=== PATIENT | female | born 1960 | race Caucasian/White ===

== ENCOUNTER 2018-08-10 18:20 | Observation (INO) ==
[2018-08-10] MEDS ORDERED: Ipratropium/Albuterol Neb 3 ML IH ONE ×2 (18:42→18:53)
[2018-08-10] MEDS ORDERED: predniSONE 20 MG TABLET PO ONE (18:42)
--- NOTE | 2018-08-10 19:03 | Emergency Department Note ---
Disposition Clinical Impression: Acute exacerbation of chronic obstructive airways disease, HOCM (hypertrophic obstructive cardiomyopathy), Dyspnea on exertion Disposition: Admitted As Inpatient Condition: Good Forms: ED Satisfaction Letter Time of Disposition: 21:10 SOB HPI - General Chief Complaint: ED Shortness of Breath/Dyspnea Stated Complaint: ERICK Time Seen by Provider: 08/10/18 18:35 Source: patient, family Limitations: no limitations Nursing Notes Reviewed: Yes Vital Signs Reviewed: Yes - History of Present Illness 57-year-old female history of COPD no home oxygen supplementation, CAD s/p stent presents to the emergency department for shortness of breath. She reports dyspnea on exertion. This is been ongoing for approximately 3 weeks. She was admitted at that time initially and had issues with hypoxia. She states her echocardiogram revealed a thickened septum. Upon review she had LVOT. She was recently evaluated a week ago for similar symptoms and discharge home. I saw h er at this time in she looks the same. She has reports of left lower leg swelling that was negative for deep vein thrombosis. She also had a CT imaging of her chest that did not reveal pulmonary embolism. She denies any fever or cough. She does not have a controller inhaler. She only takes DuoNeb and albuterol. She continues to smoke. Denies any chest pain or syncope. She currently finished her steroids. Pt Subjective Complaint: shortness of breath - Related Data Home Medications Medication Instructions Recorded Confirmed Albuterol Sulfate [Proair 2 puff IH Q4H PRN 04/26/15 08/10/18 Respiclick] Cyclobenzaprine [Flexeril] 10 mg PO BID 01/12/16 08/10/18 Gabapentin [Neurontin] 600 mg PO TID 01/12/16 08/10/18 Albuterol Neb [Proventil Neb] 3 ml IH TID PRN 05/29/16 08/10/18 Furosemide [Lasix] 40 - 80 mg PO BID PRN 02/07/17 08/10/18 Potassium Chloride [K-Tab ER] 20 meq PO BID PRN 02/07/17 08/10/18 Hydrocodone/Acetaminophen [[place] 1 tab PO Q6H PRN 07/28/18 08/10/18 5-325 Tablet] Magnesium Oxide [Magnesium] 250 mg PO DAILY 07/28/18 08/10/18 Aspirin [Adult Aspirin] 81 mg PO DAILY 08/10/18 08/10/18 Previous Rx's Medication Instructions Recorded Atorvastatin [Lipitor] 20 mg PO HS #30 tablet 07/31/18 Metoprolol XL (24 HR) Succ [Toprol 25 mg PO DAILY #30 tab.er.24h 07/31/18 Xl] Allergies Allergy/AdvReac Type Severity Reaction Status Date / Time Penicillins Allergy Severe See Verified 07/27/18 16:50 Comments Sulfa (Sulfonamide Allergy Nausea Verified 07/27/18 16:50 Antibiotics) ibuprofen AdvReac See Verified 07/27/18 16:50 Comments mirtazapine [From Remeron] AdvReac Seizure Verified 07/27/18 16:50 All systems ED: reviewed and negative except as stated. Review of Systems: As Per HPI Constitutional: Denies: fever, chills ENT ED: Denies: congestion Cardiovascular: Reports: dyspnea on exertion. Denies: chest pain Respiratory: Reports: cough, dyspnea Gastrointestinal: Denies: abdominal pain, nausea, vomiting Genitourinary: Denies: dysuria Musculoskeletal: Denies: back pain Integumentary: Denies: rash, abrasion Neurological: Denies: headache, weakness, numbness Endocrine: Reports: fatigue Past Medical History - Past Medical History Attestation: Yes The following information was validated with the patient. Source: patient Medical history: Reports: cancer, COPD, coronary artery disease, hyperlipidemia, hypertension, myocardial infarction Surgical history: Reports: angioplasty/stent, appendectomy, cholecystectomy, hysterectomy, orthopedic, other Psychiatric history: Reports: anxiety, depression TAX ADVISOR history: Reports: non-contributory - Social History Smoking Status: Current every day smoker Smokeless Tobacco Status: No Alcohol use: Reports: none Drug use: Reports: none Physical Exam - General Limitations: no limitations General appearance: alert, in distress (Moderate respiratory distress, dyspnea at rest with conversation), obese - Head Head exam: atraumatic, normocephalic, normal inspection - Chest Chest inspection: Present: normal inspection, symmetric chest wall rise - Respiratory Respiratory exam: Present: respiratory distress, wheezes, prolonged expiratory phase - Expanded Respiratory Exam Location: wheezes: Left, Right - Cardiovascular Cardiovascular exam: Present: regular rate, normal rhythm, normal heart sounds, other (no murmur with Valsalva) - Expanded Cardiovascular Exam Peripheral pulses: 2+: radial (R), radial (L) - Abdominal Exam Abdominal exam: Present: soft, Non-Tender, normal bowel sounds. Absent: tenderness, distention, guarding, rebound, rigidity - Extremities Exam Extremities exam: Present: normal inspection, full ROM, pedal edema (L > R), calf tenderness. Absent: tenderness - Back Exam Back exam: Present: normal inspection, full ROM. Absent: tenderness - Neurological Exam Neurological exam: Present: alert, oriented X3 - Psychiatric Psychiatric exam: Present: normal affect, anxious - Skin Skin exam: Present: warm, dry, intact, normal color. Absent: rash, cyanosis, diaphoresis Course Course Narrative: Patient presents with dyspnea on exertion and now at rest. She does continue to smoke. Recently evaluated 2 times for similar symptoms 1 requiring admission. She reports a thickened septum which revealed on her echocardiogram LVOT. She does not have a murmur on auscultation at bedside. Chest pain workup initiated including COPD exacerbation treatment as she has diffuse wheezing bilaterally. - Reevaluation(s) Reevaluation #1: Patient has significant improvement of her symptoms with a breathing treatment. Her chest x-ray did not reveal any pulmonary infiltrates. Troponin less than 0.03. Her labs or otherwise unremarkable. I discussed with cardiology on disposition including outpatient follow-up. Given her persistent symptoms it would benefit her to control other comorbidities including her COPD. At this time patient will be admitted for her COPD exacerbation after steroid in breathing treatments and have cardiology consulted regarding her LVOT. Patient is agreeable to this plan. - Consultations Consultation #1: Spoke to the on-call mirror framer Dr. Owen discussing prior ECHO 07/28 with 29 mmHg max gradient. Given symptoms and repeat ED visit may require admission for prompt cardiology consultation. Otherwise if significantly better may be ok to discharge home with outpatient follow-up. She is currently 96% on room air. Time: 19:35 Vital Signs Temperature 97.9 F 08/10/18 18:33 Pulse Rate 97 08/10/18 18:33 Respiratory Rate 18 08/10/18 18:33 Blood Pressure 155/72 08/10/18 18:33 O2 Sat by Pulse Oximetry 95 08/10/18 18:33 Temperature 98.5 F 08/10/18 20:50 Pulse Rate 106 08/10/18 20:50 Respiratory Rate 22 08/10/18 20:50 Blood Pressure 137/90 08/10/18 20:50 O2 Sat by Pulse Oximetry 93 08/10/18 20:55 Oxygen Delivery Oxygen Delivery Room Air Shortness of Breath/Dyspnea - MDM Narrative Medical decision making narrative: Patient was discussed with my attending physician who agrees with ED management and final disposition. They independently evaluated the patient. Please refer to their attestation to this encounter for additional information. This note was generated by [employer] voice recognition software and as a result grammatical or spelling errors may occur using this program. - Medical Records Medical records reviewed: Yes I reviewed the patient's medical records. - Lab Data Lab results reviewed: Yes I reviewed the patient's lab results. Result diagrams: 08/10/18 18:57 08/10/18 18:57 Lab Results 08/10/18 08/10/18 08/10/18 Range/Units 18:57 18:57 18:57 WBC 9.4 (4.3-11.1) K/mcL RBC 4.48 (3.82-4.97) M/mcL Hgb 14.3 (11.5-15.4) g/dL Hct 43.2 (35.3-44.9) % MCV 96.4 (83.0-100.0) fL MCH 31.9 (28.0-33.3) pg MCHC 33.1 (31.6-35.5) g/dL RDW 15.0 H (11.5-14.5) % Plt Count 83 L (140-400) K/mcL MPV 11.6 (9.4-12.4) fL Immature Gran % 0.3 (0-4) % Seg Neutrophils % 70.4 % Lymphocytes % 18.8 % Monocytes % 7.9 % Eosinophils % 2.0 % Basophils % 0.6 % Neutrophils # 6.6 (1.6-8.9) K/mcL Lymphocytes # 1.8 (0.6-4.6) K/mcL Monocytes # 0.7 (0.0-1.3) K/mcL Eosinophils # 0.2 (0.0-0.6) K/mcL Basophils # 0.1 (0.0-0.2) K/mcL Platelet Estimate Decreased L (Normal) Sodium 141 (136-145) mEq/L Potassium 3.9 (3.5-5.1) mEq/L Chloride 107 (98-107) mEq/L Carbon Dioxide 26 (23-29) mEq/L BUN 11 (6-20) mg/dL Creatinine 0.62 (0.60-1.20) mg/dL Est GFR ( Amer) > 60 (> 60) Est GFR (Non-Af Amer) > 60 (> 60) BUN/Creatinine Ratio 18 (6-26) Glucose 134 H (70-105) mg/dL Calculated Osmolality 293 (280-300) Calcium 9.4 (8.6-10.3) mg/dL Troponin I < 0.03 (< 0.04) ng/mL B-Natriuretic Peptide 72 (Less than 100) pg/mL - Radiology Data Radiology results reviewed: Yes I reviewed the patient's radiology results. Chest X-Ray 08/10/18 18:42 IMPRESSION: No acute pulmonary process. D/ / 08/10/2018 19:44:20 Rene Ramos MD / jose Interpreting Provider: Rene Ramos MD - EKG Data EKG attestation: Yes I reviewed and interpreted this EKG. EKG results narrative: EKG performed 1847 normal sinus rhythm 96 beats per minute, normal axis, early R wave progression, no ST elevation or depression, no LVH or Q waves. Compared to prior EKG performed 07/28/2017 with similar consistent findings concerning for a right ventricular conduction delay. No acute ischemic changes.
[2018-08-10 19:11] LABS: Basophils # 0.1 K/mcL (0.0-0.2); Basophils % 0.6 %; Eosinophils # 0.2 K/mcL (0.0-0.6); Hematocrit 43.2 % (35.3-44.9); Hemoglobin 14.3 g/dL (11.5-15.4); Immature Granulocytes % 0.3 % (0-4); Lymphocytes # 1.8 K/mcL (0.6-4.6); Lymphocytes % 18.8 %; Mean Corpuscular HGB Conc 33.1 g/dL (31.6-35.5); Mean Corpuscular Hemoglobin 31.9 pg (28.0-33.3); Mean Corpuscular Volume 96.4 fL (83.0-100.0); Mean Platelet Volume 11.6 fL (9.4-12.4); Monocytes % 7.9 %; Neutrophils # 6.6 K/mcL (1.6-8.9); Red Blood Count 4.48 M/mcL (3.82-4.97); Segmented Neutrophils % 70.4 %
[2018-08-10 19:12] LABS: Monocytes # 0.7 K/mcL (0.0-1.3); Platelet Count 83 K/mcL (140-400)
--- NOTE | 2018-08-10 19:25 | Emergency Department Note ---
Disposition Clinical Impression: Acute exacerbation of chronic obstructive airways disease Disposition: Still a Patient Forms: ED Satisfaction Letter General Adult HPI - General Chief complaint: ED Shortness of Breath/Dyspnea Stated complaint: ERICK Time Seen by Provider: 08/10/18 18:35 Source: patient, family Limitations: no limitations Nursing Notes Reviewed: Yes Vital Signs Reviewed: Yes - History of Present Illness HPI Narrative: ED ATTESTATION NOTE: I examined this patient and my medical decision-making was reviewed with the Resident Physician/AUTO PORTER/PA/Student. I have personally performed a face to face evaluation on this patient & I agree with the documented findings, disposition and treatment plan as described except to the extent set forth below. Patient was seen with emergency medicine resident Dr. Shine Willams please see copy of his note for details of this encounter Briefly: 49-year-old female smoker COPD no home O2 recently worked up for PE which a CT was negative consumed increasing cough shortness of breath some sputum denies fevers chills or anterior chest pain. Patient get DuoNeb steroids chest x-ray and screening labs. Disposition pending. Pain Scale: 4 - Related Data Home Medications Medication Instructions Recorded Confirmed Albuterol Sulfate [Proair 2 puff IH Q4H PRN 04/26/15 07/28/18 Respiclick] Fluticasone/Salmeterol [Advair 1 puff IH DAILY 04/26/15 07/28/18 250-50 Diskus] Cyclobenzaprine [Flexeril] 10 mg PO BID 01/12/16 07/28/18 Gabapentin [Neurontin] 600 mg PO TID 01/12/16 07/28/18 Albuterol Neb [Proventil Neb] 3 ml IH TID PRN 05/29/16 07/28/18 Furosemide [Lasix] 40 - 80 mg PO BID PRN 02/07/17 07/28/18 Potassium Chloride [K-Tab ER] 20 meq PO BID PRN 02/07/17 07/28/18 Hydrocodone/Acetaminophen [[place] 1 tab PO Q6H PRN 07/28/18 07/28/18 5-325 Tablet] Magnesium Oxide [Magnesium] 250 mg PO DAILY 07/28/18 07/28/18 Previous Rx's Medication Instructions Recorded Atorvastatin [Lipitor] 20 mg PO HS #30 tablet 07/31/18 Metoprolol XL (24 HR) Succ [Toprol 25 mg PO DAILY #30 tab.er.24h 07/31/18 Xl] predniSONE [PredniSONE] 40 mg PO DAILY #10 tablet 07/31/18 Allergies Allergy/AdvReac Type Severity Reaction Status Date / Time Penicillins Allergy Severe See Verified 07/27/18 16:50 Comments Sulfa (Sulfonamide Allergy Nausea Verified 07/27/18 16:50 Antibiotics) ibuprofen AdvReac See Verified 07/27/18 16:50 Comments mirtazapine [From Remeron] AdvReac Seizure Verified 07/27/18 16:50 Past Medical History - Past Medical History Medical history: Reports: cancer, COPD, coronary artery disease, hyperlipidemia, hypertension, myocardial infarction Surgical history: Reports: angioplasty/stent, appendectomy, cholecystectomy, hysterectomy, orthopedic, other Psychiatric history: Reports: anxiety, depression SKIN CARE SPECIALIST history: Reports: non-contributory - Social History Smoking Status: Current every day smoker Smokeless Tobacco Status: No Alcohol use: Reports: none Drug use: Reports: none Physical Exam - General Limitations: no limitations General appearance: alert, in distress (Moderate respiratory distress, dyspnea at rest with conversation), obese Course Vital Signs Temperature 97.9 F 08/10/18 18:33 Pulse Rate 97 08/10/18 18:33 Respiratory Rate 18 08/10/18 18:33 Blood Pressure 155/72 08/10/18 18:33 O2 Sat by Pulse Oximetry 95 08/10/18 18:33 Temperature 97.9 F 08/10/18 18:33 Pulse Rate 97 08/10/18 18:33 Respiratory Rate 18 08/10/18 18:33 Blood Pressure 155/72 08/10/18 18:33 O2 Sat by Pulse Oximetry 95 08/10/18 18:33 Oxygen Delivery Oxygen Delivery Room Air Medical Decision Making - Lab Data Result diagrams: 08/10/18 18:57 Lab Results 08/10/18 Range/Units 18:57 WBC 9.4 (4.3-11.1) K/mcL RBC 4.48 (3.82-4.97) M/mcL Hgb 14.3 (11.5-15.4) g/dL Hct 43.2 (35.3-44.9) % MCV 96.4 (83.0-100.0) fL MCH 31.9 (28.0-33.3) pg MCHC 33.1 (31.6-35.5) g/dL RDW 15.0 H (11.5-14.5) % Plt Count 83 L (140-400) K/mcL MPV 11.6 (9.4-12.4) fL
[2018-08-10 19:34] LABS: BUN/Creatinine Ratio 18 (6-26); Blood Urea Nitrogen 11 mg/dL (6-20); Calcium 9.4 mg/dL (8.6-10.3); Carbon Dioxide 26 mEq/L (23-29); Chloride 107 mEq/L (98-107); Glucose 134 mg/dL (70-105); Osmolality,Calculated 293 (280-300); Potassium 3.9 mEq/L (3.5-5.1); Sodium 141 mEq/L (136-145); Troponin I < 0.03 ng/mL (< 0.04); eGFR For Non-African Americans > 60 (> 60)
[2018-08-10 19:35] LABS: Platelet Estimate Decreased (Normal)
[2018-08-10] MEDS ORDERED: Naloxone 0.4 MG/ML INJ IVP PRN (21:54)
--- NOTE | 2018-08-10 22:31 | Internal Med History&Physical ---
Date of Encounter: 08/10/18 Time of Encounter: 21:56 Internal Medicine - H&P: HPI Chief complaint: Chest Pain/SOB History of present illness: Ms. Flores is a 57 year old female with past medical history of COPD, hypothyroidism, CAD with 2 stents, HOCM who presented to the ED complaining of progressive shortness of breath over the past 3 weeks and chest pain. Patient r eports dyspnea at rest and with exertion. No fever or chills. She does have a nonproductive cough at baseline but denies it being any worse. Has also noted lower extremity swelling more predominantly on the left leg. She reports intermittent right midsternal stabbing chest pain radiating to her right arm and back occurring at rest and with exertion. No other aggravating or alleviating factors. Patient states she sleeps in a reclining position with 2 pillows and is unable to lay flat. No reports of PND. Patient currently takes Lasix as needed but was recently instructed not to take it. Patient was recently discharged on the for evaluation of chest pain and COPD exacerbation. She does have a history of hypertrophic obstructive cardiomyopathy. Repeat echo at that time was concerning for worsening LVOT obstruction. She was seen by cardiology and patient was started on Toprol and instructed to take Lasix only with a 3 pound weight gain. Patient was again seen in the hospital on the for similar presentation. At the time left lower extremity duplex was negative for DVT and CTA was negative for PE. On arrival patient was mildly hypoxemic with saturations between 88 and 90 on room air which responded to 2 L nasal cannula. Blood pressure stable. Mildly tachycardic between 97 and 106. Laboratory workup was otherwise relatively unremarkable including negative troponin. Chest x-ray showed no acute pulmonary process. Patient received DuoNeb's and steroids. Case was discussed with cardiology who will reevaluate in the morning. Past Med Surg Social Fam HX - Past Medical History Medical history: cancer, COPD, coronary artery disease, hyperlipidemia, hypertension, myocardial infarction Additional medical history: cad, cvd, tachycardia. pneumonia 3 weeks ago. SMOKER. [place]. HEART STENTS. HYPOKALEMIA. THROMBOCYTOPENIA. CKD Psychiatric history: anxiety, depression - Past Surgical History Surgical History: angioplasty/stent, appendectomy, cholecystectomy, hysterectomy, orthopedic, other Additional surgical history: mi. hemorrhoid. lasik. right shoulder x 3. blad sarah sling - Social History Smoking Status: Current every day smoker Smokeless Tobacco Status: No Alcohol use: none Drug use: none - Family History Mother Living Status: Hx Family Cardiac Disorders: Yes Hx Family Endocrine Disorder: Yes (diabetes) Father Living Status: Hx Family Cardiac Disorders: Yes (CAD) Hx Family Respiratory Disorders: Yes Internal Medicine - H&P: Meds Albuterol Sulfate [Proair Respiclick] 2 puff IH Q4H PRN 04/26/15 [History] Cyclobenzaprine [Flexeril] 10 mg PO BID 01/12/16 [History] Gabapentin [Neurontin] 600 mg PO TID 01/12/16 [History] Albuterol Neb [Proventil Neb] 3 ml IH TID PRN 05/29/16 [History] Furosemide [Lasix] 40 - 80 mg PO BID PRN 02/07/17 [History] Potassium Chloride [K-Tab ER] 20 meq PO BID PRN 02/07/17 [History] Hydrocodone/Acetaminophen [[place] 5-325 Tablet] 1 tab PO Q6H PRN 07/28/18 [History] Magnesium Oxide [Magnesium] 250 mg PO DAILY 07/28/18 [History] Atorvastatin [Lipitor] 20 mg PO HS #30 tablet 07/31/18 [Rx] Metoprolol XL (24 HR) Succ [Toprol Xl] 25 mg PO DAILY #30 tab.er.24h 07/31/18 [Rx] Aspirin [Adult Aspirin] 81 mg PO DAILY 08/10/18 [History] Allergy/AdvReac Type Severity Reaction Status Date / Time Penicillins Allergy Severe See Verified 07/27/18 16:50 Comments Sulfa (Sulfonamide Allergy Nausea Verified 07/27/18 16:50 Antibiotics) ibuprofen AdvReac See Verified 07/27/18 16:50 Comments mirtazapine [From Remeron] AdvReac Seizure Verified 07/27/18 16:50 All Systems PM: A 10-system review of systems was performed and is negative for pertinent findings except as documented above in the HPI. - Constitutional Constitutional: no chills, no fever(s), no night sweats - EENT Eyes: no change in vision, no discharge, no pain, no photophobia Ears: no ear discharge, no ear pain, no tinnitus Nose, mouth and throat: no dysphagia, no nasal discharge, no neck pain, no sore throat - Cardiovascular Cardiovascular ROS IM: no chest pain, no diaphoresis, no dyspnea, no lightheadedness, no palpitations, no syncope - Respiratory Respiratory: no cough, no dyspnea, no wheezing, no excessive phlegm production - Gastrointestinal Gastrointestinal: no abdominal pain, no diarrhea, no hematemesis, no hematochezia, no melena, no nausea, no vomiting - Genitourinary Genitourinary: no change in urinary stream, no dysuria, no flank pain, no hematuria - Musculoskeletal Musculoskeletal ROS IM: no numbness, no tingling - Integumentary Integumentary IM: no rash, no unusual bruising - Neurological Neurological ROS: no confusion, no convulsions, no focal weakness, no numbness, no tingling, no tremor(s) - Hematologic/Lymphatic Hematologic/Lymphatic: no easy bruising - Constitutional Vitals: Temp Pulse Resp BP Pulse Ox 98.5 F 106 22 137/90 93 08/10/18 20:50 08/10/18 20:50 08/10/18 20:50 08/10/18 20:50 08/10/18 20:55 Exam: General: Alert and oriented Skin:Normal color, no rash, no lesions. HEENT:EOM, pupils equal, round and reactive. Cardiovascular:Normal S1 & S2, no rubs, murmurs or gallops. No JVD. Pulse regular. Lungs:Normal breath sounds, no wheezes or crackles. Abdomen:Soft, non-tender, no rigidity. Extremities:No deformity, no edema or tenderness, no joint swelling or clubbing. Neurological:Normal cognition and motor skills. Pulses:Carotid and radial pulses normal +2. Rest of the physical exam is non contributory Internal Med - H&P Results - Labs CBC & Chem 7: 08/11/18 05:59 08/11/18 05:59 Labs: Short CBC 08/10/18 Range/Units 18:57 WBC 9.4 (4.3-11.1) K/mcL Hgb 14.3 (11.5-15.4) g/dL Hct 43.2 (35.3-44.9) % Plt Count 83 L (140-400) K/mcL Neutrophils # 6.6 (1.6-8.9) K/mcL BMP 08/10/18 18:57 Sodium 141 Potassium 3.9 Chloride 107 Carbon Dioxide 26 BUN 11 Creatinine 0.62 Glucose 134 H Calcium 9.4 Cardiac Enzymes 08/10/18 Range/Units 18:57 Troponin I < 0.03 (< 0.04) ng/mL - Impressions ITS Impressions Chest X-Ray 08/10/18 18:42 IMPRESSION: No acute pulmonary process. D/ / 08/10/2018 19:44:20 Rene Ramos MD / jose Interpreting Provider: Rene Ramos MD - Assessment and Plan (1) Acute respiratory failure with hypoxia Current Visit: No Status: Acute Assessment and plan: Patient presents with shortness of breath of the past 3 weeks. On arrival patient patient saturating between 88-90% on room air. Responded to 2 L nasal cannula. Chest CTA was performed on the which was negative for PE. Chest x-ray on this admission showed no acute pulmonary process. Suspect secondary to COPD exacerbation plus or minus CHF exacerbation. -Continue with 2Oxygen support -Treat for COPD exacerbation -Given patient's history of HOCM, will hold off Lasix for now and wait for cardiology to assess. (2) Acute exacerbation of chronic obstructive airways disease Current Visit: Yes Status: Acute Assessment and plan: Patient presents with progressive shortness of breath for the past 3 weeks. No reports of worsening cough, fever or chills. Chest x-ray showed no acute pulmonary process. Patient was found to be mildly hypoxemic on arrival saturating between 88-90% on room air. Responded to 2 L nasal cannula. Bilateral wheezing and decreased aeration noted on lung examination. Suspect mild COPD exacerbation. -Duo nebs -Steroids -Start patient on azithromycin (3) HOCM (hypertrophic obstructive cardiomyopathy) Current Visit: Yes Status: Chronic Assessment and plan: History of hypertrophic obstructive cardiomyopathy. Repeat echoon 07/28 concerning for worsening LVOT obstruction. She was seen by cardiology and patient was started on Toprol and instructed to take Lasix only with a 3 pound weight gain. Presents again with intermittent right midsternal stabbing chest pain radiating to her right arm and back occurring at rest and with exertion. -Appreciate cardiology recommendations. -continue with BB (4) Chest pain Current Visit: No Status: Acute Assessment and plan: Patient presents with intermittent right midsternal stabbing chest pain radiating to her right arm and back occurring at rest and with exertion. Previous history of coronary artery disease status post stents. Negative troponin 1. EKG shows no ischemic changes. Patient evaluated for similar presentation by cardiology during last admission. Medical management and outpatient follow-up was advised. Low suspicion for ACS at this time. -We will give loading dose of aspirin -Trend troponin -Appreciate cardiology recommendations continue ASA, Statin, BB Qualifiers: Chest pain type: unspecified Qualified Code(s): R07.9 - Chest pain, unspecified (5) Lower extremity edema Current Visit: Yes Status: Acute Assessment and plan: She reports bilateral lower extremity edema with left greater than right. Venous duplex was performed in the ED on the which was negative for DVT. Patient is taking Lasix as needed and was instructed by cardiology to take if she develops a 3 pound weight gain or more. Patient does have 2+ pitting edema more prominently on the left leg. Given patient's history of HOCM will await cardiology evaluation before treating. (6) DVT prophylaxis Current Visit: Yes Status: Acute Assessment and plan: subCutaneous heparin - Time Spent With Patient Total time spent is greater than 50% in coordination of care (as documented) at patient's floor/unit and/or counseling patient:
[2018-08-10] MEDS: Azithromycin 500 MG in D5% in Water 250 ML IVPB SCH (23:33)
[2018-08-11] MEDS ORDERED: Aspirin 325 MG TABLET PO ONE (04:13)
[2018-08-11] MEDS ORDERED: *HR* HYDROcodone/Acet 5/325 mg TABLET PO PRN (04:21)
[2018-08-11] MEDS: *HR* Heparin 5,000 UNIT/ML VIAL SQ SCH ×3 (05:03→20:58)
[2018-08-11 06:48] LABS: Mean Platelet Volume 12.3 fL (9.4-12.4)
[2018-08-11 06:49] LABS: Hematocrit 44.5 % (35.3-44.9); Hemoglobin 14.7 g/dL (11.5-15.4); Immature Platelets 9.8 % (1.1-6.1); Mean Corpuscular Hemoglobin 31.7 pg (28.0-33.3); Mean Corpuscular Volume 95.9 fL (83.0-100.0); Red Blood Count 4.64 M/mcL (3.82-4.97); Red Cell Distribution Width 14.8 % (11.5-14.5)
[2018-08-11 07:09] LABS: BUN/Creatinine Ratio 20 (6-26); Blood Urea Nitrogen 12 mg/dL (6-20); Calcium 9.6 mg/dL (8.6-10.3); Carbon Dioxide 24 mEq/L (23-29); Chloride 106 mEq/L (98-107); Glucose 111 mg/dL (70-105); Osmolality,Calculated 290 (280-300); Potassium 4.6 mEq/L (3.5-5.1); Sodium 140 mEq/L (136-145); Troponin I < 0.03 ng/mL (< 0.04); eGFR For Non-African Americans > 60 (> 60)
[2018-08-11] MEDS: Gabapentin 300 MG CAPSULE PO SCH ×3 (08:36→20:58)
[2018-08-11] MEDS: Magnesium Oxide 400 MG TABLET PO SCH (08:36)
[2018-08-11] MEDS: Metoprolol XL (24 HR) Succ 25 MG TAB.ER.24H PO SCH (08:36)
[2018-08-11] MEDS: Aspirin Enteric Coated 81 MG Tablet PO SCH (08:37)
--- NOTE | 2018-08-11 10:30 | Internal Med Progress Note ---
<Jose Gonzalez - Last Filed: 08/11/18 10:52> Hospitalist Progress Note - Encounter Date of Encounter: 08/11/18 Time of Encounter: 10:26 - Subjective Interval History: Ms. Flores is a 57 year old female with past medical history of COPD not on home O2, hypothyroidism on synthroid, CAD with 2 stents on meoprolol, statin, aspirin, HOCM who presented to the ED complaining of progressive shortness of breath over the past 3 weeks and chest pain. Patient reports dyspnea at rest and with exertion. No fever or chills. She does have a nonproductive cough at baseline but denies it being any worse. Intermittent right midsternal stabbing chest pain radiating to her right arm and back occurring at rest and with exertion is 6/10. No other aggravating or alleviating factors. Patient states she sleeps in a reclining position with 2 pillows and is unable to lay flat. No reports of PND. Does admit to worsening LE edema. Patient used to take Lasix as needed but was recently instructed not to take it, unsure of reasoning. She was discharged recently for similar symptoms. She does have a history of hypertrophic obstructive cardiomyopathy. Repeat echo at this visit was concerning for worsening LVOT obstruction. She was seen by cardiology and started on Toprol. Patient was again seen in the hospital on the for similar presentation. At the time left lower extremity duplex was negative for DVT and CTA was negative for PE. - Exam Vitals: Temp Pulse Resp BP Pulse Ox 97.9 F 82 18 103/66 94 08/11/18 06:52 08/11/18 06:52 08/11/18 06:52 08/11/18 06:52 08/11/18 06:52 Exam: General: Alert and oriented Skin:Normal color, no rash, no lesions. HEENT:EOM, pupils equal, round and reactive. Cardiovascular:Normal S1 & S2, no rubs, murmurs or gallops. No JVD. Pulse regular. Lungs:diffuse wheezing bilaterally. No crackles or rales Abdomen:Soft, non-tender, no rigidity. Extremities:No deformity, 2+ pitting edema BL lower extremity Neurological:Normal cognition and motor skills. Pulses:Carotid and radial pulses normal +2. Rest of the physical exam is non contributory - Assessment and Plan (1) Chest pain Current Visit: Yes Status: Acute Assessment and Plan: 57F PMHx COPD, hypothyroidism, CAD with 2 stents, high BMI presents with chest pain Blood work unremarkable except for low potassium, we will replenish EKG reviewed and no acute changes Troponin negative x 3 last echo less than 2 weeks ago demonstrated evidence of LVOT obstruction, systolic anterior motion of the anterior leaflet of the mitral valve. Continue cardiac monitoring Cardiology has been consulted. Patient is unable to tolerate stress test and it is recommended for her to obtain MRI of the heart at [facility] Continue ASA, metoprolol, O2 as needed for SPO2 > 90. Patient has borderline low BP, will hold nitro for now. [place] 5 as needed for pain. Recent TSH, lipid panel WNL. (2) Acute exacerbation of chronic obstructive airways disease Current Visit: Yes Status: Acute Assessment and Plan: Patient not on home O2. Currently satting well on 2L NC. She is also an active smoker, history of CAD, HOCM. Improved with 60mg prednisone at the emergency department Encouraged smoking cessation CXR without acute process Continue with Nuonebs as needed Prednisone 40mg PO BID O2 for SPO2 > 90% Will consider LABA prior to patient's discharge. (3) HOCM (hypertrophic obstructive cardiomyopathy) Current Visit: Yes Status: Chronic Assessment and Plan: History of HOCM. Patient cannot tolerate stress test. Will continue cardiac monitoring. Cardio consulted and recommendations appreciated. (4) DVT prophylaxis Current Visit: No Status: Acute Assessment and Plan: SubQ heparin (5) Morbid obesity Current Visit: No Status: Chronic Assessment and Plan: Encouraged lifestyle modifications including diet and exercise. Follow up outpatient. DVT Prophylaxis: subq heparin - Time Spent with Patient Total time spent is greater than 50% in coordination of care (as documented) at patient's floor/unit and/or counseling patient: Greater than 35 minutes Plan of Care Discussed with: patient Internal Medicine: Result - Labs CBC & Chem 7: 08/11/18 05:59 08/11/18 05:59 Labs: Short CBC 08/10/18 08/11/18 Range/Units 18:57 05:59 WBC 9.4 6.9 (4.3-11.1) K/mcL Hgb 14.3 14.7 (11.5-15.4) g/dL Hct 43.2 44.5 (35.3-44.9) % Plt Count 83 L 86 L (140-400) K/mcL Neutrophils # 6.6 (1.6-8.9) K/mcL BMP 08/10/18 08/11/18 18:57 05:59 Sodium 141 140 Potassium 3.9 4.6 Chloride 107 106 Carbon Dioxide 26 24 BUN 11 12 Creatinine 0.62 0.60 Glucose 134 H 111 H Calcium 9.4 9.6 Cardiac Enzymes 08/10/18 08/11/18 Range/Units 18:57 05:59 Troponin I < 0.03 < 0.03 (< 0.04) ng/mL - Impressions Impressions Chest X-Ray 08/10/18 18:42 IMPRESSION: No acute pulmonary process. D/ / 08/10/2018 19:44:20 Rene Ramos MD / jose Interpreting Provider: Rene Ramos MD Consult Discharge Plan - Plan Referrals: Nicolette Renteria CNP [Primary Care Provider] - (APPT W/R) <Darrian Sylvester - Last Filed: 08/11/18 15:52> Hospitalist Progress Note - Encounter Date of Encounter: 08/11/18 - Exam Vitals: Temp Pulse Resp BP Pulse Ox 98.1 F 80 17 130/68 95 08/11/18 11:12 08/11/18 11:12 08/11/18 11:12 08/11/18 11:12 08/11/18 11:12 - Assessment and Plan (1) Chest pain Current Visit: Yes Status: Acute (2) Acute respiratory failure with hypoxia Current Visit: No Status: Acute (3) HOCM (hypertrophic obstructive cardiomyopathy) Current Visit: Yes Status: Chronic (4) Acute exacerbation of chronic obstructive airways disease Current Visit: Yes Status: Acute (5) Lower extremity edema Current Visit: Yes Status: Acute (6) DVT prophylaxis Current Visit: Yes Status: Acute - Time Spent with Patient Total time spent is greater than 50% in coordination of care (as documented) at patient's floor/unit and/or counseling patient: Internal Medicine: Result - Labs CBC & Chem 7: 08/11/18 05:59 08/11/18 05:59 Labs: Short CBC 08/10/18 08/11/18 Range/Units 18:57 05:59 WBC 9.4 6.9 (4.3-11.1) K/mcL Hgb 14.3 14.7 (11.5-15.4) g/dL Hct 43.2 44.5 (35.3-44.9) % Plt Count 83 L 86 L (140-400) K/mcL Neutrophils # 6.6 (1.6-8.9) K/mcL BMP 08/10/18 08/11/18 18:57 05:59 Sodium 141 140 Potassium 3.9 4.6 Chloride 107 106 Carbon Dioxide 26 24 BUN 11 12 Creatinine 0.62 0.60 Glucose 134 H 111 H Calcium 9.4 9.6 Cardiac Enzymes 08/10/18 08/11/18 Range/Units 18:57 05:59 Troponin I < 0.03 < 0.03 (< 0.04) ng/mL - Impressions Impressions Chest X-Ray 08/10/18 18:42 IMPRESSION: No acute pulmonary process. D/ / 08/10/2018 19:44:20 Rene Ramos MD / jose Interpreting Provider: Rene Ramos MD - Attending Attestation I examined this patient and my medical decision-making was reviewed with the Resident Physician Dr. Gonzalez. I agree with the documented findings, disposition and treatment plan as described except to the extent set forth below. Ms. Flores is a 57 year old female with past medical history of COPD, hypothyroidism, CAD with 2 stents, chronic diastolic CHF, morbid obesity and HO CM who presented to the ED complaining of progressive shortness of breath over the past 3 weeks, diffuse wheezing and chest pain. Patient reports dyspnea at rest and with exertion. She does have a nonproductive cough. She also noted lower extremity swelling more predominantly on the left leg. She reports intermittent right midsternal stabbing chest pain radiating to her right arm and back occurring at rest and with exertion. No other aggravating or alleviating factors. In the ER patient was mildly hypoxemic with saturations between 88 and 90 on room air which responded to 2 L nasal cannula. She was admitted in the hospital and placed on night monitor. Patient still have diffuse wheezing and moderate to severe dyspnea on exertion, shortness of breath. Her serial troponin came back as negative. She denied any active CP now. No cough. Gen: A, A< O x3 Chest: Dimisnihed BS b/l ,severe wheezing, no crackles, no rales Heart: S1S2+ RRR No murmurs a/p 1. Acute hypoxic respiratory failure 2. Acute COPD exacerbation Started on high dose systemic steroids continue frequent bronchodilator therapy try to wean her off the oxygen as she tolerates may need home O2 eval 3. Chest pain 4. HCOM 5. Chronic diastolic CHF serial troponin's were negative cardiology recommend out pt MRI of heart Also recommend to send her home on event monitor out pt f/u with Card <Jose Gonzalez - Last Filed: 08/11/18 10:52> (1) Chest pain Qualifiers: Chest pain type: unspecified Qualified Code(s): R07.9 - Chest pain, unspecified <Darrian Sylvester - Last Filed: 08/11/18 15:52> (1) Chest pain Qualifiers: Chest pain type: unspecified Qualified Code(s): R07.9 - Chest pain, unspecified
[2018-08-11] MEDS ORDERED: Furosemide 40 MG TABLET PO PRN (11:04)
--- NOTE | 2018-08-11 13:19 | Cardiology Consult Note ---
<Nicolette Taylor - Last Filed: 08/11/18 13:27> Date of Encounter: 08/11/18 Time of Encounter: 09:00 Assessment and Plan (1) HOCM (hypertrophic obstructive cardiomyopathy) Current Visit: Yes Status: Chronic Patient has a known history of HOCM Last echo 07/28/18-LVEF 65-70%, mild left ventricular diastolic dysfunction, LVOT obstruction with a max gradient 29 mmHg and systolic anterior motion of the anterior leaflet of mitral valve. Normal left ventricular chamber size, wall thickness and function. Moderate LVH, normal right ventricular structure and function, mild aortic stenosis. Patient to be further evaluated with event monitor for 2 weeks on discharge Follow-up outpatient with [place] [facility]ology to arrange for cardiac MRI which will take place at [facility] for possible placement of defibrillator Patient advised to quit smoking Lasix to be decreased from 80 mg when necessary to 40 mg when necessary, only to be taken if greater than 3 pound weight gain, in order to do cautious, gentle diuresis Cardiology to sign off at this time, please reconsult as necessary, all questions and have been addressed and answered, follow-up has been arranged. (2) Chest pain Current Visit: Yes Status: Acute Patient has complaint of intermittent chest pain EKG showed normal sinus rhythm, heart rate 96, normal axis, right ventricular conduction delay, IA 138, QRS 91, QT 352, QTC 445. Troponins negative times 2 BNP 72 Continue aspirin, atorvastatin, metoprolol XL 25 mg daily Qualifiers: Chest pain type: unspecified Qualified Code(s): R07.9 - Chest pain, unspecified (3) COPD exacerbation Current Visit: No Status: Acute Patient presents with progressive shortness of breath Diffuse wheezes bilaterally Patient was 80-90% oxygen saturation on arrival Patient is status post steroids Continue DuoNeb, azithromycin Oxygen support as necessary (4) DVT prophylaxis Current Visit: No Status: Acute Subcutaneous heparin Discussion w patient/family: The assessment and plan as outlined above was discussed with the patient and/or family members who expressed understanding and agreement. All questions were answered. Thank you for involving us in the care of your patient. Please call with any questions. History of Present Illness Consult date: 08/11/18 Consult reason: LVOT obstruction Chief complaint: Shortness of breath History of present illness: Ms. Flores is a 57 year old female presenting with complaint of shortness of breath over the past 1 month that has been progressive. She has a past medical history coronary artery disease with prior IN and 2 stents placed at [facility] as well as [facility] both in 2005. She also has past medical history of HOCM, hyperlipidemia, hypertension, hypothyroidism, COPD, and is a current smoker. She states that her shortness of breath has been progressive over the past 3 weeks she was recently seen by cardiology who added Toprol and told her to take Lasix when necessary whenever she gained more than 3 pounds to avoid excessive diuresis. She also admits to nonproductive cough, lower extremity edema and intermittent chest pain that is not worsened by exertion. S he had an echo on 07/28/18 which showed LVEF 65-70% with mild left ventricular diastolic dysfunction, LVOT obstruction with maximum gradient 29 mmHg, systolic anterior motion of anterior leaflet of mitral valve, normal left ventricular chamber size, wall thickness, and function, moderate LVH. Past Med Surg Social Fam HX - Past Medical History Medical history: cancer, COPD, coronary artery disease, hyperlipidemia, hypertension, myocardial infarction, other Additional medical history: THYROID DIS Psychiatric history: anxiety, depression - Past Surgical History Surgical History: appendectomy, cholecystectomy, hysterectomy Additional surgical history: mi. hemorrhoid. lasik. right shoulder x 3. bladder sling - Social History Smoking Status: Current every day smoker Packs per day: .10 Smokeless Tobacco Status: No Alcohol use: none Drug use: none - Family History Mother Living Status: Hx Family Cardiac Disorders: Yes Hx Family Endocrine Disorder: Yes (diabetes) Father Living Status: Hx Family Cardiac Disorders: Yes (CAD) Hx Family Respiratory Disorders: Yes Medications and Allergies Cyclobenzaprine [Flexeril] 10 mg PO BID 01/12/16 [History] Gabapentin [Neurontin] 600 mg PO TID 01/12/16 [History] Albuterol Neb [Proventil Neb] 3 ml IH Q4-6H PRN 05/29/16 [History] Furosemide [Lasix] 80 mg PO QAM PRN 02/07/17 [History] Potassium Chloride [K-Tab ER] 20 meq PO BID PRN 02/07/17 [History] Hydrocodone/Acetaminophen [[place] 5-325 Tablet] 1 tab PO Q6H PRN 07/28/18 [History] Magnesium Oxide [Magnesium] 250 mg PO DAILY 07/28/18 [History] Atorvastatin [Lipitor] 20 mg PO HS #30 tablet 07/31/18 [Rx] Metoprolol XL (24 HR) Succ [Toprol Xl] 25 mg PO DAILY #30 tab.er.24h 07/31/18 [Rx] Aspirin [Adult Aspirin] 81 mg PO DAILY 08/10/18 [History] Albuterol Sulfate [Proair Hfa] 2 puff IH Q4H PRN 08/11/18 [History] Allergy/AdvReac Type Severity Reaction Status Date / Time Penicillins Allergy Severe See Verified 07/27/18 16:50 Comments Sulfa (Sulfonamide Allergy Nausea Verified 07/27/18 16:50 Antibiotics) ibuprofen AdvReac See Verified 07/27/18 16:50 Comments mirtazapine [From Remeron] AdvReac Seizure Verified 07/27/18 16:50 All Systems Review: The remainder of the systems were reviewed and are negative - Constitutional Constitutional: no chills, no fever(s) - EENT Eyes: no loss of vision Nose, mouth and throat: no dysphagia - Cardiovascular Cardiovascular: chest pain at rest, dyspnea at rest, dyspnea on exertion, leg edema, no radiating jaw, neck or arm pain, no orthopnea, no palpitations, no syncope - Respiratory Respiratory: cough, dyspnea - Gastrointestinal Gastrointestinal: no abdominal pain, no constipation, no diarrhea - Genitourinary Genitourinary: no dysuria, no hematuria - Musculoskeletal Musculoskeletal: no arthralgias, no myalgias - Integumentary Integumentary: no rash - Neurological Neurological: no focal weakness, no syncope - Psychiatric Psychiatric: no anxiety, no depression - Hematological/Lymphatic Hematologic/Lymphatic: no easy bleeding, no easy bruising Physical Examination Vital Signs, Last 4 Hours Temp Pulse Resp BP Pulse Ox 08/11/18 11:12 98.1 F 80 17 130/68 95 General: Conversant, No Apparent Distress HEENT: Atraumatic, Normocephaly, Mucus Membranes Moist Neck: No JVD, Normal carotid pulses Cardiac: Reg Rate and Rhythm, Normal S1 and S2, No Murmur Lungs: Other (Diffuse wheezes bilaterally) Neuro: Alert and responsive, No focal deficits noted Abdomen: Soft, Non-Tender Skin: No rashes noted on visualized skin Musculoskeletal: No Chest Wall Tenderness Extremities: No Clubbing, No Cyanosis, Normal Pulses, Other (1+ pitting edema) Results 08/11/18 05:59 08/11/18 05:59 Lab Results 08/10/18 08/10/18 08/10/18 18:57 18:57 18:57 WBC 9.4 Hgb 14.3 Hct 43.2 Plt Count 83 L Sodium 141 Potassium 3.9 Chloride 107 Carbon Dioxide 26 BUN 11 Creatinine 0.62 Glucose 134 H Calcium 9.4 Troponin I < 0.03 B-Natriuretic Peptide 72 08/11/18 08/11/18 05:59 05:59 WBC 6.9 Hgb 14.7 Hct 44.5 Plt Count 86 L Sodium 140 Potassium 4.6 Chloride 106 Carbon Dioxide 24 BUN 12 Creatinine 0.60 Glucose 111 H Calcium 9.6 Troponin I < 0.03 B-Natriuretic Peptide Consult Discharge Plan - Plan Referrals: Nicolette Renteria, [employer]UM DYEING MACHINE OPERATOR [Primary Care Provider] - (APPT W/R) <Jermaine Jeong A - Last Filed: 08/11/18 16:19> Date of Encounter: 08/11/18 - Attending Attestation I have personally performed a face to face evaluation on this patient. I have reviewed and agree with the documented findings and care plan as documented by the DRUM DYEING MACHINE OPERATOR. History and Exam by me shows: 57-year-old pleasant female current everyday smoker, with history of HCM, admitted for COPD exacerbation and atypical chest pain. Recent echo had shown worsening of LVOT gradient as well as interventricular septum of 1.5 cm AAOX3 in NAD at the bedside Hemodynamically stable Cardiopulmonary exam revealed S1, S2, no murmur; diffuse expiratory wheezes Rhythm reviewed - sinus rhythm, no acute ST T changes Impression/plan: She cannot undergo exercise or pharmacological stress test at this time due to active COPD, and she states she can walk more than 3 steps before getting short of breath. For risk stratification for SCD, she will need cardiac MRI with [facility]. Event monitor to evaluate for nonsustained VT. Continue beta masood, cautious diuresis. She was instructed to follow-up with our office as soon as she is discharged from the hospital so we can arrange for the CMR. Thanks, Jermaine Jeong MD [facility] Assessment and Plan Discussion w patient/family: The assessment and plan as outlined above was discussed with the patient and/or family members who expressed understanding and agreement. All questions were answered. Thank you for involving us in the care of your patient. Please call with any questions. History of Present Illness History of present illness: Ms. Flores is a 57 year old female All Systems Review: The remainder of the systems were reviewed and are negative Results 08/11/18 05:59 08/11/18 05:59 Lab Results 08/10/18 08/10/18 08/10/18 18:57 18:57 18:57 WBC 9.4 Hgb 14.3 Hct 43.2 Plt Count 83 L Sodium 141 Potassium 3.9 Chloride 107 Carbon Dioxide 26 BUN 11 Creatinine 0.62 Glucose 134 H Calcium 9.4 Troponin I < 0.03 B-Natriuretic Peptide 72 08/11/18 08/11/18 05:59 05:59 WBC 6.9 Hgb 14.7 Hct 44.5 Plt Count 86 L Sodium 140 Potassium 4.6 Chloride 106 Carbon Dioxide 24 BUN 12 Creatinine 0.60 Glucose 111 H Calcium 9.6 Troponin I < 0.03 B-Natriuretic Peptide
[2018-08-11] MEDS: Ipratropium/Albuterol Neb 3 ML IH PRN ×2 (16:21→21:15)
[2018-08-11] MEDS ORDERED: predniSONE 20 MG TABLET PO SCH (17:00)
[2018-08-11] MEDS: Furosemide 40 MG TABLET PO SCH (17:26)
[2018-08-11] MEDS: Budesonide/Formoterol 80/4.5 MDI IH SCH (21:14)
[2018-08-11 21:39] LABS: Bilirubin,Urine Negative (Negative); Blood,Urine Negative (Negative); Clarity,Urine Clear (Clear); Color,Urine Yellow (Yellow); Glucose,Urine (UA) Normal (Normal); Ketones,Urine Negative (Negative); Leukocyte Esterase,Urine Negative (Negative); Nitrite,Urine Negative (Negative); PH,Urine 6.5 pH Units (5.0-8.0); Protein,Urine Negative (Neg-Trace); Specific Gravity,Urine 1.011 (1.010-1.025); Urobilinogen,Urine Normal (Normal)
[2018-08-11] MEDS: Azithromycin 500 MG in D5% in Water 250 ML IVPB SCH (23:07)
[2018-08-11] MEDS: MethylPREDNISolone 40 MG/ML VIAL IVP SCH (23:08)
[2018-08-12] MEDS: *HR* Heparin 5,000 UNIT/ML VIAL SQ SCH (05:52)
[2018-08-12 07:46] VITALS: BP 129/73
[2018-08-12] MEDS: Ipratropium/Albuterol Neb 3 ML IH PRN (07:47)
[2018-08-12] MEDS: Budesonide/Formoterol 80/4.5 MDI IH SCH (07:47)
[2018-08-12] MEDS: MethylPREDNISolone 40 MG/ML VIAL IVP SCH (07:48)
[2018-08-12] MEDS: Aspirin Enteric Coated 81 MG Tablet PO SCH (07:49)
[2018-08-12] MEDS: Magnesium Oxide 400 MG TABLET PO SCH (07:49)
[2018-08-12] MEDS: Metoprolol XL (24 HR) Succ 25 MG TAB.ER.24H PO SCH (07:49)
[2018-08-12] MEDS: Furosemide 40 MG TABLET PO SCH (07:49)
[2018-08-12] MEDS: Gabapentin 300 MG CAPSULE PO SCH (07:49)
--- NOTE | 2018-08-12 10:49 | Discharge Summary ---
- NOTES TO OUTPATIENT PROVIDER Notes to Outpatient Provider: Follow up with PCP in one week. f/u with Cardiology in 1-2 weeks. Please f/u with Cardiology about event monitor. Please take your as needed Lasix 40mg only instead of 80 mg when necessary. Also take only if you have greater than 3 pound weight gain, in order to do cautious, gentle diuresis Orders not resulted at time of discharge: Pending orders 08/11/18 11:31 ECG event monitor 2 weeks [ECG] Routine Date of Encounter: 08/12/18 Time of Encounter: 10:42 - Discharge Diagnosis (1) Chest pain Priority: Primary Status: Acute Qualifiers: Chest pain type: unspecified Qualified Code(s): R07.9 - Chest pain, unspecified (2) Acute respiratory failure with hypoxia Priority: Primary Status: Acute (3) HOCM (hypertrophic obstructive cardiomyopathy) Priority: Secondary Status: Chronic (4) Acute exacerbation of chronic obstructive airways disease Priority: Secondary Status: Acute (5) Lower extremity edema Priority: Secondary Status: Acute (6) DVT prophylaxis Priority: Secondary Status: Acute Hospital course: Ms. Flores is a 57 year old female with past medical history of COPD, hypothyroidism, CAD with 2 stents, chronic diastolic CHF, morbid obesity and HOCM who presented to the ED complaining of progressive shortness of breath over the past 3 weeks, diffuse wheezing and chest pain. Patient reports dyspnea at rest and with exertion. She does have a nonproductive cough. She also noted lower extremity swelling more predominantly on the left leg. She reports intermittent right midsternal stabbing chest pain radiating to her right arm and back occurring at rest and with exertion. No other aggravating or alleviating factors. In the ER patient was mildly hypoxemic with saturations between 88 and 90 on room air which responded to 2 L nasal cannula. She was admitted in the hospital and placed on director of cardiac cath lab. Her serial troponin came back as negative. She denied any active CP now. Patient was you monitor by senior sales assistant who recommended to discharge her home on event monitor and need outpatient follow-up for MRI of the heart. Also recommend, lasix to be decreased from 80 mg when necessary to 40 mg when necessary, only to be taken if greater than 3 pound weight gain, in order to do cautious, gentle diuresisShe does have severe COPD exacerbation and acute hypoxic respiratory failure. She was started on high-dose IV steroids, Symbicort and frequent bronchodilator therapy. Her symptoms improved now, she seems to be back to baseline. However she does need O2 continuously 2 lit at resting and ambulation. Will arrange for home O2. - Time Spent with Patient Total time spent providing and/or coordinating discharge services: - Discharge Medications Prescriptions: No Action Cyclobenzaprine [Flexeril] 10 mg PO BID Gabapentin [Neurontin] 600 mg PO TID Albuterol Neb [Proventil Neb] 3 ml IH Q4-6H PRN PRN Reason: Wheezing Furosemide [Lasix] 80 mg PO QAM PRN PRN Reason: SWELLING Potassium Chloride [K-Tab ER] 20 meq PO BID PRN PRN Reason: ONLY WITH LASIX Hydrocodone/Acetaminophen [[place] 5-325 Tablet] 1 tab PO Q6H PRN PRN Reason: Pain Magnesium Oxide [Magnesium] 250 mg PO DAILY Atorvastatin [Lipitor] 20 mg PO HS #30 tablet Metoprolol XL (24 HR) Succ [Toprol Xl] 25 mg PO DAILY #30 tab.er.24h Aspirin [Adult Aspirin] 81 mg PO DAILY Albuterol Sulfate [Proair Hfa] 2 puff IH Q4H PRN PRN Reason: Shortness Of Breath Home Medications: Cyclobenzaprine [Flexeril] 10 mg PO BID 01/12/16 [History] Gabapentin [Neurontin] 600 mg PO TID 01/12/16 [History] Albuterol Neb [Proventil Neb] 3 ml IH Q4-6H PRN 05/29/16 [History] Furosemide [Lasix] 80 mg PO QAM PRN 02/07/17 [History] Potassium Chloride [K-Tab ER] 20 meq PO BID PRN 02/07/17 [History] Hydrocodone/Acetaminophen [[place] 5-325 Tablet] 1 tab PO Q6H PRN 07/28/18 [History] Magnesium Oxide [Magnesium] 250 mg PO DAILY 07/28/18 [History] Atorvastatin [Lipitor] 20 mg PO HS #30 tablet 07/31/18 [Rx] Metoprolol XL (24 HR) Succ [Toprol Xl] 25 mg PO DAILY #30 tab.er.24h 07/31/18 [Rx] Aspirin [Adult Aspirin] 81 mg PO DAILY 08/10/18 [History] Albuterol Sulfate [Proair Hfa] 2 puff IH Q4H PRN 08/11/18 [History] Allergies/Adverse Reactions: Allergy/AdvReac Type Severity Reaction Status Date / Time Penicillins Allergy Severe See Verified 07/27/18 16:50 Comments Sulfa (Sulfonamide Allergy Nausea Verified 07/27/18 16:50 Antibiotics) ibuprofen AdvReac See Verified 07/27/18 16:50 Comments mirtazapine [From Remeron] AdvReac Seizure Verified 07/27/18 16:50 Date of admission: 08/10/18 21:41 Primary care physician: Nicolette Renteria CNP Consults: 08/10/18 21:02 Consult to Cardiology [CONS] Stat Comment: Consulting Provider: Cardiology Sandy Reason for Consult: LVOT Time Notified: 21:05 Call Completed: Yes 08/11/18 15:38 Consult to Nurse Navigator [CONS] Routine Comment: COPD, CHF - Constitutional Vitals: Temp Pulse Resp BP Pulse Ox 97.9 F 88 18 129/73 96 08/12/18 07:43 08/12/18 07:43 08/12/18 07:49 08/12/18 07:43 08/12/18 09:28 General appearance: Present: A&O X 3, no acute distress, answers questions appropriately Exam: a - Head Head exam: Present: atraumatic, normal inspection - Neck Neck exam general surgery: Present: supple - Respiratory Respiratory exam: Present: decreased breath sounds, wheezes. Absent: rales, respiratory distress, rhonchi - Cardiovascular Cardiovascular exam: Present: RRR, +S1, +S2. Absent: tachycardia - GI/Abdominal GI/Abdominal exam: Present: normal bowel sounds, soft. Absent: rebound, rigid, tenderness - Extremities Exam Extremities exam: Absent: calf tenderness, pedal edema, tenderness - Back Exam Back exam: Absent: CVA tenderness (L), CVA tenderness (R) - Neurological Exam Neurological exam: Present: alert, oriented X3 - Psychiatric Psychiatric exam: Present: normal affect, normal mood - Skin Skin exam: Absent: rash - Patient Status Disposition: Home, Self-Care Condition: Good Overall status at discharge: patient is back to baseline - Discharge Instructions Follow Up With: Kameron Reich CNP [Advanced Practice Nurse] - 08/21/18 2:30 pm Renteria,Nicolette L, [employer] [Primary Care Provider] - 08/18/18 1:00 pm () - Diet and Activity Activity: increase activity as tolerated, wear oxygen at all times Diet: low salt diet
== END 2018-08-12 12:40 | disposition home or self-care (01) ==
LOC: 3BNU 18:20 → EMEROOARM 18:20 → SUATTDRO 21:41 → 3BNU 22:19
PROVIDERS: ADMIT Internal Medicine; ATTEND Family Medicine

== ENCOUNTER 2019-03-02 15:15 | Inpatient (IN) ==
[2019-03-02] MEDS ORDERED: 0.9 % Sodium Chloride 1,000 ML IVC ONE ×2 (16:10→17:01)
[2019-03-02] MEDS ORDERED: Ipratropium/Albuterol Neb 3 ML IH ONE (16:23)
[2019-03-02] MEDS ORDERED: Aspirin 81 MG TAB.CHEW PO ONE (16:23)
[2019-03-02] MEDS ORDERED: methylPREDNISolone 125 MG/2 ML VIAL IVP ONE (16:24)
[2019-03-02 16:53] LABS: Basophils % 0.1 %; Hematocrit 46.2 % (35.3-44.9); Hemoglobin 16.2 g/dL (11.5-15.4); Immature Granulocytes % 0.5 % (0-4); Lymphocytes # 0.6 K/mcL (0.6-4.6); Lymphocytes % 5.8 %; Mean Corpuscular HGB Conc 35.1 g/dL (31.6-35.5); Mean Corpuscular Hemoglobin 32.2 pg (28.0-33.3); Mean Corpuscular Volume 91.8 fL (83.0-100.0); Mean Platelet Volume 12.6 fL (9.4-12.4); Monocytes # 0.5 K/mcL (0.0-1.3); Monocytes % 4.4 %; Neutrophils # 9.5 K/mcL (1.6-8.9); Platelet Count 105 K/mcL (140-400); Red Blood Count 5.03 M/mcL (3.82-4.97); Red Cell Distribution Width 14.4 % (11.5-14.5); Segmented Neutrophils % 89.2 %; White Blood Count 10.6 K/mcL (4.3-11.1)
[2019-03-02 17:14] LABS: Magnesium 1.7 mg/dL (1.6-2.6)
[2019-03-02 17:15] LABS: BUN/Creatinine Ratio 14 (6-26); Blood Urea Nitrogen 14 mg/dL (6-20); Calcium 10.1 mg/dL (8.6-10.3); Carbon Dioxide 23 mEq/L (23-29); Chloride 104 mEq/L (98-107); Glucose 264 mg/dL (70-105); Osmolality,Calculated 296 (280-300); Potassium 4.2 mEq/L (3.5-5.1); Sodium 138 mEq/L (136-145); eGFR For African Americans > 60 (> 60); eGFR For Non-African Americans 56 (> 60)
[2019-03-02 17:16] LABS: Troponin I < 0.03 ng/mL (< 0.04)
[2019-03-02 17:28] LABS: Thyroid Stimulating Hormone 0.024 mcIU/mL (0.340-5.600)
[2019-03-02] MEDS: Nitroglycerin 0.4 MG TAB.SUBL SL SCH ×2 (18:00→19:19)
[2019-03-02] MEDS ORDERED: *HR* LORazepam 2 MG/ML VIAL IVP ONE (18:26)
[2019-03-02] MEDS ORDERED: Furosemide 40 MG TABLET PO PRN (20:23)
[2019-03-02] MEDS ORDERED: GuaiFENesin Liq 200 MG/10 ML UDC PO PRN (20:24)
[2019-03-02] MEDS ORDERED: ALPRAZolam 0.5 MG TABLET PO ONE (20:25)
[2019-03-02] MEDS ORDERED: Ringers Solution, Lactated 1,000 ML IVC SCH (21:30)
[2019-03-02] MEDS: Budesonide/Formoterol 80/4.5 1 PUFF INH IH SCH (21:53)
[2019-03-02] MEDS: Levalbuterol Neb 1.25 MG/3 ML IH SCH (21:53)
[2019-03-02] MEDS: Ipratropium Neb 0.5 MG NEBULIZER IH SCH (21:53)
[2019-03-02] MEDS: *HR* Heparin 5,000 UNIT/ML VIAL SQ SCH (22:34)
[2019-03-02] MEDS: Gabapentin 300 MG CAPSULE PO PRN (22:56)
[2019-03-03] MEDS: Ondansetron 4 MG/2 ML VIAL IVP PRN ×2 (00:17→06:33)
[2019-03-03 02:46] LABS: VBG HCO3 16 mEq/L (21-27); VBG PCO2 21 mmHg (41-51); VBG PH 7.49 pH Units (7.32-7.42); VBG PO2 141 mmHg (25-50)
[2019-03-03] MEDS: Levalbuterol Neb 1.25 MG/3 ML IH SCH ×2 (03:51→10:41)
[2019-03-03] MEDS: Ipratropium Neb 0.5 MG NEBULIZER IH SCH ×2 (03:51→10:40)
[2019-03-03 04:30] LABS: Troponin I < 0.03 ng/mL (< 0.04)
[2019-03-03 04:46] LABS: Triiodothyronine (T3) Free 3.24 pg/mL (2.50-3.90)
[2019-03-03 04:50] LABS: Triiodothyronine (T3) Total 1.08 ng/mL (0.87-1.78)
[2019-03-03] MEDS: *HR* Heparin 5,000 UNIT/ML VIAL SQ SCH ×3 (06:18→21:30)
[2019-03-03] MEDS ORDERED: Metoprolol XL (24 HR) Succ 25 MG TAB.ER.24H PO SCH (09:00)
[2019-03-03] MEDS: Aspirin Enteric Coated 81 MG Tablet PO SCH (09:26)
[2019-03-03] MEDS: Magnesium Oxide 400 MG TABLET PO SCH (09:26)
[2019-03-03] MEDS: MethylPREDNISolone 40 MG/ML VIAL IVP SCH ×2 (09:27→16:09)
[2019-03-03 10:19] LABS: Mean Corpuscular HGB Conc 33.9 g/dL (31.6-35.5); Red Cell Distribution Width 14.6 % (11.5-14.5)
[2019-03-03 10:21] LABS: Hemoglobin 14.9 g/dL (11.5-15.4); Immature Platelets 10.4 % (1.1-6.1); Mean Corpuscular Hemoglobin 32.2 pg (28.0-33.3); Mean Platelet Volume 12.3 fL (9.4-12.4); Red Blood Count 4.63 M/mcL (3.82-4.97); White Blood Count 17.7 K/mcL (4.3-11.1)
[2019-03-03 10:32] LABS: BUN/Creatinine Ratio 16 (6-26); Blood Urea Nitrogen 13 mg/dL (6-20); Calcium 9.2 mg/dL (8.6-10.3); Carbon Dioxide 23 mEq/L (23-29); Chloride 103 mEq/L (98-107); Glucose 390 mg/dL (70-105); Osmolality,Calculated 298 (280-300); Potassium 4.5 mEq/L (3.5-5.1); Sodium 136 mEq/L (136-145); eGFR For African Americans > 60 (> 60); eGFR For Non-African Americans > 60 (> 60)
[2019-03-03] MEDS: Budesonide/Formoterol 80/4.5 1 PUFF INH IH SCH ×2 (10:41→19:44)
[2019-03-03 11:44] LABS: Adenovirus Not Detected (Not Detect); Bordetella Pertussis Not Detected (Not Detect); Chlamydophila pneumoniae Not Detected (Not Detect); Coronavirus 229E Not Detected (Not Detect); Coronavirus HKU1 Not Detected (Not Detect); Coronavirus NL63 Not Detected (Not Detect); Coronavirus OC43 Not Detected (Not Detect); Human Metapneumovirus Not Detected (Not Detect); Human Rhinovirus/Enterovirus Not Detected (Not Detect); Influenza A Subtype 2009 H1 Not Detected (Not Detect); Influenza A Untypeable Not Detected (Not Detect); Influenza B Not Detected (Not Detect); Mycoplasma pneumoniae Not Detected (Not Detect); Parainfluenza Virus 1 Not Detected (Not Detect); Parainfluenza Virus 2 Not Detected (Not Detect); Parainfluenza Virus 3 Not Detected (Not Detect); Parainfluenza Virus 4 Not Detected (Not Detect); Respiratory Syncytial Virus Not Detected (Not Detect)
[2019-03-03] MEDS ORDERED: Furosemide 40 MG/4 ML VIAL IVP ONE (11:58)
[2019-03-03] MEDS ORDERED: Ipratropium/Albuterol Neb 3 ML IH SCH ×2 (12:00)
[2019-03-03] MEDS: levoFLOXacin 750 MG/150 ML 750 MG/150 ML BAG IVPB SCH (12:43)
[2019-03-03] MEDS: Ipratropium/Albuterol Neb 3 ML IH SCH ×3 (16:25→23:55)
[2019-03-03] MEDS: Acetaminophen 325 MG TABLET PO PRN (17:39)
[2019-03-03] MEDS: Gabapentin 300 MG CAPSULE PO PRN (21:30)
[2019-03-04] MEDS: MethylPREDNISolone 40 MG/ML VIAL IVP SCH ×3 (01:04→20:52)
[2019-03-04 01:31] LABS: Hematocrit 45.5 % (35.3-44.9); Hemoglobin 15.6 g/dL (11.5-15.4); Mean Corpuscular HGB Conc 34.3 g/dL (31.6-35.5); Mean Corpuscular Hemoglobin 32.5 pg (28.0-33.3); Mean Corpuscular Volume 94.8 fL (83.0-100.0); Mean Platelet Volume 13.2 fL (9.4-12.4); Red Cell Distribution Width 14.6 % (11.5-14.5); White Blood Count 16.1 K/mcL (4.3-11.1)
[2019-03-04 01:33] LABS: Platelet Count 75 K/mcL (140-400)
[2019-03-04 01:48] LABS: BUN/Creatinine Ratio 20 (6-26); Blood Urea Nitrogen 17 mg/dL (6-20); Calcium 9.8 mg/dL (8.6-10.3); Carbon Dioxide 28 mEq/L (23-29); Chloride 99 mEq/L (98-107); Glucose 454 mg/dL (70-105); Osmolality,Calculated 301 (280-300); Potassium 4.9 mEq/L (3.5-5.1); Sodium 135 mEq/L (136-145); eGFR For African Americans > 60 (> 60); eGFR For Non-African Americans > 60 (> 60)
[2019-03-04] MEDS: Ipratropium/Albuterol Neb 3 ML IH SCH ×2 (03:54→07:28)
[2019-03-04] MEDS: *HR* Heparin 5,000 UNIT/ML VIAL SQ SCH ×3 (05:19→20:51)
[2019-03-04 05:49] LABS: Bilirubin,Urine Negative (Negative); Blood,Urine Negative (Negative); Clarity,Urine Clear (Clear); Color,Urine Yellow (Yellow); Glucose,Urine (UA) >=1000 mg/dL (Normal); Ketones,Urine Negative (Negative); Leukocyte Esterase,Urine Negative (Negative); Nitrite,Urine Negative (Negative); PH,Urine 6.5 pH Units (5.0-8.0); Protein,Urine Negative (Neg-Trace); Specific Gravity,Urine > 1.030 (1.010-1.025); Urobilinogen,Urine Normal (Normal)
[2019-03-04] MEDS: Budesonide/Formoterol 80/4.5 1 PUFF INH IH SCH ×2 (07:28→22:05)
[2019-03-04] MEDS ORDERED: Dextrose Gel 15 GM/37.5 ML TUBE PO PRN ×2 (07:55)
[2019-03-04] MEDS ORDERED: D5% in Water 1,000 ML IVC PRN (07:55)
[2019-03-04] MEDS ORDERED: *HR* Dextrose 50 % in Water (Syg) 50 ML SYRINGE IVP PRN (07:55)
[2019-03-04] MEDS: Aspirin Enteric Coated 81 MG Tablet PO SCH (08:27)
[2019-03-04] MEDS: Metoprolol XL (24 HR) Succ 25 MG TAB.ER.24H PO SCH (08:29)
[2019-03-04] MEDS: Magnesium Oxide 400 MG TABLET PO SCH (08:29)
[2019-03-04] MEDS: levoFLOXacin 750 MG/150 ML 750 MG/150 ML BAG IVPB SCH (08:30)
[2019-03-04] MEDS: Levalbuterol Neb 1.25 MG/3 ML IH SCH ×3 (10:54→22:05)
[2019-03-04] MEDS: Insulin LISPRO 300 UNITS/3 ML VIAL SQ SCH ×2 (12:17→17:55)
[2019-03-04] MEDS ORDERED: 0.9 % Sodium Chloride 1,000 ML IVC SCH (12:30)
[2019-03-04] MEDS ORDERED: Metoprolol XL (24 HR) Succ 25 MG TAB.ER.24H PO ONE (15:59)
[2019-03-04] MEDS: Gabapentin 300 MG CAPSULE PO PRN (17:59)
[2019-03-04] MEDS ORDERED: Insulin DETEMIR 100 UNIT/ML X5UNITS SQ SCH (21:00)
[2019-03-05] MEDS: Levalbuterol Neb 1.25 MG/3 ML IH SCH ×4 (04:34→22:23)
[2019-03-05] MEDS: *HR* Heparin 5,000 UNIT/ML VIAL SQ SCH ×3 (05:51→20:51)
[2019-03-05 06:04] LABS: Hematocrit 44.2 % (35.3-44.9); Mean Corpuscular Volume 95.1 fL (83.0-100.0); Red Blood Count 4.65 M/mcL (3.82-4.97)
[2019-03-05 06:05] LABS: Hemoglobin 14.9 g/dL (11.5-15.4); Immature Platelets 12.5 % (1.1-6.1); Mean Corpuscular HGB Conc 33.7 g/dL (31.6-35.5); Mean Platelet Volume 12.3 fL (9.4-12.4); Red Cell Distribution Width 14.7 % (11.5-14.5)
[2019-03-05 06:06] LABS: VBG HCO3 31 mEq/L (21-27); VBG PCO2 60 mmHg (41-51); VBG PH 7.33 pH Units (7.32-7.42); VBG PO2 48 mmHg (25-50)
[2019-03-05 06:31] LABS: BUN/Creatinine Ratio 20 (6-26); Blood Urea Nitrogen 16 mg/dL (6-20); Calcium 9.5 mg/dL (8.6-10.3); Carbon Dioxide 32 mEq/L (23-29); Chloride 102 mEq/L (98-107); Glucose 190 mg/dL (70-105); Osmolality,Calculated 294 (280-300); Potassium 4.4 mEq/L (3.5-5.1); Sodium 139 mEq/L (136-145); eGFR For African Americans > 60 (> 60); eGFR For Non-African Americans > 60 (> 60)
[2019-03-05] MEDS: Magnesium Oxide 400 MG TABLET PO SCH (08:29)
[2019-03-05] MEDS: Aspirin Enteric Coated 81 MG Tablet PO SCH (08:29)
[2019-03-05] MEDS: Gabapentin 300 MG CAPSULE PO PRN (08:29)
[2019-03-05] MEDS: MethylPREDNISolone 40 MG/ML VIAL IVP SCH (08:30)
[2019-03-05] MEDS: Metoprolol XL (24 HR) Succ 25 MG TAB.ER.24H PO SCH (08:30)
[2019-03-05] MEDS: levoFLOXacin 750 MG/150 ML 750 MG/150 ML BAG IVPB SCH (08:36)
[2019-03-05] MEDS: Insulin LISPRO 300 UNITS/3 ML VIAL SQ SCH ×3 (08:36→17:57)
[2019-03-05 09:18] LABS: Estimated Average Glucose 131 mg/dl
[2019-03-05] MEDS: Budesonide/Formoterol 80/4.5 1 PUFF INH IH SCH ×2 (10:59→22:22)
[2019-03-05] MEDS: Acetaminophen 325 MG TABLET PO PRN (20:51)
[2019-03-06] MEDS: Levalbuterol Neb 1.25 MG/3 ML IH SCH ×2 (04:38→22:48)
[2019-03-06] MEDS: *HR* Heparin 5,000 UNIT/ML VIAL SQ SCH ×3 (05:12→21:18)
[2019-03-06] MEDS: Aspirin Enteric Coated 81 MG Tablet PO SCH (09:10)
[2019-03-06] MEDS: levoFLOXacin 750 MG/150 ML 750 MG/150 ML BAG IVPB SCH (09:10)
[2019-03-06] MEDS: Metoprolol XL (24 HR) Succ 25 MG TAB.ER.24H PO SCH (09:10)
[2019-03-06] MEDS: MethylPREDNISolone 40 MG/ML VIAL IVP SCH (09:11)
[2019-03-06] MEDS: Magnesium Oxide 400 MG TABLET PO SCH (09:11)
[2019-03-06] MEDS: Insulin LISPRO 300 UNITS/3 ML VIAL SQ SCH ×3 (09:11→16:48)
[2019-03-06] MEDS: Budesonide/Formoterol 80/4.5 1 PUFF INH IH SCH ×2 (10:12→22:47)
[2019-03-06] MEDS ORDERED: Milk and Molasses Enema 200 ML RC ONE (20:11)
[2019-03-06] MEDS: Insulin DETEMIR 100 UNIT/ML X5UNITS SQ SCH (21:18)
[2019-03-07] MEDS: *HR* Heparin 5,000 UNIT/ML VIAL SQ SCH ×3 (04:15→20:41)
[2019-03-07] MEDS: Levalbuterol Neb 1.25 MG/3 ML IH SCH ×4 (04:33→22:54)
[2019-03-07] MEDS: Magnesium Oxide 400 MG TABLET PO SCH (09:00)
[2019-03-07] MEDS: Insulin LISPRO 300 UNITS/3 ML VIAL SQ SCH ×3 (09:00→17:12)
[2019-03-07] MEDS: Aspirin Enteric Coated 81 MG Tablet PO SCH (09:00)
[2019-03-07] MEDS: MethylPREDNISolone 40 MG/ML VIAL IVP SCH (09:00)
[2019-03-07] MEDS: Metoprolol XL (24 HR) Succ 25 MG TAB.ER.24H PO SCH (09:00)
[2019-03-07] MEDS: Budesonide/Formoterol 80/4.5 1 PUFF INH IH SCH ×2 (10:05→22:54)
[2019-03-07] MEDS: Furosemide 20 MG/2 ML VIAL IVP SCH (13:07)
[2019-03-07] MEDS: Insulin DETEMIR 100 UNIT/ML X5UNITS SQ SCH (20:41)
[2019-03-08] MEDS: Levalbuterol Neb 1.25 MG/3 ML IH SCH ×4 (05:00→22:01)
[2019-03-08] MEDS: *HR* Heparin 5,000 UNIT/ML VIAL SQ SCH ×3 (06:52→20:33)
[2019-03-08 07:10] LABS: Mean Corpuscular Volume 93.4 fL (83.0-100.0)
[2019-03-08 07:12] LABS: Hematocrit 42.7 % (35.3-44.9); Hemoglobin 14.7 g/dL (11.5-15.4); Immature Platelets 13.7 % (1.1-6.1); Mean Corpuscular HGB Conc 34.4 g/dL (31.6-35.5); Mean Corpuscular Hemoglobin 32.2 pg (28.0-33.3); Red Blood Count 4.57 M/mcL (3.82-4.97); Red Cell Distribution Width 14.6 % (11.5-14.5)
[2019-03-08 07:26] LABS: Alanine Aminotransferase 24 Units/L (7-52); Albumin 2.9 g/dL (3.5-5.7); Alkaline Phosphatase 81 Units/L (34-104); Aspartate Amino Transferase 25 Units/L (13-39); BUN/Creatinine Ratio 32 (6-26); Bilirubin,Total 0.8 mg/dL (0.3-1.0); Blood Urea Nitrogen 21 mg/dL (6-20); Carbon Dioxide 32 mEq/L (23-29); Chloride 100 mEq/L (98-107); Globulin 2.8 g/dL (2.4-3.5); Glucose 97 mg/dL (70-105); Osmolality,Calculated 289 (280-300); Potassium 3.9 mEq/L (3.5-5.1); Sodium 138 mEq/L (136-145); Total Protein 5.7 g/dL (6.4-8.9); eGFR For African Americans > 60 (> 60); eGFR For Non-African Americans > 60 (> 60)
[2019-03-08] MEDS: Insulin LISPRO 300 UNITS/3 ML VIAL SQ SCH ×3 (09:19→17:02)
[2019-03-08] MEDS: Metoprolol XL (24 HR) Succ 25 MG TAB.ER.24H PO SCH (10:03)
[2019-03-08] MEDS: Aspirin Enteric Coated 81 MG Tablet PO SCH (10:04)
[2019-03-08] MEDS: Magnesium Oxide 400 MG TABLET PO SCH (10:04)
[2019-03-08] MEDS: Furosemide 20 MG/2 ML VIAL IVP SCH (10:04)
[2019-03-08] MEDS: Budesonide/Formoterol 80/4.5 1 PUFF INH IH SCH ×2 (10:43→22:01)
[2019-03-08] MEDS ORDERED: Perflutren Lipid Microsphere 1.3 ML in 0.9 % Sodium Chloride 8.7 ML IVP ONE (11:39)
[2019-03-08] MEDS: MethylPREDNISolone 40 MG/ML VIAL IVP SCH ×2 (16:01→22:56)
[2019-03-08] MEDS: Insulin DETEMIR 100 UNIT/ML X5UNITS SQ SCH (20:34)
[2019-03-09] MEDS: Levalbuterol Neb 1.25 MG/3 ML IH SCH (03:47)
[2019-03-09] MEDS: *HR* Heparin 5,000 UNIT/ML VIAL SQ SCH (06:20)
[2019-03-09 06:25] LABS: Hemoglobin 15.4 g/dL (11.5-15.4); Mean Platelet Volume 13.6 fL (9.4-12.4)
[2019-03-09 06:26] LABS: Hematocrit 45.6 % (35.3-44.9); Immature Platelets 19.2 % (1.1-6.1); Mean Corpuscular HGB Conc 33.8 g/dL (31.6-35.5); Mean Corpuscular Volume 94.6 fL (83.0-100.0); Red Blood Count 4.82 M/mcL (3.82-4.97); Red Cell Distribution Width 14.5 % (11.5-14.5); White Blood Count 9.7 K/mcL (4.3-11.1)
[2019-03-09 06:50] LABS: Alanine Aminotransferase 30 Units/L (7-52); Albumin 3.2 g/dL (3.5-5.7); Alkaline Phosphatase 95 Units/L (34-104); Aspartate Amino Transferase 30 Units/L (13-39); BUN/Creatinine Ratio 28 (6-26); Blood Urea Nitrogen 23 mg/dL (6-20); Calcium 9.3 mg/dL (8.6-10.3); Carbon Dioxide 28 mEq/L (23-29); Chloride 94 mEq/L (98-107); Globulin 3.1 g/dL (2.4-3.5); Glucose 296 mg/dL (70-105); Osmolality,Calculated 293 (280-300); Potassium 4.2 mEq/L (3.5-5.1); Sodium 134 mEq/L (136-145); Total Protein 6.3 g/dL (6.4-8.9); eGFR For African Americans > 60 (> 60); eGFR For Non-African Americans > 60 (> 60)
[2019-03-09 08:16] VITALS: BP 155/61
[2019-03-09] MEDS: Metoprolol XL (24 HR) Succ 25 MG TAB.ER.24H PO SCH (09:09)
[2019-03-09] MEDS: Aspirin Enteric Coated 81 MG Tablet PO SCH (09:09)
[2019-03-09] MEDS: Magnesium Oxide 400 MG TABLET PO SCH (09:09)
[2019-03-09] MEDS: Furosemide 20 MG/2 ML VIAL IVP SCH (09:10)
[2019-03-09] MEDS: MethylPREDNISolone 40 MG/ML VIAL IVP SCH (09:10)
== END 2019-03-09 10:10 | disposition home or self-care (01) | DRG 191 ==
LOC: 3BNU 15:15 → EMEROOARM 15:15 → SUATTDRO 19:52 → 3BNU 21:29 → SUATTDRO 03-03 12:18
PROVIDERS: ADMIT Internal Medicine; ATTEND Internal Medicine

== ENCOUNTER 2019-03-13 12:00 | Inpatient (IN) ==
[2019-03-13] MEDS ORDERED: Ipratropium/Albuterol Neb 3 ML IH ONE (12:33)
[2019-03-13 13:10] LABS: Basophils # 0.1 K/mcL (0.0-0.2); Basophils % 0.4 %; Eosinophils # 0.2 K/mcL (0.0-0.6); Eosinophils % 1.2 %; Hematocrit 43.4 % (35.3-44.9); Hemoglobin 14.1 g/dL (11.5-15.4); Immature Granulocytes % 1.2 % (0-4); Lymphocytes % 14.2 %; Mean Corpuscular HGB Conc 32.5 g/dL (31.6-35.5); Mean Corpuscular Hemoglobin 32.4 pg (28.0-33.3); Mean Corpuscular Volume 99.8 fL (83.0-100.0); Mean Platelet Volume 13.1 fL (9.4-12.4); Monocytes # 1.4 K/mcL (0.0-1.3); Monocytes % 10.1 %; Red Blood Count 4.35 M/mcL (3.82-4.97); Red Cell Distribution Width 14.7 % (11.5-14.5); Segmented Neutrophils % 72.9 %; White Blood Count 13.7 K/mcL (4.3-11.1)
[2019-03-13 13:23] LABS: Platelet Count 60 K/mcL (140-400)
[2019-03-13] MEDS ORDERED: predniSONE 20 MG TABLET PO ONE (13:51)
[2019-03-13] MEDS ORDERED: Cefepime HCl 1,000 MG in Water for inj. (sterile) 10 ML IVP STA (13:52)
[2019-03-13] MEDS ORDERED: Azithromycin 500 MG in 0.9 % Sodium Chloride 250 ML IVPB ONE (13:56)
[2019-03-13 15:01] LABS: BUN/Creatinine Ratio 19 (6-26); Blood Urea Nitrogen 14 mg/dL (6-20); Calcium 9.4 mg/dL (8.6-10.3); Carbon Dioxide 29 mEq/L (23-29); Chloride 100 mEq/L (98-107); Glucose 140 mg/dL (70-105); Osmolality,Calculated 289 (280-300); Potassium 3.6 mEq/L (3.5-5.1); Sodium 138 mEq/L (136-145); eGFR For African Americans > 60 (> 60); eGFR For Non-African Americans > 60 (> 60)
[2019-03-13] MEDS: Furosemide 40 MG/4 ML VIAL IVP SCH ×2 (17:14→21:13)
[2019-03-13] MEDS: Nystatin SUSP 5 ML UD.LIQ PO SCH ×2 (17:14→21:13)
[2019-03-13] MEDS: Metoprolol XL (24 HR) Succ 25 MG TAB.ER.24H PO SCH (17:15)
[2019-03-13 18:35] LABS: Adenovirus Not Detected (Not Detect); Bordetella Pertussis Not Detected (Not Detect); Chlamydophila pneumoniae Not Detected (Not Detect); Coronavirus 229E Not Detected (Not Detect); Coronavirus HKU1 Not Detected (Not Detect); Coronavirus NL63 Not Detected (Not Detect); Coronavirus OC43 Not Detected (Not Detect); Human Metapneumovirus Not Detected (Not Detect); Human Rhinovirus/Enterovirus Not Detected (Not Detect); Influenza A Subtype 2009 H1 Not Detected (Not Detect); Influenza A Untypeable Not Detected (Not Detect); Influenza B Not Detected (Not Detect); Mycoplasma pneumoniae Not Detected (Not Detect); Parainfluenza Virus 1 Not Detected (Not Detect); Parainfluenza Virus 2 Not Detected (Not Detect); Parainfluenza Virus 3 Not Detected (Not Detect); Parainfluenza Virus 4 Not Detected (Not Detect); Respiratory Syncytial Virus Not Detected (Not Detect)
[2019-03-13] MEDS ORDERED: Acetaminophen 325 MG TABLET PO ONE (21:09)
[2019-03-13] MEDS: Gabapentin 300 MG CAPSULE PO PRN (21:12)
[2019-03-13] MEDS: Budesonide/Formoterol 80/4.5 1 PUFF INH IH SCH (22:42)
[2019-03-14] MEDS: Albuterol 2.5 MG/3 ML NEBULIZER IH PRN ×2 (00:10→16:01)
[2019-03-14 02:38] LABS: Eosinophils % 0.1 %
[2019-03-14 02:40] LABS: Basophils % 0.3 %; Hemoglobin 15.4 g/dL (11.5-15.4); Immature Granulocytes % 1.2 % (0-4); Immature Platelets 20.2 % (1.1-6.1); Lymphocytes # 0.8 K/mcL (0.6-4.6); Mean Corpuscular HGB Conc 33.5 g/dL (31.6-35.5); Mean Corpuscular Hemoglobin 32.2 pg (28.0-33.3); Mean Corpuscular Volume 96.2 fL (83.0-100.0); Mean Platelet Volume 14.1 fL (9.4-12.4); Monocytes # 1.1 K/mcL (0.0-1.3); Monocytes % 7.1 %; Red Blood Count 4.78 M/mcL (3.82-4.97); Red Cell Distribution Width 14.8 % (11.5-14.5); Segmented Neutrophils % 86.3 %
[2019-03-14 02:44] LABS: Basophils # 0.1 K/mcL (0.0-0.2); Platelet Count 63 K/mcL (140-400)
[2019-03-14 02:59] LABS: BUN/Creatinine Ratio 22 (6-26); Blood Urea Nitrogen 18 mg/dL (6-20); Calcium 9.6 mg/dL (8.6-10.3); Carbon Dioxide 29 mEq/L (23-29); Chloride 96 mEq/L (98-107); Glucose 156 mg/dL (70-105); Osmolality,Calculated 287 (280-300); Sodium 136 mEq/L (136-145); eGFR For African Americans > 60 (> 60); eGFR For Non-African Americans > 60 (> 60)
[2019-03-14] MEDS: Budesonide/Formoterol 80/4.5 1 PUFF INH IH SCH ×2 (07:34→20:54)
[2019-03-14] MEDS ORDERED: Metoprolol XL (24 HR) Succ 25 MG TAB.ER.24H PO SCH (09:00)
[2019-03-14] MEDS: Gabapentin 300 MG CAPSULE PO PRN ×3 (09:26→21:17)
[2019-03-14] MEDS: Nystatin SUSP 5 ML UD.LIQ PO SCH ×4 (09:26→21:16)
[2019-03-14] MEDS: Metoprolol XL (24 HR) Succ 25 MG TAB.ER.24H PO SCH (09:26)
[2019-03-14] MEDS: Aspirin Enteric Coated 81 MG Tablet PO SCH (09:26)
[2019-03-14] MEDS: Magnesium Oxide 400 MG TABLET PO SCH (09:26)
[2019-03-14] MEDS: Furosemide 40 MG/4 ML VIAL IVP SCH ×2 (09:27→18:00)
[2019-03-14] MEDS: Fluconazole 100 MG TABLET PO SCH (09:36)
[2019-03-15] MEDS: Budesonide/Formoterol 80/4.5 1 PUFF INH IH SCH ×2 (07:42→20:19)
[2019-03-15] MEDS ORDERED: Ondansetron 4 MG/2 ML VIAL IVP PRN (09:35)
[2019-03-15 10:37] LABS: Basophils % 0.4 %
[2019-03-15 10:39] LABS: Basophils # 0.1 K/mcL (0.0-0.2); Eosinophils # 0.3 K/mcL (0.0-0.6); Eosinophils % 2.2 %; Hematocrit 44.4 % (35.3-44.9); Hemoglobin 14.7 g/dL (11.5-15.4); Immature Platelets 18.7 % (1.1-6.1); Lymphocytes # 2.3 K/mcL (0.6-4.6); Lymphocytes % 17.3 %; Mean Corpuscular HGB Conc 33.1 g/dL (31.6-35.5); Mean Corpuscular Hemoglobin 32.2 pg (28.0-33.3); Mean Corpuscular Volume 97.4 fL (83.0-100.0); Mean Platelet Volume 12.9 fL (9.4-12.4); Monocytes # 1.5 K/mcL (0.0-1.3); Monocytes % 11.3 %; Neutrophils # 9.1 K/mcL (1.6-8.9); Red Blood Count 4.56 M/mcL (3.82-4.97); Segmented Neutrophils % 67.8 %; White Blood Count 13.4 K/mcL (4.3-11.1)
[2019-03-15 10:40] LABS: Platelet Count 63 K/mcL (140-400)
[2019-03-15 10:45] LABS: BUN/Creatinine Ratio 20 (6-26); Blood Urea Nitrogen 18 mg/dL (6-20); Calcium 9.3 mg/dL (8.6-10.3); Carbon Dioxide 36 mEq/L (23-29); Chloride 97 mEq/L (98-107); Glucose 105 mg/dL (70-105); Osmolality,Calculated 288 (280-300); Potassium 4.2 mEq/L (3.5-5.1); Sodium 138 mEq/L (136-145); eGFR For African Americans > 60 (> 60); eGFR For Non-African Americans > 60 (> 60)
[2019-03-15] MEDS: Aspirin Enteric Coated 81 MG Tablet PO SCH (11:00)
[2019-03-15] MEDS: Magnesium Oxide 400 MG TABLET PO SCH (11:01)
[2019-03-15] MEDS: Fluconazole 100 MG TABLET PO SCH (11:01)
[2019-03-15] MEDS: Metoprolol XL (24 HR) Succ 25 MG TAB.ER.24H PO SCH (11:01)
[2019-03-15] MEDS: Furosemide 40 MG/4 ML VIAL IVP SCH ×2 (11:04→18:21)
[2019-03-15] MEDS: Nystatin SUSP 5 ML UD.LIQ PO SCH ×4 (11:04→20:42)
[2019-03-16 06:32] LABS: Hematocrit 41.2 % (35.3-44.9); Hemoglobin 13.7 g/dL (11.5-15.4); Immature Platelets 17.7 % (1.1-6.1); Mean Corpuscular HGB Conc 33.3 g/dL (31.6-35.5); Mean Corpuscular Hemoglobin 31.9 pg (28.0-33.3); Mean Platelet Volume 13.7 fL (9.4-12.4); Red Blood Count 4.29 M/mcL (3.82-4.97); Red Cell Distribution Width 14.8 % (11.5-14.5); White Blood Count 9.9 K/mcL (4.3-11.1)
[2019-03-16 06:56] LABS: BUN/Creatinine Ratio 26 (6-26); Blood Urea Nitrogen 18 mg/dL (6-20); Calcium 8.9 mg/dL (8.6-10.3); Carbon Dioxide 32 mEq/L (23-29); Chloride 95 mEq/L (98-107); Glucose 216 mg/dL (70-105); Osmolality,Calculated 290 (280-300); Potassium 3.7 mEq/L (3.5-5.1); Sodium 136 mEq/L (136-145); eGFR For African Americans > 60 (> 60); eGFR For Non-African Americans > 60 (> 60)
[2019-03-16] MEDS: Budesonide/Formoterol 80/4.5 1 PUFF INH IH SCH (07:55)
[2019-03-16] MEDS: Magnesium Oxide 400 MG TABLET PO SCH (08:34)
[2019-03-16] MEDS: Fluconazole 100 MG TABLET PO SCH (08:35)
[2019-03-16] MEDS: Aspirin Enteric Coated 81 MG Tablet PO SCH (08:35)
[2019-03-16] MEDS: Metoprolol XL (24 HR) Succ 25 MG TAB.ER.24H PO SCH (08:35)
[2019-03-16] MEDS: Furosemide 40 MG/4 ML VIAL IVP SCH (08:36)
[2019-03-16] MEDS: Nystatin SUSP 5 ML UD.LIQ PO SCH (08:37)
[2019-03-16 11:47] VITALS: BP 124/77
== END 2019-03-16 12:57 | disposition home or self-care (01) | DRG 291 ==
LOC: 3BNU 12:00 → EMEROOARM 12:00 → SUATTDRO 15:39 → 3BNU 15:55
PROVIDERS: ADMIT Internal Medicine; ATTEND Internal Medicine

== ENCOUNTER 2019-05-16 07:29 | Inpatient (IN) ==
[2019-05-16] MEDS ORDERED: Isovue-370 500 ML BOTTLE IVP ONE (08:11)
[2019-05-16] MEDS ORDERED: *HR* FentaNYL (PF) 100 MCG/2 ML VIAL IVP ONE (08:13)
[2019-05-16] MEDS ORDERED: Ondansetron 4 MG/2 ML VIAL IVP ONE (08:17)
[2019-05-16 08:37] LABS: Eosinophils % 0.2 %
[2019-05-16 08:39] LABS: Basophils % 0.2 %; Hematocrit 49.3 % (35.3-44.9); Hemoglobin 16.4 g/dL (11.5-15.4); Immature Granulocytes % 0.7 % (0-4); Immature Platelets 8.4 % (1.1-6.1); Lymphocytes # 0.8 K/mcL (0.6-4.6); Lymphocytes % 4.4 %; Mean Corpuscular HGB Conc 33.3 g/dL (31.6-35.5); Mean Corpuscular Hemoglobin 31.6 pg (28.0-33.3); Mean Platelet Volume 12.3 fL (9.4-12.4); Monocytes # 0.4 K/mcL (0.0-1.3); Monocytes % 2.4 %; Neutrophils # 16.2 K/mcL (1.6-8.9); Red Blood Count 5.19 M/mcL (3.82-4.97); Segmented Neutrophils % 92.1 %; White Blood Count 17.6 K/mcL (4.3-11.1)
[2019-05-16] MEDS ORDERED: Ipratropium/Albuterol Neb 3 ML IH ONE (08:39)
[2019-05-16 08:45] LABS: Platelet Count 83 K/mcL (140-400)
[2019-05-16 09:06] LABS: BUN/Creatinine Ratio 14 (6-26); Blood Urea Nitrogen 11 mg/dL (6-20); Calcium 9.9 mg/dL (8.6-10.3); Carbon Dioxide 26 mEq/L (23-29); Chloride 102 mEq/L (98-107); Glucose 167 mg/dL (70-105); Osmolality,Calculated 291 (280-300); Potassium 4.1 mEq/L (3.5-5.1); Sodium 139 mEq/L (136-145); eGFR For African Americans > 60 (> 60); eGFR For Non-African Americans > 60 (> 60)
[2019-05-16 09:07] LABS: Troponin I < 0.03 ng/mL (< 0.04)
[2019-05-16] MEDS ORDERED: methylPREDNISolone 125 MG/2 ML VIAL IVP ONE (09:13)
[2019-05-16] MEDS ORDERED: Aminoglycoside Consult 1 EACH MC ONE (09:40)
[2019-05-16] MEDS ORDERED: *HR* LORazepam 2 MG/ML VIAL IVP ONE (09:43)
[2019-05-16] MEDS ORDERED: Cefepime HCl 2,000 MG in Water for inj. (sterile) 20 ML IVP ONE (10:43)
[2019-05-16] MEDS: 0.9 % Sodium Chloride 1,000 ML IVC SCH ×2 (11:04→12:00)
[2019-05-16] MEDS: Dexmedetomidine HCl 400 MCG/100 ML MLS IVC SCH ×2 (12:04→19:20)
[2019-05-16] MEDS ORDERED: Levalbuterol Neb 1.25 MG/3 ML ONE (12:51)
[2019-05-16 13:13] LABS: ABG Base Excess -6 mEq/L (-2 to 3); ABG HCO3 23 mEq/L (21-27); ABG Oxygen Saturation 96 % (95-98); ABG PCO2 57 mmHg (35-45); ABG PH 7.21 pH Units (7.32-7.45); ABG PO2 98 mmHg (85-104); ABG TCO2 25 mEq/L (20-26); Blood Gas Pressure Support 5 cm H2O
[2019-05-16] MEDS ORDERED: *HR* FentaNYL (PF) 1,000 MCG/20 ML VIAL ONE (14:22)
[2019-05-16] MEDS ORDERED: Naloxone 0.4 MG/ML INJ IVP PRN (14:23)
[2019-05-16] MEDS ORDERED: Acetaminophen 325 MG TABLET PO PRN (14:23)
[2019-05-16] MEDS ORDERED: 0.9 % Sodium Chloride 1,000 ML IVC ONE (14:23)
[2019-05-16] MEDS ORDERED: Artificial Tears SOLN 15 ML BOTTLE BOTH EYES PRN (14:23)
[2019-05-16] MEDS: FentaNYL (PF) 1,000 MCG in 0.9 % Sodium Chloride 80 ML IVC SCH (14:27)
[2019-05-16] MEDS ORDERED: Albuterol 2.5 MG/3 ML NEBULIZER IH PRN (14:38)
[2019-05-16] MEDS ORDERED: *HR* Midazolam HCl 5 MG/5 ML VIAL IVP ONE ×2 (14:44→14:46)
[2019-05-16] MEDS ORDERED: Vancomycin (wt based) 1,000 MG VIAL IVPB SCH (15:00)
[2019-05-16 15:28] LABS: Bilirubin,Urine Negative (Negative); Blood,Urine Negative (Negative); Clarity,Urine Clear (Clear); Color,Urine Yellow (Yellow); Glucose,Urine (UA) Normal (Normal); Ketones,Urine Negative (Negative); Leukocyte Esterase,Urine Negative (Negative); Nitrite,Urine Negative (Negative); Protein,Urine Trace mg/dL (Neg-Trace); Specific Gravity,Urine > 1.030 (1.010-1.025); Urobilinogen,Urine Normal (Normal)
[2019-05-16] MEDS: Norepinephrine 4 MG in 0.9 % Sodium Chloride 250 ML IVC SCH (16:11)
[2019-05-16] MEDS: Artificial Tears SOLN 15 ML BOTTLE BOTH EYES SCH ×3 (16:12→23:14)
[2019-05-16] MEDS: Ipratropium/Albuterol Neb 3 ML IH SCH ×3 (16:22→23:01)
[2019-05-16] MEDS: Azithromycin 500 MG in 0.9 % Sodium Chloride 250 ML IVPB SCH (16:25)
[2019-05-16 16:29] LABS: ABG Base Excess -7 mEq/L (-2 to 3); ABG HCO3 21 mEq/L (21-27); ABG Oxygen Saturation 94 % (95-98); ABG PCO2 53 mmHg (35-45); ABG PH 7.21 pH Units (7.32-7.45); ABG PO2 89 mmHg (85-104); ABG TCO2 23 mEq/L (20-26); Blood Gas Modality AF; Blood Gas VT 450 cc
[2019-05-16 16:39] LABS: INR 1.6; Prothrombin Time 18.1 Seconds (9.4-12.1)
[2019-05-16 16:55] LABS: Adenovirus Not Detected (Not Detect); Chlamydophila pneumoniae Not Detected (Not Detect); Coronavirus 229E Not Detected (Not Detect); Coronavirus HKU1 DETECTED (Not Detect); Coronavirus NL63 Not Detected (Not Detect); Coronavirus OC43 Not Detected (Not Detect); Human Metapneumovirus Not Detected (Not Detect); Human Rhinovirus/Enterovirus Not Detected (Not Detect); Influenza A Subtype 2009 H1 Not Detected (Not Detect); Influenza B Not Detected (Not Detect); Mycoplasma pneumoniae Not Detected (Not Detect); Parainfluenza Virus 1 Not Detected (Not Detect); Parainfluenza Virus 2 Not Detected (Not Detect); Parainfluenza Virus 3 Not Detected (Not Detect); Parainfluenza Virus 4 Not Detected (Not Detect); Respiratory Syncytial Virus Not Detected (Not Detect)
[2019-05-16 16:59] LABS: Bordetella Pertussis DETECTED (Not Detect)
[2019-05-16 17:04] LABS: Alanine Aminotransferase 25 Units/L (7-52); Albumin 2.5 g/dL (3.5-5.7); Albumin/Globulin Ratio 1.1 (1.1-2.2); Alkaline Phosphatase 50 Units/L (34-104); Aspartate Amino Transferase 22 Units/L (13-39); Bilirubin,Direct 0.6 mg/dL (0.0-0.2); Bilirubin,Indirect 1.2 mg/dL (0.0-1.0); Bilirubin,Total 1.8 mg/dL (0.3-1.0); Globulin 2.2 g/dL (2.4-3.5); Total Protein 4.7 g/dL (6.4-8.9)
[2019-05-16 17:11] LABS: Troponin I < 0.03 ng/mL (< 0.04)
[2019-05-16] MEDS: methylPREDNISolone 125 MG/2 ML VIAL IVP SCH (17:20)
[2019-05-16] MEDS ORDERED: Cefepime HCl 2,000 MG in 0.9 % Sodium Chloride Mini Bag 100 ML IVPB SCH (19:00)
[2019-05-16] MEDS: Chlorhexidine Rinse 15 ML MOUTHWASH MM SCH (19:50)
[2019-05-16 20:49] LABS: ABG Base Excess -7 mEq/L (-2 to 3); ABG HCO3 21 mEq/L (21-27); ABG Oxygen Saturation 93 % (95-98); ABG PCO2 49 mmHg (35-45); ABG PH 7.24 pH Units (7.32-7.45); ABG PO2 80 mmHg (85-104); ABG TCO2 23 mEq/L (20-26); Blood Gas Modality AF; Blood Gas VT 450 cc
[2019-05-17] MEDS: FentaNYL (PF) 1,000 MCG in 0.9 % Sodium Chloride 80 ML IVC SCH ×3 (00:57→18:32)
[2019-05-17] MEDS: Dexmedetomidine HCl 400 MCG/100 ML MLS IVC SCH ×5 (01:04→21:50)
[2019-05-17] MEDS: Cefepime HCl 2,000 MG in Water for inj. (sterile) 20 ML IVPB SCH ×3 (03:17→17:48)
[2019-05-17] MEDS: Artificial Tears SOLN 15 ML BOTTLE BOTH EYES SCH ×6 (03:17→23:48)
[2019-05-17 03:34] LABS: Mean Corpuscular Hemoglobin 31.7 pg (28.0-33.3)
[2019-05-17 03:36] LABS: Basophils % 0.3 %; Hematocrit 42.4 % (35.3-44.9); Hemoglobin 13.8 g/dL (11.5-15.4); Immature Granulocytes % 1.1 % (0-4); Immature Platelets 7.5 % (1.1-6.1); Lymphocytes # 0.4 K/mcL (0.6-4.6); Lymphocytes % 3.4 %; Mean Corpuscular HGB Conc 32.5 g/dL (31.6-35.5); Mean Corpuscular Volume 97.2 fL (83.0-100.0); Mean Platelet Volume 12.5 fL (9.4-12.4); Monocytes # 0.4 K/mcL (0.0-1.3); Monocytes % 3.7 %; Neutrophils # 10.4 K/mcL (1.6-8.9); Red Blood Count 4.36 M/mcL (3.82-4.97); Red Cell Distribution Width 15.5 % (11.5-14.5); Segmented Neutrophils % 91.5 %; White Blood Count 11.4 K/mcL (4.3-11.1)
[2019-05-17 03:37] LABS: Platelet Count 55 K/mcL (140-400)
[2019-05-17] MEDS: Ipratropium/Albuterol Neb 3 ML IH SCH ×5 (03:50→19:44)
[2019-05-17 03:56] LABS: BUN/Creatinine Ratio 23 (6-26); Blood Urea Nitrogen 21 mg/dL (6-20); Calcium 8.2 mg/dL (8.6-10.3); Carbon Dioxide 20 mEq/L (23-29); Chloride 111 mEq/L (98-107); Glucose 219 mg/dL (70-105); Magnesium 1.6 mg/dL (1.6-2.6); Osmolality,Calculated 300 (280-300); Potassium 4.6 mEq/L (3.5-5.1); Sodium 140 mEq/L (136-145); eGFR For African Americans > 60 (> 60); eGFR For Non-African Americans > 60 (> 60)
[2019-05-17 04:01] LABS: Platelet Estimate Marked Decrease (Normal)
[2019-05-17 04:38] LABS: Acinetobacter baumannii by PCR Not Detected (Not Detect); Candida albicans by PCR Not Detected (Not Detect); Candida glabrata by PCR Not Detected (Not Detect); Candida krusei by PCR Not Detected (Not Detect); Candida parapsilosis by PCR Not Detected (Not Detect); Candida tropicalis by PCR Not Detected (Not Detect); Enterobacter cloacae Cmplx PCR Not Detected (Not Detect); Enterobacteriaceae by PCR Not Detected (Not Detect); Enterococcus by PCR Not Detected (Not Detect); Escherichia coli by PCR Not Detected (Not Detect); Klebsiella oxytoca by PCR Not Detected (Not Detect); Klebsiella pneumoniae by PCR Not Detected (Not Detect); Proteus by PCR Not Detected (Not Detect); Pseudomonas aeruginosa by PCR Not Detected (Not Detect); Serratia marcescens by PCR Not Detected (Not Detect); Staphylococcus aureus by PCR Not Detected (Not Detect); Staphylococcus by PCR Not Detected (Not Detect); Streptococcus agalactiae(B)PCR Not Detected (Not Detect); Streptococcus pneumoniae PCR DETECTED (Not Detect); Streptococcus pyogenes (A) PCR Not Detected (Not Detect)
[2019-05-17 05:48] LABS: ABG Base Excess -8 mEq/L (-2 to 3); ABG HCO3 20 mEq/L (21-27); ABG Oxygen Saturation 93 % (95-98); ABG PCO2 48 mmHg (35-45); ABG PH 7.23 pH Units (7.32-7.45); ABG PO2 81 mmHg (85-104); ABG TCO2 22 mEq/L (20-26); Blood Gas VT 450 cc
[2019-05-17] MEDS: methylPREDNISolone 125 MG/2 ML VIAL IVP SCH (05:58)
[2019-05-17] MEDS: Pantoprazole 40 MG VIAL IVP SCH (07:28)
[2019-05-17] MEDS: Chlorhexidine Rinse 15 ML MOUTHWASH MM SCH ×2 (07:28→20:12)
[2019-05-17] MEDS ORDERED: Perflutren Lipid Microsphere 1.3 ML in 0.9 % Sodium Chloride 8.7 ML IVP ONE (08:21)
[2019-05-17] MEDS ORDERED: *HR* Succinylcholine 200 MG/10 ML VIAL IVP ONE (08:47)
[2019-05-17] MEDS ORDERED: *HR* Etomidate 40 MG/20 ML VIAL IVP ONE (08:47)
[2019-05-17 14:48] LABS: ABG Base Excess -5 mEq/L (-2 to 3); ABG HCO3 23 mEq/L (21-27); ABG Oxygen Saturation 94 % (95-98); ABG PCO2 55 mmHg (35-45); ABG PH 7.24 pH Units (7.32-7.45); ABG PO2 86 mmHg (85-104); ABG TCO2 25 mEq/L (20-26); Blood Gas Modality AF; Blood Gas VT 450 cc
[2019-05-17] MEDS: MethylPREDNISolone 40 MG/ML VIAL IVP SCH ×2 (15:25→23:48)
[2019-05-17] MEDS: Azithromycin 500 MG in 0.9 % Sodium Chloride 250 ML IVPB SCH (15:25)
[2019-05-17] MEDS: *HR* Heparin 5,000 UNIT/ML VIAL SQ SCH ×2 (15:27→20:12)
[2019-05-17] MEDS: Norepinephrine 4 MG in 0.9 % Sodium Chloride 250 ML IVC SCH (23:48)
[2019-05-18] MEDS: Ipratropium/Albuterol Neb 3 ML IH SCH ×7 (00:04→23:34)
[2019-05-18] MEDS: FentaNYL (PF) 1,000 MCG in 0.9 % Sodium Chloride 80 ML IVC SCH ×3 (01:47→21:24)
[2019-05-18] MEDS: Dexmedetomidine HCl 400 MCG/100 ML MLS IVC SCH ×5 (02:18→22:15)
[2019-05-18] MEDS: Cefepime HCl 2,000 MG in Water for inj. (sterile) 20 ML IVPB SCH ×3 (03:00→20:05)
[2019-05-18] MEDS: Artificial Tears SOLN 15 ML BOTTLE BOTH EYES SCH ×5 (03:11→20:06)
[2019-05-18 04:15] LABS: BUN/Creatinine Ratio 40 (6-26); Blood Urea Nitrogen 32 mg/dL (6-20); Calcium 9.2 mg/dL (8.6-10.3); Carbon Dioxide 21 mEq/L (23-29); Chloride 111 mEq/L (98-107); Glucose 170 mg/dL (70-105); Magnesium 2.1 mg/dL (1.6-2.6); Osmolality,Calculated 299 (280-300); Phosphorous 2.9 mg/dL (2.7-4.5); Potassium 4.2 mEq/L (3.5-5.1); Sodium 139 mEq/L (136-145); eGFR For African Americans > 60 (> 60); eGFR For Non-African Americans > 60 (> 60)
[2019-05-18 04:18] LABS: ABG Base Excess -4 mEq/L (-2 to 3); ABG HCO3 22 mEq/L (21-27); ABG Oxygen Saturation 80 % (95-98); ABG PCO2 43 mmHg (35-45); ABG PH 7.32 pH Units (7.32-7.45); ABG PO2 48 mmHg (85-104); ABG TCO2 23 mEq/L (20-26); Blood Gas VT 430 cc
[2019-05-18 04:24] LABS: Hematocrit 39.7 % (35.3-44.9); Hemoglobin 13.4 g/dL (11.5-15.4); Immature Platelets 10.1 % (1.1-6.1); Mean Corpuscular HGB Conc 33.8 g/dL (31.6-35.5); Mean Corpuscular Hemoglobin 31.6 pg (28.0-33.3); Mean Corpuscular Volume 93.6 fL (83.0-100.0); Mean Platelet Volume 13.2 fL (9.4-12.4); Monocytes # 0.6 K/mcL (0.0-1.3); Red Blood Count 4.24 M/mcL (3.82-4.97); Red Cell Distribution Width 15.6 % (11.5-14.5); White Blood Count 9.3 K/mcL (4.3-11.1)
[2019-05-18 04:40] LABS: Platelet Count 47 K/mcL (140-400)
[2019-05-18 05:08] LABS: Anisocytosis 1+ (Not Present); Lymphocytes # 0.2 K/mcL (0.6-4.6); Neutrophils # 8.6 K/mcL (1.6-8.9)
[2019-05-18 05:09] LABS: Platelet Estimate Decreased (Normal)
[2019-05-18 05:55] LABS: ABG Base Excess -2 mEq/L (-2 to 3); ABG HCO3 23 mEq/L (21-27); ABG Oxygen Saturation 96 % (95-98); ABG PCO2 38 mmHg (35-45); ABG PH 7.38 pH Units (7.32-7.45); ABG PO2 85 mmHg (85-104); ABG TCO2 24 mEq/L (20-26); Blood Gas Modality ASSIST CONTROL; Blood Gas VT 430 cc
[2019-05-18] MEDS: *HR* Heparin 5,000 UNIT/ML VIAL SQ SCH (06:05)
[2019-05-18] MEDS: Chlorhexidine Rinse 15 ML MOUTHWASH MM SCH ×2 (07:26→20:05)
[2019-05-18] MEDS: Pantoprazole 40 MG VIAL IVP SCH (07:27)
[2019-05-18] MEDS: MethylPREDNISolone 40 MG/ML VIAL IVP SCH ×2 (07:27→17:02)
[2019-05-18] MEDS ORDERED: Furosemide 20 MG/2 ML VIAL IVP ONE ×2 (09:07→16:16)
[2019-05-18 09:19] LABS: Albumin 2.7 g/dL (3.5-5.7); Bilirubin,Direct 0.4 mg/dL (0.0-0.2); Bilirubin,Indirect 0.5 mg/dL (0.0-1.0); Bilirubin,Total 0.9 mg/dL (0.3-1.0); Globulin 2.8 g/dL (2.4-3.5); Total Protein 5.5 g/dL (6.4-8.9)
[2019-05-18] MEDS: Norepinephrine 4 MG in 0.9 % Sodium Chloride 250 ML IVC SCH (12:13)
[2019-05-18] MEDS: Azithromycin 500 MG in 0.9 % Sodium Chloride 250 ML IVPB SCH (17:02)
[2019-05-19] MEDS: MethylPREDNISolone 40 MG/ML VIAL IVP SCH ×4 (00:38→23:35)
[2019-05-19] MEDS: Artificial Tears SOLN 15 ML BOTTLE BOTH EYES SCH ×7 (00:38→23:33)
[2019-05-19] MEDS: Cefepime HCl 2,000 MG in Water for inj. (sterile) 20 ML IVPB SCH ×2 (03:19→10:10)
[2019-05-19] MEDS: FentaNYL (PF) 1,000 MCG in 0.9 % Sodium Chloride 80 ML IVC SCH ×4 (03:20→22:10)
[2019-05-19] MEDS: Dexmedetomidine HCl 400 MCG/100 ML MLS IVC SCH ×5 (03:20→23:53)
[2019-05-19] MEDS: Ipratropium/Albuterol Neb 3 ML IH SCH ×6 (03:32→23:21)
[2019-05-19 04:59] LABS: ABG Base Excess 2 mEq/L (-2 to 3); ABG HCO3 24 mEq/L (21-27); ABG Oxygen Saturation 94 % (95-98); ABG PCO2 28 mmHg (35-45); ABG PH 7.54 pH Units (7.32-7.45); ABG PO2 60 mmHg (85-104); ABG TCO2 25 mEq/L (20-26); Blood Gas Modality ASSIST CONTROL; Blood Gas VT 430 cc
[2019-05-19 05:17] LABS: Mean Corpuscular Volume 92.5 fL (83.0-100.0)
[2019-05-19 05:19] LABS: Hematocrit 38.3 % (35.3-44.9); Immature Platelets 8.9 % (1.1-6.1); Mean Corpuscular HGB Conc 33.9 g/dL (31.6-35.5); Mean Corpuscular Hemoglobin 31.4 pg (28.0-33.3); Mean Platelet Volume 13.1 fL (9.4-12.4); Red Blood Count 4.14 M/mcL (3.82-4.97); Red Cell Distribution Width 15.6 % (11.5-14.5); White Blood Count 8.1 K/mcL (4.3-11.1)
[2019-05-19 05:23] LABS: Platelet Count 43 K/mcL (140-400)
[2019-05-19 05:26] LABS: BUN/Creatinine Ratio 49 (6-26); Blood Urea Nitrogen 36 mg/dL (6-20); Calcium 9.4 mg/dL (8.6-10.3); Carbon Dioxide 23 mEq/L (23-29); Chloride 109 mEq/L (98-107); Glucose 189 mg/dL (70-105); Magnesium 2.1 mg/dL (1.6-2.6); Osmolality,Calculated 309 (280-300); Phosphorous 2.7 mg/dL (2.7-4.5); Potassium 3.3 mEq/L (3.5-5.1); Sodium 143 mEq/L (136-145); eGFR For African Americans > 60 (> 60); eGFR For Non-African Americans > 60 (> 60)
[2019-05-19 05:42] LABS: Lymphocytes # 0.3 K/mcL (0.6-4.6); Monocytes # 0.2 K/mcL (0.0-1.3); Neutrophils # 7.3 K/mcL (1.6-8.9); Platelet Estimate Decreased (Normal)
[2019-05-19] MEDS ORDERED: Potassium Chloride 40 MEQ/200 ML BAG IVPB PRN (07:15)
[2019-05-19] MEDS: Pantoprazole 40 MG VIAL IVP SCH (08:05)
[2019-05-19] MEDS: Chlorhexidine Rinse 15 ML MOUTHWASH MM SCH ×2 (08:05→19:52)
[2019-05-19 09:31] LABS: ABG Base Excess -1 mEq/L (-2 to 3); ABG HCO3 24 mEq/L (21-27); ABG Oxygen Saturation 96 % (95-98); ABG PCO2 42 mmHg (35-45); ABG PH 7.37 pH Units (7.32-7.45); ABG PO2 84 mmHg (85-104); ABG TCO2 25 mEq/L (20-26); Blood Gas Modality ASSIST CONTROL; Blood Gas VT 430 cc
[2019-05-19] MEDS: Bisacodyl 10 MG RECTAL SUPPOSITORY RC SCH (09:40)
[2019-05-19] MEDS: Norepinephrine 4 MG in 0.9 % Sodium Chloride 250 ML IVC SCH (10:11)
[2019-05-19 12:57] LABS: Appearance of Body Fluid Cloudy (Clear); Volume of Body Fluid 8 mL
[2019-05-19] MEDS: Azithromycin 500 MG in 0.9 % Sodium Chloride 250 ML IVPB SCH (14:00)
[2019-05-19] MEDS: cefTRIAXone 2,000 MG in Water for inj. (sterile) 20 ML IVP SCH (17:10)
[2019-05-20] MEDS: Ipratropium/Albuterol Neb 3 ML IH SCH ×6 (03:06→23:01)
[2019-05-20] MEDS: Artificial Tears SOLN 15 ML BOTTLE BOTH EYES SCH ×3 (03:31→11:33)
[2019-05-20 03:52] LABS: Basophils % 0.2 %; Red Cell Distribution Width 15.9 % (11.5-14.5)
[2019-05-20 03:54] LABS: Immature Platelets 8.1 % (1.1-6.1); Monocytes % 4.7 %; Segmented Neutrophils % 90.4 %
[2019-05-20 04:00] LABS: Hematocrit 39.3 % (35.3-44.9); Hemoglobin 13.1 g/dL (11.5-15.4); Immature Granulocytes % 0.7 % (0-4); Lymphocytes # 0.2 K/mcL (0.6-4.6); Mean Corpuscular HGB Conc 33.3 g/dL (31.6-35.5); Mean Corpuscular Hemoglobin 32.1 pg (28.0-33.3); Mean Corpuscular Volume 96.3 fL (83.0-100.0); Mean Platelet Volume 12.9 fL (9.4-12.4); Monocytes # 0.3 K/mcL (0.0-1.3); Red Blood Count 4.08 M/mcL (3.82-4.97)
[2019-05-20 04:01] LABS: Neutrophils # 5.4 K/mcL (1.6-8.9); Platelet Count 40 K/mcL (140-400)
[2019-05-20 04:02] LABS: BUN/Creatinine Ratio 51 (6-26); Blood Urea Nitrogen 43 mg/dL (6-20); Calcium 9.3 mg/dL (8.6-10.3); Carbon Dioxide 23 mEq/L (23-29); Chloride 111 mEq/L (98-107); Glucose 172 mg/dL (70-105); Magnesium 2.3 mg/dL (1.6-2.6); Osmolality,Calculated 313 (280-300); Sodium 144 mEq/L (136-145); eGFR For African Americans > 60 (> 60); eGFR For Non-African Americans > 60 (> 60)
[2019-05-20 04:50] LABS: ABG Base Excess 0 mEq/L (-2 to 3); ABG HCO3 24 mEq/L (21-27); ABG Oxygen Saturation 94 % (95-98); ABG PCO2 35 mmHg (35-45); ABG PH 7.45 pH Units (7.32-7.45); ABG PO2 66 mmHg (85-104); ABG TCO2 25 mEq/L (20-26); Blood Gas Modality AF; Blood Gas VT 430 cc
[2019-05-20] MEDS: Dexmedetomidine HCl 400 MCG/100 ML MLS IVC SCH ×6 (06:06→23:32)
[2019-05-20] MEDS: MethylPREDNISolone 40 MG/ML VIAL IVP SCH ×3 (07:15→23:32)
[2019-05-20] MEDS: Chlorhexidine Rinse 15 ML MOUTHWASH MM SCH ×2 (08:03→20:28)
[2019-05-20] MEDS: Pantoprazole 40 MG VIAL IVP SCH (08:03)
[2019-05-20] MEDS: Bisacodyl 10 MG RECTAL SUPPOSITORY RC SCH (08:03)
[2019-05-20] MEDS: Azithromycin 500 MG in 0.9 % Sodium Chloride 250 ML IVPB SCH (14:14)
[2019-05-20] MEDS: cefTRIAXone 2,000 MG in Water for inj. (sterile) 20 ML IVP SCH (17:12)
[2019-05-21] MEDS: Dexmedetomidine HCl 400 MCG/100 ML MLS IVC SCH ×5 (01:49→17:53)
[2019-05-21] MEDS: Ipratropium/Albuterol Neb 3 ML IH SCH ×6 (03:06→23:23)
[2019-05-21 04:21] LABS: Basophils % 0.2 %
[2019-05-21 04:22] LABS: Hematocrit 40.9 % (35.3-44.9); Hemoglobin 13.6 g/dL (11.5-15.4); Immature Granulocytes % 0.6 % (0-4); Immature Platelets 10.5 % (1.1-6.1); Lymphocytes # 0.2 K/mcL (0.6-4.6); Lymphocytes % 3.8 %; Mean Corpuscular HGB Conc 33.3 g/dL (31.6-35.5); Mean Corpuscular Hemoglobin 31.8 pg (28.0-33.3); Mean Corpuscular Volume 95.6 fL (83.0-100.0); Mean Platelet Volume 12.1 fL (9.4-12.4); Monocytes # 0.4 K/mcL (0.0-1.3); Monocytes % 7.2 %; Neutrophils # 4.7 K/mcL (1.6-8.9); Red Blood Count 4.28 M/mcL (3.82-4.97); Red Cell Distribution Width 15.9 % (11.5-14.5); Segmented Neutrophils % 88.2 %; White Blood Count 5.3 K/mcL (4.3-11.1)
[2019-05-21 04:26] LABS: Platelet Count 33 K/mcL (140-400)
[2019-05-21 04:27] LABS: Platelet Estimate Marked Decrease (Normal)
[2019-05-21 04:43] LABS: BUN/Creatinine Ratio 51 (6-26); Blood Urea Nitrogen 52 mg/dL (6-20); Calcium 9.3 mg/dL (8.6-10.3); Carbon Dioxide 25 mEq/L (23-29); Chloride 112 mEq/L (98-107); Glucose 167 mg/dL (70-105); Magnesium 2.4 mg/dL (1.6-2.6); Osmolality,Calculated 312 (280-300); Potassium 4.6 mEq/L (3.5-5.1); Sodium 142 mEq/L (136-145); eGFR For African Americans > 60 (> 60); eGFR For Non-African Americans 56 (> 60)
[2019-05-21] MEDS: Chlorhexidine Rinse 15 ML MOUTHWASH MM SCH ×2 (07:28→20:59)
[2019-05-21] MEDS: Pantoprazole 40 MG VIAL IVP SCH (08:17)
[2019-05-21] MEDS: Bisacodyl 10 MG RECTAL SUPPOSITORY RC SCH (08:17)
[2019-05-21] MEDS: MethylPREDNISolone 40 MG/ML VIAL IVP SCH ×2 (08:17→15:10)
[2019-05-21 10:33] LABS: ABG Base Excess 1 mEq/L (-2 to 3); ABG HCO3 26 mEq/L (21-27); ABG Oxygen Saturation 96 % (95-98); ABG PCO2 40 mmHg (35-45); ABG PH 7.41 pH Units (7.32-7.45); ABG PO2 80 mmHg (85-104); ABG TCO2 27 mEq/L (20-26)
[2019-05-21] MEDS ORDERED: Furosemide 40 MG/4 ML VIAL IVP ONE (11:00)
[2019-05-21 15:44] LABS: Calcium 9.5 mg/dL (8.6-10.3); Potassium 4.8 mEq/L (3.5-5.1)
[2019-05-21] MEDS: cefTRIAXone 2,000 MG in Water for inj. (sterile) 20 ML IVP SCH (17:54)
[2019-05-21] MEDS: Sennosides 8.6 MG TABLET PO SCH (20:53)
[2019-05-22] MEDS: MethylPREDNISolone 40 MG/ML VIAL IVP SCH ×3 (00:20→15:37)
[2019-05-22] MEDS: Dexmedetomidine HCl 400 MCG/100 ML MLS IVC SCH ×2 (00:20→06:53)
[2019-05-22] MEDS: Ipratropium/Albuterol Neb 3 ML IH SCH ×5 (03:24→19:51)
[2019-05-22] MEDS ORDERED: *HR* LORazepam 2 MG/ML VIAL IVP ONE (04:04)
[2019-05-22 04:29] LABS: Basophils % 0.2 %; Mean Corpuscular Hemoglobin 31.2 pg (28.0-33.3); Red Cell Distribution Width 15.9 % (11.5-14.5)
[2019-05-22 04:31] LABS: Hemoglobin 14.1 g/dL (11.5-15.4); Immature Granulocytes % 1.2 % (0-4); Immature Platelets 12.6 % (1.1-6.1); Lymphocytes # 0.2 K/mcL (0.6-4.6); Lymphocytes % 4.1 %; Mean Corpuscular HGB Conc 32.8 g/dL (31.6-35.5); Mean Corpuscular Volume 95.1 fL (83.0-100.0); Mean Platelet Volume 13.8 fL (9.4-12.4); Monocytes # 0.5 K/mcL (0.0-1.3); Red Blood Count 4.52 M/mcL (3.82-4.97); Segmented Neutrophils % 85.5 %; White Blood Count 5.9 K/mcL (4.3-11.1)
[2019-05-22 04:34] LABS: Platelet Count 32 K/mcL (140-400)
[2019-05-22 04:54] LABS: BUN/Creatinine Ratio 49 (6-26); Blood Urea Nitrogen 49 mg/dL (6-20); Calcium 9.7 mg/dL (8.6-10.3); Carbon Dioxide 27 mEq/L (23-29); Chloride 112 mEq/L (98-107); Glucose 163 mg/dL (70-105); Magnesium 2.4 mg/dL (1.6-2.6); Osmolality,Calculated 319 (280-300); Potassium 4.4 mEq/L (3.5-5.1); Sodium 146 mEq/L (136-145); eGFR For African Americans > 60 (> 60); eGFR For Non-African Americans 57 (> 60)
[2019-05-22] MEDS: Bisacodyl 10 MG RECTAL SUPPOSITORY RC SCH (07:54)
[2019-05-22] MEDS: Sennosides 8.6 MG TABLET PO SCH ×2 (07:54→20:03)
[2019-05-22] MEDS: Pantoprazole 40 MG VIAL IVP SCH (07:56)
[2019-05-22] MEDS ORDERED: *HR* LORazepam 2 MG/ML VIAL IVP PRN (09:56)
[2019-05-22] MEDS ORDERED: *HR* Metoprolol 5 MG/5 ML VIAL IVP ONE ×3 (15:10→21:44)
[2019-05-22] MEDS ORDERED: Albuterol 2.5 MG/3 ML NEBULIZER IH PRN (16:14)
[2019-05-22] MEDS ORDERED: Naloxone 0.4 MG/ML INJ IVP PRN (16:14)
[2019-05-22] MEDS: cefTRIAXone 2,000 MG in Water for inj. (sterile) 20 ML IVP SCH (17:22)
[2019-05-22] MEDS ORDERED: Acetaminophen 325 MG TABLET PO PRN (17:32)
[2019-05-22] MEDS: Acetaminophen 325 MG TABLET PO PRN (17:45)
[2019-05-22] MEDS: *HR* LORazepam 2 MG/ML VIAL IVP PRN (21:56)
[2019-05-23] MEDS: Ipratropium/Albuterol Neb 3 ML IH SCH (00:33)
[2019-05-23] MEDS: MethylPREDNISolone 40 MG/ML VIAL IVP SCH ×2 (01:02→07:55)
[2019-05-23 03:26] LABS: VBG HCO3 29 mEq/L (21-27); VBG PCO2 41 mmHg (41-51); VBG PH 7.46 pH Units (7.32-7.42); VBG PO2 89 mmHg (25-50)
[2019-05-23] MEDS: Levalbuterol Neb 1.25 MG/3 ML IH SCH ×5 (04:28→19:50)
[2019-05-23] MEDS: Acetaminophen 325 MG TABLET PO PRN ×2 (07:54→14:58)
[2019-05-23] MEDS: Sennosides 8.6 MG TABLET PO SCH ×2 (07:54→20:27)
[2019-05-23] MEDS: Bisacodyl 10 MG RECTAL SUPPOSITORY RC SCH (07:55)
[2019-05-23 08:31] LABS: Basophils # 0.1 K/mcL (0.0-0.2); Basophils % 0.5 %; Eosinophils # 0.2 K/mcL (0.0-0.6); Hematocrit 45.5 % (35.3-44.9); Hemoglobin 14.8 g/dL (11.5-15.4); Immature Granulocytes % 1.5 % (0-4); Lymphocytes # 1.1 K/mcL (0.6-4.6); Lymphocytes % 7.4 %; Mean Corpuscular HGB Conc 32.5 g/dL (31.6-35.5); Mean Corpuscular Hemoglobin 31.6 pg (28.0-33.3); Mean Corpuscular Volume 97.2 fL (83.0-100.0); Mean Platelet Volume 12.4 fL (9.4-12.4); Monocytes # 1.3 K/mcL (0.0-1.3); Monocytes % 8.7 %; Neutrophils # 12.5 K/mcL (1.6-8.9); Red Blood Count 4.68 M/mcL (3.82-4.97); Red Cell Distribution Width 15.9 % (11.5-14.5); Segmented Neutrophils % 80.9 %; White Blood Count 15.4 K/mcL (4.3-11.1)
[2019-05-23 08:33] LABS: Platelet Count 48 K/mcL (140-400)
[2019-05-23 08:53] LABS: BUN/Creatinine Ratio 44 (6-26); Blood Urea Nitrogen 34 mg/dL (6-20); Calcium 10.1 mg/dL (8.6-10.3); Carbon Dioxide 22 mEq/L (23-29); Chloride 108 mEq/L (98-107); Glucose 138 mg/dL (70-105); Magnesium 1.9 mg/dL (1.6-2.6); Osmolality,Calculated 304 (280-300); Potassium 4.1 mEq/L (3.5-5.1); Sodium 142 mEq/L (136-145); eGFR For African Americans > 60 (> 60); eGFR For Non-African Americans > 60 (> 60)
[2019-05-23] MEDS: cefTRIAXone 2,000 MG in Water for inj. (sterile) 20 ML IVP SCH (16:52)
[2019-05-24] MEDS: Levalbuterol Neb 1.25 MG/3 ML IH SCH ×7 (00:30→23:44)
[2019-05-24 05:33] LABS: Hematocrit 44.3 % (35.3-44.9); Hemoglobin 14.3 g/dL (11.5-15.4); Mean Corpuscular HGB Conc 32.3 g/dL (31.6-35.5); Mean Corpuscular Hemoglobin 31.6 pg (28.0-33.3); Mean Corpuscular Volume 97.8 fL (83.0-100.0); Mean Platelet Volume 13.2 fL (9.4-12.4); Red Blood Count 4.53 M/mcL (3.82-4.97); Red Cell Distribution Width 15.8 % (11.5-14.5)
[2019-05-24 05:35] LABS: Platelet Count 46 K/mcL (140-400); White Blood Count 14.1 K/mcL (4.3-11.1)
[2019-05-24 05:41] LABS: BUN/Creatinine Ratio 35 (6-26); Blood Urea Nitrogen 22 mg/dL (6-20); Carbon Dioxide 28 mEq/L (23-29); Chloride 107 mEq/L (98-107); Glucose 124 mg/dL (70-105); Magnesium 1.6 mg/dL (1.6-2.6); Osmolality,Calculated 301 (280-300); Potassium 3.8 mEq/L (3.5-5.1); Sodium 143 mEq/L (136-145); eGFR For African Americans > 60 (> 60); eGFR For Non-African Americans > 60 (> 60)
[2019-05-24] MEDS: Sennosides 8.6 MG TABLET PO SCH ×2 (08:26→20:02)
[2019-05-24] MEDS: predniSONE 20 MG TABLET PO SCH (08:26)
[2019-05-24] MEDS: Bisacodyl 10 MG RECTAL SUPPOSITORY RC SCH (08:26)
[2019-05-24] MEDS: cefTRIAXone 2,000 MG in Water for inj. (sterile) 20 ML IVP SCH (17:47)
[2019-05-24] MEDS: Acetaminophen 325 MG TABLET PO PRN (18:57)
[2019-05-24] MEDS: Melatonin 3 MG TABLET PO PRN (23:18)
[2019-05-25] MEDS: Levalbuterol Neb 1.25 MG/3 ML IH SCH ×6 (04:11→23:35)
[2019-05-25] MEDS: Ondansetron ODT 4 MG TAB.RAPDIS SL PRN ×3 (04:13→20:08)
[2019-05-25] MEDS ORDERED: Ondansetron ODT 4 MG TAB.RAPDIS SL ONE (06:23)
[2019-05-25] MEDS: Bisacodyl 10 MG RECTAL SUPPOSITORY RC SCH (10:58)
[2019-05-25] MEDS: Sennosides 8.6 MG TABLET PO SCH ×2 (12:24→20:08)
[2019-05-25] MEDS: predniSONE 20 MG TABLET PO SCH (12:24)
[2019-05-25] MEDS: cefTRIAXone 2,000 MG in Water for inj. (sterile) 20 ML IVP SCH (18:26)
[2019-05-25] MEDS: Melatonin 3 MG TABLET PO PRN (20:09)
[2019-05-26] MEDS: *HR* LORazepam 2 MG/ML VIAL IVP PRN ×3 (00:28→15:12)
[2019-05-26] MEDS ORDERED: *HR* Promethazine 25 MG/ML VIAL IVP ONE (00:35)
[2019-05-26] MEDS: *HR* Promethazine 25 MG/ML VIAL IVP PRN (04:20)
[2019-05-26] MEDS: Levalbuterol Neb 1.25 MG/3 ML IH SCH ×6 (04:29→23:40)
[2019-05-26 05:06] LABS: BUN/Creatinine Ratio 37 (6-26); Blood Urea Nitrogen 22 mg/dL (6-20); Carbon Dioxide 30 mEq/L (23-29); Chloride 104 mEq/L (98-107); Glucose 113 mg/dL (70-105); Magnesium 1.8 mg/dL (1.6-2.6); Osmolality,Calculated 298 (280-300); Potassium 4.5 mEq/L (3.5-5.1); Sodium 142 mEq/L (136-145); eGFR For African Americans > 60 (> 60); eGFR For Non-African Americans > 60 (> 60)
[2019-05-26 07:06] LABS: Hematocrit 46.1 % (35.3-44.9); Hemoglobin 14.8 g/dL (11.5-15.4); Mean Corpuscular HGB Conc 32.1 g/dL (31.6-35.5); Mean Corpuscular Hemoglobin 31.8 pg (28.0-33.3); Mean Corpuscular Volume 99.1 fL (83.0-100.0); Mean Platelet Volume 13.4 fL (9.4-12.4); Red Blood Count 4.65 M/mcL (3.82-4.97); Red Cell Distribution Width 15.7 % (11.5-14.5); White Blood Count 26.7 K/mcL (4.3-11.1)
[2019-05-26 07:09] LABS: Platelet Count 57 K/mcL (140-400)
[2019-05-26] MEDS: Bisacodyl 10 MG RECTAL SUPPOSITORY RC SCH (09:23)
[2019-05-26] MEDS: Sennosides 8.6 MG TABLET PO SCH ×2 (09:23→19:47)
[2019-05-26] MEDS: predniSONE 20 MG TABLET PO SCH (09:23)
[2019-05-26] MEDS: MetroNIDAZOLE 500 MG/100 ML 500 MG/100 ML BAG IVPB SCH ×2 (12:13→19:06)
[2019-05-26 17:08] LABS: Eosinophils % 0.4 %; Lymphocytes % 4.5 %; Monocytes % 5.3 %; Red Cell Distribution Width 15.7 % (11.5-14.5)
[2019-05-26 17:10] LABS: Basophils # 0.1 K/mcL (0.0-0.2); Basophils % 0.2 %; Eosinophils # 0.1 K/mcL (0.0-0.6); Hematocrit 44.9 % (35.3-44.9); Hemoglobin 14.7 g/dL (11.5-15.4); Immature Granulocytes % 0.7 % (0-4); Immature Platelets 16.6 % (1.1-6.1); Lymphocytes # 1.1 K/mcL (0.6-4.6); Mean Corpuscular HGB Conc 32.7 g/dL (31.6-35.5); Mean Corpuscular Hemoglobin 31.6 pg (28.0-33.3); Mean Corpuscular Volume 96.6 fL (83.0-100.0); Mean Platelet Volume 13.5 fL (9.4-12.4); Monocytes # 1.3 K/mcL (0.0-1.3); Neutrophils # 22.1 K/mcL (1.6-8.9); Red Blood Count 4.65 M/mcL (3.82-4.97); Segmented Neutrophils % 88.9 %; White Blood Count 24.8 K/mcL (4.3-11.1)
[2019-05-26] MEDS: cefTRIAXone 2,000 MG in Water for inj. (sterile) 20 ML IVP SCH (17:15)
[2019-05-26 17:19] LABS: Platelet Count 60 K/mcL (140-400)
[2019-05-26] MEDS: 0.9 % Sodium Chloride 500 ML IVC SCH (19:06)
[2019-05-26] MEDS ORDERED: *HR* LORazepam 2 MG/ML VIAL IVP ONE (21:18)
[2019-05-27] MEDS: Levalbuterol Neb 1.25 MG/3 ML IH SCH ×5 (04:30→19:47)
[2019-05-27 05:15] LABS: Eosinophils % 0.6 %; Immature Granulocytes % 0.9 % (0-4); Mean Corpuscular Hemoglobin 31.8 pg (28.0-33.3); Red Cell Distribution Width 15.8 % (11.5-14.5)
[2019-05-27 05:16] LABS: Basophils # 0.1 K/mcL (0.0-0.2); Basophils % 0.2 %; Eosinophils # 0.2 K/mcL (0.0-0.6); Hematocrit 43.6 % (35.3-44.9); Hemoglobin 14.2 g/dL (11.5-15.4); Lymphocytes # 1.5 K/mcL (0.6-4.6); Lymphocytes % 5.5 %; Mean Corpuscular HGB Conc 32.6 g/dL (31.6-35.5); Mean Corpuscular Volume 97.5 fL (83.0-100.0); Mean Platelet Volume 13.4 fL (9.4-12.4); Red Blood Count 4.47 M/mcL (3.82-4.97); Segmented Neutrophils % 85.8 %; White Blood Count 26.3 K/mcL (4.3-11.1)
[2019-05-27 05:18] LABS: Monocytes # 1.8 K/mcL (0.0-1.3); Neutrophils # 22.6 K/mcL (1.6-8.9); Platelet Count 55 K/mcL (140-400)
[2019-05-27 05:49] LABS: Platelet Estimate Decreased (Normal)
[2019-05-27 07:31] LABS: BUN/Creatinine Ratio 42 (6-26); Blood Urea Nitrogen 24 mg/dL (6-20); Calcium 9.8 mg/dL (8.6-10.3); Carbon Dioxide 27 mEq/L (23-29); Chloride 104 mEq/L (98-107); Glucose 102 mg/dL (70-105); Magnesium 1.7 mg/dL (1.6-2.6); Osmolality,Calculated 300 (280-300); Potassium 5.1 mEq/L (3.5-5.1); Sodium 143 mEq/L (136-145); eGFR For African Americans > 60 (> 60); eGFR For Non-African Americans > 60 (> 60)
[2019-05-27] MEDS ORDERED: Isovue-370 500 ML BOTTLE IVP ONE (08:35)
[2019-05-27] MEDS: Sennosides 8.6 MG TABLET PO SCH (10:30)
[2019-05-27] MEDS: predniSONE 20 MG TABLET PO SCH (10:31)
[2019-05-27] MEDS: MetroNIDAZOLE 500 MG/100 ML 500 MG/100 ML BAG IVPB SCH ×2 (10:32→18:00)
[2019-05-27] MEDS: Bisacodyl 10 MG RECTAL SUPPOSITORY RC SCH (10:32)
[2019-05-27] MEDS: *HR* Promethazine 25 MG/ML VIAL IVP PRN (14:24)
[2019-05-27] MEDS: *HR* LORazepam 2 MG/ML VIAL IVP PRN ×3 (14:35→20:55)
[2019-05-27] MEDS: 0.9 % Sodium Chloride 500 ML IVC SCH (15:16)
[2019-05-27] MEDS: cefTRIAXone 2,000 MG in Water for inj. (sterile) 20 ML IVP SCH (18:00)
[2019-05-28] MEDS: Levalbuterol Neb 1.25 MG/3 ML IH SCH ×6 (00:08→20:34)
[2019-05-28] MEDS: *HR* LORazepam 2 MG/ML VIAL IVP PRN ×3 (00:39→08:51)
[2019-05-28] MEDS: Melatonin 3 MG TABLET PO PRN (00:39)
[2019-05-28] MEDS: Sennosides 8.6 MG TABLET PO SCH ×2 (00:39→08:45)
[2019-05-28 01:20] LABS: BUN/Creatinine Ratio 38 (6-26); Basophils % 0.2 %; Blood Urea Nitrogen 22 mg/dL (6-20); Calcium 9.9 mg/dL (8.6-10.3); Carbon Dioxide 31 mEq/L (23-29); Chloride 106 mEq/L (98-107); Glucose 124 mg/dL (70-105); Hemoglobin 13.7 g/dL (11.5-15.4); Immature Granulocytes % 0.7 % (0-4); Magnesium 1.7 mg/dL (1.6-2.6); Osmolality,Calculated 299 (280-300); Potassium 4.1 mEq/L (3.5-5.1); Sodium 142 mEq/L (136-145); eGFR For African Americans > 60 (> 60); eGFR For Non-African Americans > 60 (> 60)
[2019-05-28 01:22] LABS: Eosinophils % 0.1 %; Hematocrit 41.3 % (35.3-44.9); Immature Platelets 12.8 % (1.1-6.1); Lymphocytes # 0.5 K/mcL (0.6-4.6); Lymphocytes % 2.3 %; Mean Corpuscular HGB Conc 33.2 g/dL (31.6-35.5); Mean Corpuscular Hemoglobin 31.9 pg (28.0-33.3); Mean Platelet Volume 12.8 fL (9.4-12.4); Monocytes # 1.1 K/mcL (0.0-1.3); Monocytes % 5.3 %; Neutrophils # 18.3 K/mcL (1.6-8.9); Red Cell Distribution Width 15.8 % (11.5-14.5); Segmented Neutrophils % 91.4 %
[2019-05-28 01:23] LABS: Platelet Count 64 K/mcL (140-400)
[2019-05-28] MEDS: 0.9 % Sodium Chloride 500 ML IVC SCH ×3 (05:08→23:45)
[2019-05-28] MEDS: MetroNIDAZOLE 500 MG/100 ML 500 MG/100 ML BAG IVPB SCH ×3 (05:20→17:00)
[2019-05-28] MEDS: *HR* Promethazine 25 MG/ML VIAL IVP PRN (05:47)
[2019-05-28] MEDS: Bisacodyl 10 MG RECTAL SUPPOSITORY RC SCH (08:45)
[2019-05-28] MEDS ORDERED: *HR* HYDROcodone/Acet 5/325 mg TABLET PO PRN (16:47)
[2019-05-28] MEDS: cefTRIAXone 2,000 MG in Water for inj. (sterile) 20 ML IVP SCH (16:55)
[2019-05-28 17:01] LABS: ABG Base Excess 5 mEq/L (-2 to 3); ABG HCO3 30 mEq/L (21-27); ABG Oxygen Saturation 94 % (95-98); ABG PCO2 44 mmHg (35-45); ABG PH 7.43 pH Units (7.32-7.45); ABG PO2 69 mmHg (85-104); ABG TCO2 31 mEq/L (20-26)
[2019-05-28] MEDS ORDERED: *HR* LORazepam 2 MG/ML VIAL IVP PRN (20:50)
[2019-05-28] MEDS ORDERED: NON-FORMULARY MEDICATION 1 EACH EACH (Gabapentin [Neurontin] 600 MG) PO SCH (21:00)
[2019-05-29] MEDS: Levalbuterol Neb 1.25 MG/3 ML IH SCH ×7 (00:02→23:51)
[2019-05-29 01:17] LABS: ABG Base Excess 4 mEq/L (-2 to 3); ABG HCO3 30 mEq/L (21-27); ABG Oxygen Saturation 93 % (95-98); ABG PCO2 49 mmHg (35-45); ABG PH 7.39 pH Units (7.32-7.45); ABG PO2 67 mmHg (85-104); ABG TCO2 31 mEq/L (20-26)
[2019-05-29] MEDS: Gabapentin 100 MG CAPSULE PO SCH ×4 (01:39→21:49)
[2019-05-29] MEDS: MetroNIDAZOLE 500 MG/100 ML 500 MG/100 ML BAG IVPB SCH ×3 (02:34→17:33)
[2019-05-29] MEDS: Haloperidol Lactate 5 MG/ML VIAL IVP ONE (02:36)
[2019-05-29] MEDS: Sennosides 8.6 MG TABLET PO SCH ×2 (02:47→08:32)
[2019-05-29 07:23] LABS: Basophils % 0.2 %; Eosinophils % 0.1 %; Lymphocytes % 1.9 %; Red Cell Distribution Width 16.2 % (11.5-14.5)
[2019-05-29 07:26] LABS: Hematocrit 45.4 % (35.3-44.9); Hemoglobin 14.3 g/dL (11.5-15.4); Immature Granulocytes % 0.9 % (0-4); Immature Platelets 11.2 % (1.1-6.1); Lymphocytes # 0.3 K/mcL (0.6-4.6); Mean Corpuscular HGB Conc 31.5 g/dL (31.6-35.5); Mean Corpuscular Hemoglobin 31.4 pg (28.0-33.3); Mean Corpuscular Volume 99.6 fL (83.0-100.0); Mean Platelet Volume 12.6 fL (9.4-12.4); Monocytes # 0.7 K/mcL (0.0-1.3); Monocytes % 4.2 %; Neutrophils # 14.7 K/mcL (1.6-8.9); Red Blood Count 4.56 M/mcL (3.82-4.97); Segmented Neutrophils % 92.7 %; White Blood Count 15.8 K/mcL (4.3-11.1)
[2019-05-29 07:30] LABS: Platelet Count 59 K/mcL (140-400)
[2019-05-29 07:56] LABS: BUN/Creatinine Ratio 36 (6-26); Blood Urea Nitrogen 21 mg/dL (6-20); Calcium 10.2 mg/dL (8.6-10.3); Carbon Dioxide 29 mEq/L (23-29); Chloride 110 mEq/L (98-107); Glucose 112 mg/dL (70-105); Osmolality,Calculated 316 (280-300); Phosphorous 3.1 mg/dL (2.7-4.5); Sodium 151 mEq/L (136-145); eGFR For African Americans > 60 (> 60); eGFR For Non-African Americans > 60 (> 60)
[2019-05-29] MEDS ORDERED: D5% in 0.45% NACL 1,000 ML IVC SCH ×2 (08:00→12:19)
[2019-05-29] MEDS: Bisacodyl 10 MG RECTAL SUPPOSITORY RC SCH (08:32)
[2019-05-29] MEDS ORDERED: Metoprolol XL (24 HR) Succ 25 MG TAB.ER.24H PO SCH (09:00)
[2019-05-29] MEDS ORDERED: Aspirin Enteric Coated 81 MG Tablet PO SCH (09:00)
[2019-05-29] MEDS ORDERED: Haloperidol Lactate 5 MG/ML VIAL IVP PRN ×2 (09:07→12:19)
[2019-05-29] MEDS ORDERED: Fluconazole 200 MG/100 ML 200 MG/100 ML BAG IVPB SCH (09:15)
[2019-05-29 11:01] LABS: VBG HCO3 30 mEq/L (21-27); VBG PCO2 46 mmHg (41-51); VBG PH 7.43 pH Units (7.32-7.42); VBG PO2 67 mmHg (25-50)
[2019-05-29] MEDS ORDERED: Isovue-370 500 ML BOTTLE IVP ONE (11:05)
[2019-05-29] MEDS ORDERED: *HR* HYDROcodone/Acet 5/325 mg TABLET PO PRN (12:19)
[2019-05-29] MEDS ORDERED: *HR* Promethazine 25 MG/ML VIAL IVP PRN (12:19)
[2019-05-29] MEDS ORDERED: Naloxone 0.4 MG/ML INJ IVP PRN (12:19)
[2019-05-29] MEDS ORDERED: Acetaminophen 325 MG TABLET PO PRN (12:19)
[2019-05-29] MEDS ORDERED: Haloperidol Lactate 5 MG/ML VIAL IVP ONE (12:19)
[2019-05-29] MEDS ORDERED: Melatonin 3 MG TABLET PO PRN (12:19)
[2019-05-29] MEDS: D5% in 0.45% NACL 1,000 ML IVC SCH ×2 (13:41→22:00)
[2019-05-29 13:54] LABS: Bilirubin,Urine Negative (Negative); Blood,Urine Moderate (Negative); Clarity,Urine Clear (Clear); Color,Urine Yellow (Yellow); Glucose,Urine (UA) Normal (Normal); Ketones,Urine Negative (Negative); Leukocyte Esterase,Urine Negative (Negative); Nitrite,Urine Negative (Negative); Protein,Urine Negative (Neg-Trace); Specific Gravity,Urine > 1.030 (1.010-1.025); Urobilinogen,Urine Normal (Normal)
[2019-05-29 13:57] LABS: Bacteria,Urine None Seen per hpf (None-Few); Hyaline Casts,Urine Few per lpf (None-Few); RBC,Urine 30-50 per hpf (0-3); Squamous Epithelial Cell,Urine Many per lpf (None-Few)
[2019-05-29] MEDS ORDERED: *HR* Metoprolol 5 MG/5 ML VIAL IVP PRN (16:57)
[2019-05-29] MEDS ORDERED: cefTRIAXone 2,000 MG in Water for inj. (sterile) 20 ML IVP SCH (18:00)
[2019-05-29 19:23] LABS: Alanine Aminotransferase 25 Units/L (7-52); Albumin 2.5 g/dL (3.5-5.7); Albumin/Globulin Ratio 0.9 (1.1-2.2); Alkaline Phosphatase 64 Units/L (34-104); Aspartate Amino Transferase 25 Units/L (13-39); BUN/Creatinine Ratio 32 (6-26); Bilirubin,Total 1.2 mg/dL (0.3-1.0); Blood Urea Nitrogen 18 mg/dL (6-20); Calcium 9.6 mg/dL (8.6-10.3); Carbon Dioxide 26 mEq/L (23-29); Chloride 112 mEq/L (98-107); Globulin 2.8 g/dL (2.4-3.5); Glucose 116 mg/dL (70-105); Osmolality,Calculated 303 (280-300); Potassium 3.7 mEq/L (3.5-5.1); Sodium 145 mEq/L (136-145); Total Protein 5.3 g/dL (6.4-8.9); eGFR For African Americans > 60 (> 60); eGFR For Non-African Americans > 60 (> 60)
[2019-05-29 19:51] LABS: Hepatitis B Surface Antigen Nonreactive (Nonreactive)
[2019-05-29 20:19] LABS: Hepatitis C Virus Antibody Nonreactive (Nonreactive)
[2019-05-29 20:20] LABS: Hepatitis B Core IgM Nonreactive (Nonreactive)
[2019-05-29 20:21] LABS: Hepatitis A Antibody IgM Nonreactive (Nonreactive)
[2019-05-29] MEDS ORDERED: Sennosides 8.6 MG TABLET PO SCH (21:00)
[2019-05-29] MEDS ORDERED: *HR* Metoprolol 5 MG/5 ML VIAL IVP ONE (21:35)
[2019-05-30] MEDS: MetroNIDAZOLE 500 MG/100 ML 500 MG/100 ML BAG IVPB SCH ×4 (01:33→19:23)
[2019-05-30] MEDS: Levalbuterol Neb 1.25 MG/3 ML IH SCH ×6 (03:27→23:35)
[2019-05-30] MEDS: D5% in 0.45% NACL 1,000 ML IVC SCH ×2 (08:58→13:47)
[2019-05-30] MEDS: Gabapentin 100 MG CAPSULE PO SCH ×3 (08:59→19:34)
[2019-05-30] MEDS ORDERED: Aspirin Enteric Coated 81 MG Tablet PO SCH (09:00)
[2019-05-30] MEDS ORDERED: Fluconazole 200 MG/100 ML 200 MG/100 ML BAG IVPB SCH (09:00)
[2019-05-30 11:52] LABS: Basophils % 0.3 %; Eosinophils % 1.3 %; Hematocrit 39.5 % (35.3-44.9); Hemoglobin 12.7 g/dL (11.5-15.4); Immature Granulocytes % 0.5 % (0-4); Immature Platelets 12.6 % (1.1-6.1); Lymphocytes # 0.6 K/mcL (0.6-4.6); Lymphocytes % 5.6 %; Mean Corpuscular HGB Conc 32.2 g/dL (31.6-35.5); Mean Corpuscular Hemoglobin 31.6 pg (28.0-33.3); Mean Corpuscular Volume 98.3 fL (83.0-100.0); Mean Platelet Volume 13.1 fL (9.4-12.4); Monocytes # 1.2 K/mcL (0.0-1.3); Monocytes % 10.7 %; Neutrophils # 9.1 K/mcL (1.6-8.9); Red Blood Count 4.02 M/mcL (3.82-4.97); Red Cell Distribution Width 16.4 % (11.5-14.5); Segmented Neutrophils % 81.6 %; White Blood Count 11.2 K/mcL (4.3-11.1)
[2019-05-30 12:01] LABS: Eosinophils # 0.2 K/mcL (0.0-0.6); Platelet Count 54 K/mcL (140-400)
[2019-05-30] MEDS ORDERED: Melatonin 3 MG TABLET PO PRN (12:26)
[2019-05-30] MEDS ORDERED: Acetaminophen 325 MG TABLET PO PRN (12:26)
[2019-05-30] MEDS ORDERED: Naloxone 0.4 MG/ML INJ IVP PRN (12:26)
[2019-05-30] MEDS ORDERED: Haloperidol Lactate 5 MG/ML VIAL IVP PRN (12:26)
[2019-05-30 12:56] LABS: Alanine Aminotransferase 26 Units/L (7-52); Albumin 2.3 g/dL (3.5-5.7); Albumin/Globulin Ratio 0.8 (1.1-2.2); Alkaline Phosphatase 67 Units/L (34-104); Aspartate Amino Transferase 27 Units/L (13-39); BUN/Creatinine Ratio 27 (6-26); Bilirubin,Total 1.2 mg/dL (0.3-1.0); Blood Urea Nitrogen 15 mg/dL (6-20); Calcium 9.5 mg/dL (8.6-10.3); Carbon Dioxide 23 mEq/L (23-29); Chloride 114 mEq/L (98-107); Globulin 2.9 g/dL (2.4-3.5); Glucose 108 mg/dL (70-105); Magnesium 1.6 mg/dL (1.6-2.6); Osmolality,Calculated 301 (280-300); Phosphorous 2.3 mg/dL (2.7-4.5); Potassium 3.8 mEq/L (3.5-5.1); Sodium 145 mEq/L (136-145); Total Protein 5.2 g/dL (6.4-8.9); eGFR For African Americans > 60 (> 60); eGFR For Non-African Americans > 60 (> 60)
[2019-05-30] MEDS: *HR* Metoprolol 5 MG/5 ML VIAL IVP PRN ×2 (13:45→23:26)
[2019-05-30] MEDS ORDERED: cefTRIAXone 2,000 MG in Water for inj. (sterile) 20 ML IVP SCH (18:00)
[2019-05-30] MEDS: 0.9 % Sodium Chloride 500 ML IVC SCH (19:23)
[2019-05-30] MEDS: Haloperidol Lactate 5 MG/ML VIAL IVP ONE (19:24)
[2019-05-30] MEDS ORDERED: Nitroglycerin 0.4 MG TAB.SUBL SL ONE (23:25)
[2019-05-30] MEDS: DilTIAZem 50 MG in 0.9 % Sodium Chloride 40 ML IVC SCH (23:50)
[2019-05-30] MEDS: *HR* Promethazine 25 MG/ML VIAL IVP PRN (23:57)
[2019-05-31] MEDS ORDERED: Furosemide 20 MG/2 ML VIAL IVP ONE (00:25)
[2019-05-31] MEDS: Nitroglycerin 0.4 MG TAB.SUBL SL SCH (00:49)
[2019-05-31] MEDS: MetroNIDAZOLE 500 MG/100 ML 500 MG/100 ML BAG IVPB SCH ×3 (01:48→19:37)
[2019-05-31] MEDS: Levalbuterol Neb 1.25 MG/3 ML IH SCH ×7 (03:14→23:56)
[2019-05-31] MEDS: DilTIAZem 50 MG in 0.9 % Sodium Chloride 40 ML IVC SCH ×4 (04:41→20:35)
[2019-05-31 05:40] LABS: Red Cell Distribution Width 16.8 % (11.5-14.5)
[2019-05-31 05:42] LABS: Hematocrit 41.7 % (35.3-44.9); Hemoglobin 13.7 g/dL (11.5-15.4); Immature Platelets 12.7 % (1.1-6.1); Mean Corpuscular HGB Conc 32.9 g/dL (31.6-35.5); Mean Corpuscular Hemoglobin 31.6 pg (28.0-33.3); Mean Corpuscular Volume 96.3 fL (83.0-100.0); Mean Platelet Volume 13.5 fL (9.4-12.4); Red Blood Count 4.33 M/mcL (3.82-4.97); White Blood Count 12.1 K/mcL (4.3-11.1)
[2019-05-31 05:56] LABS: Alanine Aminotransferase 26 Units/L (7-52); Albumin 2.5 g/dL (3.5-5.7); Albumin/Globulin Ratio 0.9 (1.1-2.2); Alkaline Phosphatase 65 Units/L (34-104); Aspartate Amino Transferase 33 Units/L (13-39); BUN/Creatinine Ratio 23 (6-26); Bilirubin,Total 1.4 mg/dL (0.3-1.0); Blood Urea Nitrogen 13 mg/dL (6-20); Calcium 9.7 mg/dL (8.6-10.3); Carbon Dioxide 32 mEq/L (23-29); Chloride 110 mEq/L (98-107); Globulin 2.8 g/dL (2.4-3.5); Glucose 118 mg/dL (70-105); Magnesium 1.5 mg/dL (1.6-2.6); Osmolality,Calculated 301 (280-300); Phosphorous 2.8 mg/dL (2.7-4.5); Potassium 3.5 mEq/L (3.5-5.1); Sodium 145 mEq/L (136-145); Total Protein 5.3 g/dL (6.4-8.9); eGFR For African Americans > 60 (> 60); eGFR For Non-African Americans > 60 (> 60)
[2019-05-31 06:01] LABS: Troponin I 0.04 ng/mL (< 0.04)
[2019-05-31] MEDS: *HR* Promethazine 25 MG/ML VIAL IVP PRN ×2 (06:31→12:39)
[2019-05-31] MEDS ORDERED: Aspirin Enteric Coated 81 MG Tablet PO SCH (09:00)
[2019-05-31] MEDS ORDERED: Fluconazole 200 MG/100 ML 200 MG/100 ML BAG IVPB SCH (09:00)
[2019-05-31] MEDS: Gabapentin 100 MG CAPSULE PO SCH ×3 (09:32→19:38)
[2019-05-31] MEDS: D5% in 0.45% NACL 1,000 ML IVC SCH ×2 (09:43→15:34)
[2019-05-31] MEDS ORDERED: *HR* Dextrose 50 % in Water (Syg) 50 ML SYRINGE IVP PRN ×2 (11:54→12:02)
[2019-05-31] MEDS ORDERED: D5% in Water 1,000 ML IVC PRN ×2 (11:54→12:02)
[2019-05-31] MEDS ORDERED: Dextrose Gel 15 GM/37.5 ML TUBE PO PRN ×4 (11:54→12:02)
[2019-05-31] MEDS ORDERED: D10% in Water 500 ML IVC PRN (11:55)
[2019-05-31] MEDS ORDERED: Insulin LISPRO 300 UNITS/3 ML VIAL SQ SCH (12:00)
[2019-05-31] MEDS ORDERED: Acetaminophen 325 MG TABLET PO PRN (12:02)
[2019-05-31] MEDS ORDERED: *HR* Metoprolol 5 MG/5 ML VIAL IVP PRN (12:02)
[2019-05-31] MEDS ORDERED: Haloperidol Lactate 5 MG/ML VIAL IVP PRN (12:02)
[2019-05-31] MEDS ORDERED: Melatonin 3 MG TABLET PO PRN (12:02)
[2019-05-31] MEDS ORDERED: Naloxone 0.4 MG/ML INJ IVP PRN (12:02)
[2019-05-31] MEDS ORDERED: Lidocaine -MPF 1% 5 ML AMPUL INFILT ONE (14:11)
[2019-05-31] MEDS: Insulin LISPRO 300 UNITS/3 ML VIAL SQ SCH ×2 (15:34→19:36)
[2019-05-31] MEDS ORDERED: Clinimix E 5%-15% SOLUTION 2,000 ML with MVI, adult with vitamin K 10 ML IVC SCH (17:00)
[2019-05-31] MEDS ORDERED: Clinimix E 5%-15% SOLUTION 2,000 ML, Parenteral Amino Acid 10% 0 ML with MVI, adult wi... IVC SCH (17:00)
[2019-05-31] MEDS: cefTRIAXone 2,000 MG in Water for inj. (sterile) 20 ML IVP SCH (17:35)
[2019-06-01] MEDS: Insulin LISPRO 300 UNITS/3 ML VIAL SQ SCH ×6 (01:27→20:36)
[2019-06-01] MEDS: DilTIAZem 50 MG in 0.9 % Sodium Chloride 40 ML IVC SCH ×5 (03:15→22:47)
[2019-06-01] MEDS: Levalbuterol Neb 1.25 MG/3 ML IH SCH ×6 (03:45→20:51)
[2019-06-01 03:49] LABS: Basophils % 0.1 %; Eosinophils # 0.2 K/mcL (0.0-0.6); Eosinophils % 1.6 %; Hematocrit 39.3 % (35.3-44.9); Hemoglobin 12.6 g/dL (11.5-15.4); Immature Granulocytes % 0.8 % (0-4); Immature Platelets 11.6 % (1.1-6.1); Lymphocytes # 0.8 K/mcL (0.6-4.6); Lymphocytes % 8.4 %; Mean Corpuscular HGB Conc 32.1 g/dL (31.6-35.5); Mean Corpuscular Volume 96.8 fL (83.0-100.0); Mean Platelet Volume 13.6 fL (9.4-12.4); Monocytes % 9.9 %; Neutrophils # 7.8 K/mcL (1.6-8.9); Red Blood Count 4.06 M/mcL (3.82-4.97); Red Cell Distribution Width 16.9 % (11.5-14.5); Segmented Neutrophils % 79.2 %; White Blood Count 9.9 K/mcL (4.3-11.1)
[2019-06-01 03:56] LABS: BUN/Creatinine Ratio 31 (6-26); Blood Urea Nitrogen 16 mg/dL (6-20); Calcium 9.6 mg/dL (8.6-10.3); Carbon Dioxide 30 mEq/L (23-29); Chloride 111 mEq/L (98-107); Glucose 177 mg/dL (70-105); Magnesium 1.5 mg/dL (1.6-2.6); Osmolality,Calculated 312 (280-300); Potassium 2.9 mEq/L (3.5-5.1); Sodium 148 mEq/L (136-145); eGFR For African Americans > 60 (> 60); eGFR For Non-African Americans > 60 (> 60)
[2019-06-01 04:16] LABS: Platelet Count 66 K/mcL (140-400)
[2019-06-01] MEDS: MetroNIDAZOLE 500 MG/100 ML 500 MG/100 ML BAG IVPB SCH ×3 (04:25→20:36)
[2019-06-01] MEDS ORDERED: Potassium Chloride 40 MEQ, Lidocaine 1% 2 ML in 0.9 % Sodium Chloride 500 ML IVPB ONE ×2 (07:29→23:35)
[2019-06-01] MEDS: Aspirin Enteric Coated 81 MG Tablet PO SCH (09:18)
[2019-06-01] MEDS: Gabapentin 100 MG CAPSULE PO SCH ×3 (09:18→19:40)
[2019-06-01 09:54] LABS: Serine Protease-3 Antibody 1 AU/mL (0-19)
[2019-06-01] MEDS: D5% in 0.45% NACL 1,000 ML IVC SCH (11:41)
[2019-06-01 11:47] LABS: Triglycerides 134 mg/dL (< 150)
[2019-06-01] MEDS ORDERED: *HR* Heparin 5,000 UNIT/ML VIAL IVP ONE (13:34)
[2019-06-01] MEDS ORDERED: *HR* Heparin 5,000 UNIT/ML VIAL IVP PRN ×2 (13:34)
[2019-06-01] MEDS ORDERED: Potassium Phosphate 44 MEQ in 0.9 % Sodium Chloride 250 ML IVPB ONE (14:02)
[2019-06-01] MEDS: Heparin 25,000 UNIT/250 ML D5W 25,000 UNIT/250 ML IV.SOLN IVC SCH (14:52)
[2019-06-01 15:05] LABS: Heparin anti-factor XA UFH < 0.04 IU/mL (0.30-0.70); INR 1.7; Prothrombin Time 19.6 Seconds (9.4-12.1)
[2019-06-01] MEDS ORDERED: Clinimix E 5%-15% SOLUTION 2,000 ML with MVI, adult with vitamin K 10 ML IVC SCH (17:00)
[2019-06-01 17:19] LABS: APTT (LE Anticoag) 26 sec (32-48); Diluted Russell Viper Venom 32 sec (33-44)
[2019-06-01] MEDS: cefTRIAXone 2,000 MG in Water for inj. (sterile) 20 ML IVP SCH (17:26)
[2019-06-01] MEDS: *HR* Promethazine 25 MG/ML VIAL IVP PRN (21:56)
[2019-06-01 22:21] LABS: Magnesium 1.4 mg/dL (1.6-2.6); Potassium 2.9 mEq/L (3.5-5.1)
[2019-06-02] MEDS: Levalbuterol Neb 1.25 MG/3 ML IH SCH ×7 (00:42→23:25)
[2019-06-02] MEDS: Insulin LISPRO 300 UNITS/3 ML VIAL SQ SCH ×5 (01:04→17:12)
[2019-06-02] MEDS: DilTIAZem 50 MG in 0.9 % Sodium Chloride 40 ML IVC SCH ×4 (02:06→17:09)
[2019-06-02 04:03] LABS: Eosinophils % 0.8 %; Hemoglobin 11.3 g/dL (11.5-15.4); Immature Granulocytes % 1.4 % (0-4); Monocytes % 9.4 %; Nucleated Red Blood Cells 0.2 /100 WBC (0)
[2019-06-02 04:05] LABS: Basophils % 0.3 %; Eosinophils # 0.1 K/mcL (0.0-0.6); Hematocrit 34.9 % (35.3-44.9); Lymphocytes # 0.8 K/mcL (0.6-4.6); Lymphocytes % 7.7 %; Mean Corpuscular HGB Conc 32.4 g/dL (31.6-35.5); Mean Corpuscular Hemoglobin 33.1 pg (28.0-33.3); Mean Corpuscular Volume 102.3 fL (83.0-100.0); Mean Platelet Volume 14.3 fL (9.4-12.4); Red Blood Count 3.41 M/mcL (3.82-4.97); Red Cell Distribution Width 17.2 % (11.5-14.5); Segmented Neutrophils % 80.4 %; White Blood Count 10.9 K/mcL (4.3-11.1)
[2019-06-02 04:06] LABS: Neutrophils # 8.8 K/mcL (1.6-8.9); Platelet Count 72 K/mcL (140-400)
[2019-06-02] MEDS: MetroNIDAZOLE 500 MG/100 ML 500 MG/100 ML BAG IVPB SCH (06:22)
[2019-06-02] MEDS: Heparin 25,000 UNIT/250 ML D5W 25,000 UNIT/250 ML IV.SOLN IVC SCH (07:45)
[2019-06-02] MEDS: D5% in 0.45% NACL 1,000 ML IVC SCH (07:47)
[2019-06-02 08:40] LABS: BUN/Creatinine Ratio 35 (6-26); Blood Urea Nitrogen 24 mg/dL (6-20); Calcium 9.2 mg/dL (8.6-10.3); Carbon Dioxide 28 mEq/L (23-29); Chloride 118 mEq/L (98-107); Glucose 149 mg/dL (70-105); Magnesium 2.2 mg/dL (1.6-2.6); Osmolality,Calculated 319 (280-300); Phosphorous 2.6 mg/dL (2.7-4.5); Sodium 151 mEq/L (136-145); eGFR For African Americans > 60 (> 60); eGFR For Non-African Americans > 60 (> 60)
[2019-06-02] MEDS: Aspirin Enteric Coated 81 MG Tablet PO SCH (10:26)
[2019-06-02] MEDS: Gabapentin 100 MG CAPSULE PO SCH ×3 (10:27→21:06)
[2019-06-02] MEDS ORDERED: Potassium Phosphate 44 MEQ in 0.9 % Sodium Chloride 250 ML IVPB ONE (11:03)
[2019-06-02] MEDS ORDERED: D10% in Water 500 ML IVC PRN (11:38)
[2019-06-02] MEDS ORDERED: D5% in Water 1,000 ML IVC SCH (13:15)
[2019-06-02] MEDS: *HR* Promethazine 25 MG/ML VIAL IVP PRN (15:49)
[2019-06-02] MEDS ORDERED: Clinimix E 5%-15% SOLUTION 2,000 ML with MVI, adult with vitamin K 10 ML IVC SCH (17:00)
[2019-06-02] MEDS ORDERED: *HR* Vasopressin 20 UNIT/ML VIAL ONE (23:32)
[2019-06-02] MEDS ORDERED: *HR* Propofol 200 MG/20 ML VIAL IVP ONE (23:35)
[2019-06-02] MEDS ORDERED: Lidocaine HCL 4 ML Topical Solution (Laryng-O-Jet Kit Sterile Pak) TP ONE (23:35)
[2019-06-02] MEDS ORDERED: *HR* Succinylcholine 200 MG/10 ML VIAL IVP ONE (23:35)
[2019-06-02] MEDS ORDERED: Lidocaine -MPF 2% 2 ML VIAL ONE (23:36)
[2019-06-02] MEDS ORDERED: *HR* Rocuronium Bromide 50 MG/5 ML VIAL ONE (23:38)
[2019-06-03] MEDS ORDERED: Dexamethasone 4 MG/ML VIAL ONE ×2 (00:22→20:19)
[2019-06-03] MEDS ORDERED: Ondansetron 4 MG/2 ML VIAL ONE ×2 (00:22→20:19)
[2019-06-03] MEDS ORDERED: Racepinephrine Neb 0.5 ML VIAL IH ONE (00:25)
[2019-06-03] MEDS: Insulin LISPRO 300 UNITS/3 ML VIAL SQ SCH ×6 (02:43→23:33)
[2019-06-03 02:48] LABS: BUN/Creatinine Ratio 37 (6-26); Blood Urea Nitrogen 33 mg/dL (6-20); Calcium 9.2 mg/dL (8.6-10.3); Carbon Dioxide 31 mEq/L (23-29); Chloride 111 mEq/L (98-107); Glucose 162 mg/dL (70-105); Magnesium 2.1 mg/dL (1.6-2.6); Osmolality,Calculated 315 (280-300); Phosphorous 4.6 mg/dL (2.7-4.5); Potassium 4.4 mEq/L (3.5-5.1); Sodium 147 mEq/L (136-145); eGFR For African Americans > 60 (> 60); eGFR For Non-African Americans > 60 (> 60)
[2019-06-03] MEDS: Pantoprazole 40 MG in 0.9 % Sodium Chloride Mini Bag 100 ML IVC SCH ×2 (03:54→09:32)
[2019-06-03] MEDS: Levalbuterol Neb 1.25 MG/3 ML IH SCH ×6 (04:00→23:49)
[2019-06-03] MEDS: Heparin 25,000 UNIT/250 ML D5W 25,000 UNIT/250 ML IV.SOLN IVC SCH ×2 (07:46→10:36)
[2019-06-03] MEDS: Aspirin Enteric Coated 81 MG Tablet PO SCH (09:32)
[2019-06-03] MEDS: Gabapentin 100 MG CAPSULE PO SCH ×3 (09:32→23:34)
[2019-06-03] MEDS: *HR* Metoprolol 5 MG/5 ML VIAL IVP SCH ×2 (12:54→19:03)
[2019-06-03] MEDS: D5 IVC SCH ×2 (13:32→23:33)
[2019-06-03] MEDS: PANTOPRAZOLE IVC SCH ×2 (13:32→23:33)
[2019-06-03] MEDS: WATER IVC SCH ×2 (13:32→23:33)
[2019-06-03] MEDS: DilTIAZem 125 MG in D5% in Water 100 ML IVC SCH (14:59)
[2019-06-03] MEDS ORDERED: Clinimix 5%-20% SOLUTION 2,000 ML with MVI, adult with vitamin K 10 ML, Sodium Acetat... IVC SCH (17:00)
[2019-06-03] MEDS ORDERED: Heparin 1,000 UNITS/500 mL 500 ML ONE (19:08)
[2019-06-03] MEDS ORDERED: Lidocaine -MPF 2% 2 ML VIAL ONE ×2 (19:33→20:19)
[2019-06-03] MEDS ORDERED: *HR* Succinylcholine 200 MG/10 ML VIAL IVP ONE (20:19)
[2019-06-03] MEDS ORDERED: *HR* FentaNYL (PF) 100 MCG/2 ML VIAL ONE ×2 (20:20→22:04)
[2019-06-03] MEDS ORDERED: *HR* Propofol 200 MG/20 ML VIAL IVP ONE (20:20)
[2019-06-03] MEDS ORDERED: CefOXitin 1,000 MG VIAL ONE (20:34)
[2019-06-03] MEDS ORDERED: *HR* Vasopressin 20 UNIT/ML VIAL ONE (20:36)
[2019-06-03] MEDS ORDERED: Acetaminophen IV 1,000 MG/100 ML INFUS..BTL ONE (20:36)
[2019-06-03] MEDS ORDERED: *HR* Rocuronium Bromide 50 MG/5 ML VIAL ONE ×2 (20:42→21:53)
[2019-06-03] MEDS ORDERED: CefOXitin 2,000 MG VIAL ONE (20:52)
[2019-06-03] MEDS ORDERED: *HR* PHENYLEPHRINE 1,000 MCG/10 ML SYRINGE IVP ONE (21:07)
[2019-06-03] MEDS ORDERED: *HR* HYDROMORPHONE 2 MG/ML VIAL ONE (22:55)
[2019-06-03] MEDS ORDERED: Artificial Tears SOLN 15 ML BOTTLE BOTH EYES PRN (23:27)
[2019-06-03] MEDS ORDERED: Naloxone 0.4 MG/ML INJ IVP PRN (23:27)
[2019-06-03] MEDS ORDERED: *HR* HYDROmorphone (PF) 1 MG/ML SYRINGE IVP PRN (23:32)
[2019-06-04] MEDS ORDERED: ceFAZolin 3,000 MG in 0.9 % Sodium Chloride 100 ML IVPB SCH ×2 (00:24→00:30)
[2019-06-04] MEDS: Heparin 25,000 UNIT/250 ML D5W 25,000 UNIT/250 ML IV.SOLN IVC SCH (00:51)
[2019-06-04] MEDS: Insulin LISPRO 300 UNITS/3 ML VIAL SQ SCH ×7 (00:51→23:44)
[2019-06-04] MEDS: *HR* Metoprolol 5 MG/5 ML VIAL IVP SCH ×5 (00:57→23:41)
[2019-06-04] MEDS: MetroNIDAZOLE 500 MG/100 ML 500 MG/100 ML BAG IVPB SCH ×4 (00:57→23:44)
[2019-06-04] MEDS: Artificial Tears SOLN 15 ML BOTTLE BOTH EYES SCH ×6 (00:57→20:29)
[2019-06-04] MEDS: PANTOPRAZOLE IVC SCH ×4 (02:28→14:24)
[2019-06-04] MEDS: WATER IVC SCH ×4 (02:28→14:24)
[2019-06-04] MEDS: D5 IVC SCH ×4 (02:28→14:24)
[2019-06-04] MEDS: Levalbuterol Neb 1.25 MG/3 ML IH SCH ×6 (03:26→23:42)
[2019-06-04] MEDS: FentaNYL (PF) 1,000 MCG in 0.9 % Sodium Chloride 80 ML IVC SCH ×2 (03:26→21:55)
[2019-06-04 03:55] LABS: Basophils % 0.3 %; Lymphocytes % 5.5 %; Mean Corpuscular HGB Conc 30.5 g/dL (31.6-35.5); Mean Corpuscular Volume 102.1 fL (83.0-100.0); Nucleated Red Blood Cells 0.3 /100 WBC (0)
[2019-06-04 03:57] LABS: Basophils # 0.1 K/mcL (0.0-0.2); Hematocrit 39.4 % (35.3-44.9); Immature Granulocytes % 0.8 % (0-4); Immature Platelets 14.8 % (1.1-6.1); Mean Corpuscular Hemoglobin 31.1 pg (28.0-33.3); Mean Platelet Volume 14.1 fL (9.4-12.4); Monocytes # 1.3 K/mcL (0.0-1.3); Monocytes % 7.5 %; Red Blood Count 3.86 M/mcL (3.82-4.97); Red Cell Distribution Width 17.5 % (11.5-14.5); Segmented Neutrophils % 85.9 %; White Blood Count 17.3 K/mcL (4.3-11.1)
[2019-06-04 03:58] LABS: Neutrophils # 14.9 K/mcL (1.6-8.9); Platelet Count 73 K/mcL (140-400)
[2019-06-04 04:22] LABS: Calcium 9.3 mg/dL (8.6-10.3); Phosphorous 5.4 mg/dL (2.7-4.5); Platelet Estimate Decreased (Normal); Reactive Lymphocytes Present (Not Present)
[2019-06-04 04:51] LABS: ABG Base Excess 2 mEq/L (-2 to 3); ABG HCO3 29 mEq/L (21-27); ABG Oxygen Saturation 96 % (95-98); ABG PCO2 52 mmHg (35-45); ABG PH 7.35 pH Units (7.32-7.45); ABG PO2 90 mmHg (85-104); ABG TCO2 30 mEq/L (20-26); Blood Gas Modality AF; Blood Gas VT 450 cc
[2019-06-04] MEDS ORDERED: 0.9 % Sodium Chloride 1,000 ML IVC ONE ×2 (05:25→05:42)
[2019-06-04 07:15] LABS: Bilirubin,Urine Negative (Negative); Blood,Urine Large (Negative); Clarity,Urine Cloudy (Clear); Color,Urine Dark Yellow (Yellow); Glucose,Urine (UA) Normal (Normal); Ketones,Urine Trace mg/dL (Negative); Leukocyte Esterase,Urine Trace (Negative); Nitrite,Urine Negative (Negative); Protein,Urine Negative (Neg-Trace); Specific Gravity,Urine > 1.030 (1.010-1.025); Urobilinogen,Urine Normal (Normal)
[2019-06-04 07:16] LABS: Bacteria,Urine None Seen per hpf (None-Few); Hyaline Casts,Urine None Seen per lpf (None-Few); Squamous Epithelial Cell,Urine Many per lpf (None-Few); WBC,Urine 15-30 per hpf (0-3)
[2019-06-04 07:25] LABS: RBC,Urine 0-3 per hpf (0-3)
[2019-06-04] MEDS: Aspirin Enteric Coated 81 MG Tablet PO SCH (08:01)
[2019-06-04] MEDS: Gabapentin 100 MG CAPSULE PO SCH ×3 (08:01→20:29)
[2019-06-04] MEDS: Dexmedetomidine HCl 400 MCG/100 ML MLS IVC SCH ×2 (08:06→20:28)
[2019-06-04] MEDS: Chlorhexidine Rinse 15 ML MOUTHWASH MM SCH ×2 (08:06→20:29)
[2019-06-04] MEDS: levoFLOXacin 750 MG/150 ML 750 MG/150 ML BAG IVPB SCH (08:07)
[2019-06-04] MEDS: Furosemide 20 MG/2 ML VIAL IVP SCH ×2 (08:59→11:48)
[2019-06-04] MEDS ORDERED: Ringers Solution, Lactated 1,000 ML IVC ONE ×2 (10:04→18:23)
[2019-06-04] MEDS: DilTIAZem 125 MG in D5% in Water 100 ML IVC SCH (11:42)
[2019-06-04] MEDS ORDERED: Ringers Solution, Lactated 1,000 ML ONE (14:33)
[2019-06-04] MEDS ORDERED: Albumin 25% 25gram/100mL 25 GM/100 ML IV.SOLN IVPB ONE ×2 (15:06→18:22)
[2019-06-04] MEDS: Phenylephrine 10 MG in 0.9 % Sodium Chloride 250 ML IVC SCH ×3 (16:50→20:59)
[2019-06-04] MEDS ORDERED: PARENTERAL AMINO ACID 10% IVC SCH ×2 (17:00)
[2019-06-04] MEDS ORDERED: MVI IVC SCH ×2 (17:00)
[2019-06-04] MEDS ORDERED: [UNRECOGNIZED DRUG - OTHER] IVC SCH ×2 (17:00)
[2019-06-04] MEDS ORDERED: CLINIMIX IVC SCH ×2 (17:00)
[2019-06-04] MEDS: *HR* Heparin 5,000 UNIT/ML VIAL SQ SCH (17:42)
[2019-06-04] MEDS ORDERED: OLANZapine 10 MG VIAL IM PRN (18:33)
[2019-06-04] MEDS: Phenylephrine 50 MG in 0.9 % Sodium Chloride 250 ML IVC SCH (22:59)
[2019-06-05] MEDS: Levalbuterol Neb 1.25 MG/3 ML IH SCH ×6 (03:27→23:35)
[2019-06-05 04:02] LABS: Basophils % 0.1 %; Hemoglobin 8.2 g/dL (11.5-15.4); Immature Granulocytes % 0.8 % (0-4); Immature Platelets 13.9 % (1.1-6.1); Lymphocytes # 0.6 K/mcL (0.6-4.6); Lymphocytes % 5.7 %; Mean Corpuscular HGB Conc 30.4 g/dL (31.6-35.5); Mean Corpuscular Hemoglobin 31.4 pg (28.0-33.3); Mean Corpuscular Volume 103.4 fL (83.0-100.0); Mean Platelet Volume 14.2 fL (9.4-12.4); Monocytes # 0.9 K/mcL (0.0-1.3); Neutrophils # 9.2 K/mcL (1.6-8.9); Nucleated Red Blood Cells 0.6 /100 WBC (0); Red Blood Count 2.61 M/mcL (3.82-4.97); Red Cell Distribution Width 17.5 % (11.5-14.5); Segmented Neutrophils % 85.4 %; White Blood Count 10.8 K/mcL (4.3-11.1)
[2019-06-05 04:03] LABS: Platelet Count 37 K/mcL (140-400)
[2019-06-05 04:16] LABS: Calcium 8.8 mg/dL (8.6-10.3); Magnesium 1.7 mg/dL (1.6-2.6); Phosphorous 4.2 mg/dL (2.7-4.5); Potassium 4.7 mEq/L (3.5-5.1)
[2019-06-05 04:22] LABS: Large Platelets Present (Not Present); Platelet Estimate Decreased (Normal)
[2019-06-05 04:23] LABS: Anisocytosis 1+ (Not Present); Macrocytosis Present (Not Present); Smudge Cells Present (Not Present)
[2019-06-05] MEDS: Norepinephrine 4 MG in 0.9 % Sodium Chloride 250 ML IVC SCH (04:30)
[2019-06-05] MEDS: Insulin LISPRO 300 UNITS/3 ML VIAL SQ SCH ×5 (05:28→19:25)
[2019-06-05 05:46] LABS: ABG Base Excess 0 mEq/L (-2 to 3); ABG HCO3 25 mEq/L (21-27); ABG Oxygen Saturation 91 % (95-98); ABG PCO2 42 mmHg (35-45); ABG PH 7.39 pH Units (7.32-7.45); ABG PO2 62 mmHg (85-104); ABG TCO2 27 mEq/L (20-26)
[2019-06-05] MEDS: *HR* Metoprolol 5 MG/5 ML VIAL IVP SCH ×3 (06:02→17:53)
[2019-06-05] MEDS: Furosemide 20 MG/2 ML VIAL IVP SCH (06:15)
[2019-06-05] MEDS: *HR* Heparin 5,000 UNIT/ML VIAL SQ SCH (06:15)
[2019-06-05] MEDS: Phenylephrine 50 MG in 0.9 % Sodium Chloride 250 ML IVC SCH ×3 (06:17→19:54)
[2019-06-05] MEDS ORDERED: Furosemide 40 MG/4 ML VIAL IVP ONE (06:44)
[2019-06-05] MEDS: Albumin 25% 25gram/100mL 25 GM/100 ML IV.SOLN IVC SCH ×2 (07:53→09:00)
[2019-06-05] MEDS: Pantoprazole 40 MG VIAL IVP SCH (07:55)
[2019-06-05] MEDS: MetroNIDAZOLE 500 MG/100 ML 500 MG/100 ML BAG IVPB SCH ×2 (07:55→14:22)
[2019-06-05] MEDS: levoFLOXacin 750 MG/150 ML 750 MG/150 ML BAG IVPB SCH (07:55)
[2019-06-05] MEDS: Gabapentin 100 MG CAPSULE PO SCH ×3 (07:55→19:25)
[2019-06-05] MEDS: MVI IVC SCH ×2 (08:10→17:36)
[2019-06-05] MEDS: PARENTERAL AMINO ACID 10% IVC SCH ×2 (08:10→17:36)
[2019-06-05] MEDS: CLINIMIX IVC SCH ×2 (08:10→17:36)
[2019-06-05] MEDS: [UNRECOGNIZED DRUG - OTHER] IVC SCH ×2 (08:10→17:36)
[2019-06-05] MEDS ORDERED: *HR* Rocuronium Bromide 50 MG/5 ML VIAL IVC ONE (09:14)
[2019-06-05] MEDS ORDERED: *HR* Etomidate 20 MG/10 ML AMPUL IVP ONE (09:14)
[2019-06-05 09:29] LABS: Hemoglobin 7.7 g/dL (11.5-15.4)
[2019-06-05] MEDS: Aspirin Enteric Coated 81 MG Tablet PO SCH (09:30)
[2019-06-05 09:31] LABS: Hematocrit 25.2 % (35.3-44.9); Immature Platelets 16.3 % (1.1-6.1); Mean Corpuscular HGB Conc 30.6 g/dL (31.6-35.5); Mean Corpuscular Hemoglobin 31.4 pg (28.0-33.3); Mean Corpuscular Volume 102.9 fL (83.0-100.0); Mean Platelet Volume 14.5 fL (9.4-12.4); Nucleated Red Blood Cells 0.9 /100 WBC (0); Red Blood Count 2.45 M/mcL (3.82-4.97); Red Cell Distribution Width 17.4 % (11.5-14.5); White Blood Count 10.4 K/mcL (4.3-11.1)
[2019-06-05 09:40] LABS: Platelet Count 32 K/mcL (140-400)
[2019-06-05] MEDS ORDERED: Scopolamine Patch 1.5 MG PATCH.TD72 TD SCH (10:45)
[2019-06-05 11:20] LABS: Lymphocytes # 0.6 K/mcL (0.6-4.6); Monocytes # 0.4 K/mcL (0.0-1.3); Neutrophils # 9.4 K/mcL (1.6-8.9); Platelet Estimate Decreased (Normal)
[2019-06-05] MEDS: Dexmedetomidine HCl 400 MCG/100 ML MLS IVC SCH ×2 (13:35→18:42)
[2019-06-05] MEDS: DilTIAZem 125 MG in D5% in Water 100 ML IVC SCH (14:13)
[2019-06-05] MEDS ORDERED: Furosemide 20 MG/2 ML VIAL IVP ONE (14:44)
[2019-06-05] MEDS ORDERED: Potassium Chloride 40 MEQ, Lidocaine 1% 2 ML in 0.9 % Sodium Chloride 500 ML IVPB ONE (14:45)
[2019-06-05] MEDS ORDERED: Furosemide 100 MG in 0.9 % Sodium Chloride 50 ML IVPB ONE (15:11)
[2019-06-05] MEDS: Albumin 25% 25gram/100mL 25 GM/100 ML IV.SOLN IVPB SCH ×2 (15:35→23:12)
[2019-06-05 16:17] LABS: ABG Base Excess 0 mEq/L (-2 to 3); ABG HCO3 26 mEq/L (21-27); ABG Oxygen Saturation 97 % (95-98); ABG PCO2 48 mmHg (35-45); ABG PH 7.34 pH Units (7.32-7.45); ABG PO2 92 mmHg (85-104); ABG TCO2 28 mEq/L (20-26); Blood Gas Modality ST; Blood Gas Pressure Support 12 cm H2O
[2019-06-05] MEDS ORDERED: Artificial Tears SOLN 15 ML BOTTLE BOTH EYES PRN (17:04)
[2019-06-05] MEDS: Cefepime HCl 2,000 MG in Water for inj. (sterile) 20 ML IVP SCH ×2 (17:37→23:12)
[2019-06-05 19:20] LABS: Uric Acid 4.2 mg/dL (2.3-7.6)
[2019-06-05] MEDS: Artificial Tears SOLN 15 ML BOTTLE BOTH EYES SCH ×2 (19:53→23:08)
[2019-06-05] MEDS: Chlorhexidine Rinse 15 ML MOUTHWASH MM SCH (19:53)
[2019-06-05 20:33] LABS: ABG Base Excess -5 mEq/L (-2 to 3); ABG HCO3 25 mEq/L (21-27); ABG Oxygen Saturation 83 % (95-98); ABG PCO2 85 mmHg (35-45); ABG PH 7.08 pH Units (7.32-7.45); ABG PO2 68 mmHg (85-104); ABG TCO2 28 mEq/L (20-26); Blood Gas Modality AF; Blood Gas VT 450 cc
[2019-06-05] MEDS ORDERED: Sodium Bicarbonate 50 MEQ/50 ML VIAL IVP ONE (20:55)
[2019-06-05 22:20] LABS: ABG Base Excess -4 mEq/L (-2 to 3); ABG HCO3 27 mEq/L (21-27); ABG Oxygen Saturation 89 % (95-98); ABG PCO2 87 mmHg (35-45); ABG PO2 80 mmHg (85-104); ABG TCO2 30 mEq/L (20-26); Blood Gas Modality AF; Blood Gas VT 550 cc
[2019-06-05] MEDS: FentaNYL (PF) 1,000 MCG in 0.9 % Sodium Chloride 80 ML IVC SCH (23:08)
[2019-06-06] MEDS: *HR* Metoprolol 5 MG/5 ML VIAL IVP SCH ×5 (00:09→23:17)
[2019-06-06] MEDS: Insulin LISPRO 300 UNITS/3 ML VIAL SQ SCH ×7 (00:09→23:38)
[2019-06-06] MEDS: Dexmedetomidine HCl 400 MCG/100 ML MLS IVC SCH ×4 (00:09→20:20)
[2019-06-06] MEDS: MetroNIDAZOLE 500 MG/100 ML 500 MG/100 ML BAG IVPB SCH (00:57)
[2019-06-06] MEDS: Norepinephrine 4 MG in 0.9 % Sodium Chloride 250 ML IVC SCH ×2 (02:24→06:51)
[2019-06-06] MEDS: Artificial Tears SOLN 15 ML BOTTLE BOTH EYES SCH ×6 (03:13→23:20)
[2019-06-06] MEDS: Levalbuterol Neb 1.25 MG/3 ML IH SCH ×6 (03:30→23:30)
[2019-06-06 03:40] LABS: Basophils % 0.3 %; Lymphocytes % 6.5 %; Red Cell Distribution Width 19.9 % (11.5-14.5)
[2019-06-06 03:42] LABS: Hematocrit 30.2 % (35.3-44.9); Hemoglobin 9.3 g/dL (11.5-15.4); Immature Granulocytes % 1.1 % (0-4); Immature Platelets 19.9 % (1.1-6.1); Lymphocytes # 0.4 K/mcL (0.6-4.6); Mean Corpuscular HGB Conc 30.8 g/dL (31.6-35.5); Mean Corpuscular Hemoglobin 31.6 pg (28.0-33.3); Mean Corpuscular Volume 102.7 fL (83.0-100.0); Mean Platelet Volume 14.9 fL (9.4-12.4); Monocytes # 0.2 K/mcL (0.0-1.3); Monocytes % 3.4 %; Neutrophils # 5.4 K/mcL (1.6-8.9); Nucleated Red Blood Cells 1.5 /100 WBC (0); Red Blood Count 2.94 M/mcL (3.82-4.97); Segmented Neutrophils % 88.7 %; White Blood Count 6.1 K/mcL (4.3-11.1)
[2019-06-06 03:51] LABS: Platelet Count 26 K/mcL (140-400)
[2019-06-06 03:54] LABS: Magnesium 1.6 mg/dL (1.6-2.6); Potassium 4.9 mEq/L (3.5-5.1)
[2019-06-06 04:17] LABS: ABG Base Excess -4 mEq/L (-2 to 3); ABG HCO3 24 mEq/L (21-27); ABG Oxygen Saturation 91 % (95-98); ABG PCO2 60 mmHg (35-45); ABG PH 7.22 pH Units (7.32-7.45); ABG PO2 75 mmHg (85-104); ABG TCO2 26 mEq/L (20-26); Blood Gas Modality AF; Blood Gas VT 550 cc
[2019-06-06 04:19] LABS: Anisocytosis 2+ (Not Present); Large Platelets Present (Not Present); Macrocytosis Present (Not Present); Polychromasia 1+ (Not Present)
[2019-06-06 04:20] LABS: Platelet Estimate Decreased (Normal)
[2019-06-06] MEDS: FentaNYL (PF) 1,000 MCG in 0.9 % Sodium Chloride 80 ML IVC SCH (04:58)
[2019-06-06] MEDS: Phenylephrine 50 MG in 0.9 % Sodium Chloride 250 ML IVC SCH ×3 (04:59→20:22)
[2019-06-06] MEDS ORDERED: 0.9 % Sodium Chloride 250 ML IVC SCH (06:30)
[2019-06-06 06:52] LABS: Heparin anti-factor XA UFH < 0.04 IU/mL (0.30-0.70)
[2019-06-06] MEDS ORDERED: 0.9 % Sodium Chloride 250 ML ONE (08:42)
[2019-06-06] MEDS: Chlorhexidine Rinse 15 ML MOUTHWASH MM SCH ×2 (08:53→19:34)
[2019-06-06] MEDS: Pantoprazole 40 MG VIAL IVP SCH (08:53)
[2019-06-06] MEDS: Albumin 25% 25gram/100mL 25 GM/100 ML IV.SOLN IVPB SCH ×3 (08:54→23:19)
[2019-06-06] MEDS: Cefepime HCl 2,000 MG in Water for inj. (sterile) 20 ML IVP SCH ×2 (08:54→18:26)
[2019-06-06] MEDS: Furosemide 20 MG/2 ML VIAL IVP SCH (08:54)
[2019-06-06] MEDS ORDERED: Vancomycin 1,750 MG in 0.9 % Sodium Chloride 250 ML IVPB SCH (09:00)
[2019-06-06] MEDS: Gabapentin 100 MG CAPSULE PO SCH ×3 (09:09→19:35)
[2019-06-06] MEDS: Aspirin Enteric Coated 81 MG Tablet PO SCH (09:09)
[2019-06-06 09:24] LABS: INR 1.9; Prothrombin Time 22.1 Seconds (9.4-12.1)
[2019-06-06 09:26] LABS: Activated Partial Thrombo Time 44.6 Seconds (26.0-36.0)
[2019-06-06 10:07] LABS: ABG Base Excess -3 mEq/L (-2 to 3); ABG HCO3 25 mEq/L (21-27); ABG Oxygen Saturation 85 % (95-98); ABG PCO2 53 mmHg (35-45); ABG PH 7.27 pH Units (7.32-7.45); ABG PO2 57 mmHg (85-104); ABG TCO2 26 mEq/L (20-26); Blood Gas Modality AF; Blood Gas VT 550 cc
[2019-06-06] MEDS ORDERED: Furosemide 20 MG/2 ML VIAL IVP ONE (10:39)
[2019-06-06] MEDS ORDERED: Albumin 25% 25gram/100mL 25 GM/100 ML IV.SOLN IVPB ONE (10:39)
[2019-06-06] MEDS: Norepinephrine 8 MG in 0.9 % Sodium Chloride 250 ML IVC SCH ×3 (10:58→20:51)
[2019-06-06 11:37] LABS: ABG Base Excess -3 mEq/L (-2 to 3); ABG HCO3 25 mEq/L (21-27); ABG Oxygen Saturation 70 % (95-98); ABG PCO2 57 mmHg (35-45); ABG PH 7.25 pH Units (7.32-7.45); ABG PO2 43 mmHg (85-104); ABG TCO2 27 mEq/L (20-26); Blood Gas Modality AF; Blood Gas VT 500 cc
[2019-06-06] MEDS ORDERED: Aminoglycoside Consult 1 EACH MC ONE (11:44)
[2019-06-06 12:47] LABS: Hematocrit 30.8 % (35.3-44.9); Hemoglobin 9.6 g/dL (11.5-15.4); Mean Corpuscular HGB Conc 31.2 g/dL (31.6-35.5); Mean Corpuscular Hemoglobin 31.9 pg (28.0-33.3); Mean Corpuscular Volume 102.3 fL (83.0-100.0); Mean Platelet Volume 11.6 fL (9.4-12.4); Red Blood Count 3.01 M/mcL (3.82-4.97); Red Cell Distribution Width 20.1 % (11.5-14.5)
[2019-06-06 12:48] LABS: Platelet Count 43 K/mcL (140-400); White Blood Count 9.5 K/mcL (4.3-11.1)
[2019-06-06 13:06] LABS: Albumin 3.6 g/dL (3.5-5.7); Albumin/Globulin Ratio 2.1 (1.1-2.2); Bilirubin,Direct 0.8 mg/dL (0.0-0.2); Bilirubin,Total 1.8 mg/dL (0.3-1.0); Globulin 1.7 g/dL (2.4-3.5); Total Protein 5.3 g/dL (6.4-8.9)
[2019-06-06] MEDS: DilTIAZem 125 MG in D5% in Water 100 ML IVC SCH (13:14)
[2019-06-06] MEDS: Hydrocortisone Sodium Succ 100 MG/2 ML VIAL IVP SCH ×2 (16:45→23:19)
[2019-06-06] MEDS: Vasopressin 40 UNIT in D5% in Water 100 ML IVC SCH (16:51)
[2019-06-06] MEDS ORDERED: MVI IVC SCH (17:00)
[2019-06-06] MEDS ORDERED: [UNRECOGNIZED DRUG - OTHER] IVC SCH (17:00)
[2019-06-06] MEDS ORDERED: PARENTERAL AMINO ACID 10% IVC SCH (17:00)
[2019-06-06] MEDS ORDERED: CLINIMIX IVC SCH (17:00)
[2019-06-06] MEDS ORDERED: *HR* Vecuronium 10 MG VIAL IVP ONE (17:44)
[2019-06-06] MEDS: Vecuronium 50 MG in 0.9 % Sodium Chloride 200 ML IVC SCH (20:50)
[2019-06-07] MEDS: Phenylephrine 50 MG in 0.9 % Sodium Chloride 250 ML IVC SCH ×2 (01:15→05:55)
[2019-06-07] MEDS: Norepinephrine 8 MG in 0.9 % Sodium Chloride 250 ML IVC SCH ×2 (01:16→05:56)
[2019-06-07 03:30] LABS: Basophils # 0.1 K/mcL (0.0-0.2); Basophils % 0.7 %; Eosinophils % 0.1 %; Hematocrit 27.8 % (35.3-44.9); Hemoglobin 8.5 g/dL (11.5-15.4); Immature Platelets 18.8 % (1.1-6.1); Lymphocytes # 0.6 K/mcL (0.6-4.6); Lymphocytes % 5.1 %; Mean Corpuscular HGB Conc 30.6 g/dL (31.6-35.5); Mean Corpuscular Hemoglobin 33.3 pg (28.0-33.3); Mean Platelet Volume 14.1 fL (9.4-12.4); Monocytes # 0.3 K/mcL (0.0-1.3); Monocytes % 2.4 %; Neutrophils # 9.6 K/mcL (1.6-8.9); Red Blood Count 2.55 M/mcL (3.82-4.97); Red Cell Distribution Width 20.7 % (11.5-14.5); Segmented Neutrophils % 85.7 %; White Blood Count 11.2 K/mcL (4.3-11.1)
[2019-06-07] MEDS: Levalbuterol Neb 1.25 MG/3 ML IH SCH ×2 (03:30→07:23)
[2019-06-07 03:31] LABS: Platelet Count 57 K/mcL (140-400)
[2019-06-07] MEDS: Dexmedetomidine HCl 400 MCG/100 ML MLS IVC SCH (03:31)
[2019-06-07] MEDS: Insulin LISPRO 300 UNITS/3 ML VIAL SQ SCH (03:32)
[2019-06-07] MEDS: *HR* Metoprolol 5 MG/5 ML VIAL IVP SCH (03:33)
[2019-06-07] MEDS: Artificial Tears SOLN 15 ML BOTTLE BOTH EYES SCH (03:33)
[2019-06-07 03:39] LABS: INR 2.4; Prothrombin Time 27.1 Seconds (9.4-12.1)
[2019-06-07] MEDS: Vecuronium 50 MG in 0.9 % Sodium Chloride 200 ML IVC SCH (03:40)
[2019-06-07 04:03] LABS: Anisocytosis 2+ (Not Present); Pappenheimer Bodies 1+ (Not Present); Platelet Estimate Decreased (Normal); Poikilocytosis 1+ (Not Present)
[2019-06-07 04:36] LABS: Magnesium 1.7 mg/dL (1.6-2.6); Phosphorous 7.8 mg/dL (2.7-4.5)
[2019-06-07 04:41] LABS: ABG Base Excess -12 mEq/L (-2 to 3); ABG HCO3 18 mEq/L (21-27); ABG Oxygen Saturation 81 % (95-98); ABG PCO2 57 mmHg (35-45); ABG PO2 62 mmHg (85-104); ABG TCO2 20 mEq/L (20-26); Blood Gas Modality AF; Blood Gas VT 500 cc
[2019-06-07] MEDS: Hydrocortisone Sodium Succ 100 MG/2 ML VIAL IVP SCH (05:25)
[2019-06-07] MEDS: Cefepime HCl 2,000 MG in Water for inj. (sterile) 20 ML IVP SCH (05:25)
[2019-06-07] MEDS: Vasopressin 40 UNIT in D5% in Water 100 ML IVC SCH (07:57)
[2019-06-07 08:16] VITALS: BP 71/42
[2019-06-07] MEDS: Pantoprazole 40 MG VIAL IVP SCH (08:21)
[2019-06-07] MEDS: Albumin 25% 25gram/100mL 25 GM/100 ML IV.SOLN IVPB SCH (08:22)
[2019-06-07] MEDS ORDERED: Sodium Bicarbonate 50 MEQ/50 ML VIAL IVP ONE (08:25)
[2019-06-07] MEDS ORDERED: levoFLOXacin 750 MG/150 ML 750 MG/150 ML BAG IVPB SCH (09:00)
[2019-06-07 11:47] LABS: Antiphospholipid IgG High Spec 7 GPL (0-14); Antiphospholipid IgM High Spec 8 MPL (0-14)
== END 2019-06-07 11:45 | disposition expired | DRG 853 ==
LOC: EMEROOARM 07:29 → 2NNU 07:29 → SUATTDRO 13:13 → ICNU 14:02 → 2ANU 05-22 16:11 → ICNU 05-29 12:14 → 2ANU 05-30 14:50 → ICNU 05-31 → 2ANU 05-31 21:00 → ICNU 06-03 20:32
PROVIDERS: ADMIT Pediatrics; ATTEND Internal Medicine